=== PATIENT | female | born 1930 | race Caucasian/White ===

== ENCOUNTER 2017-02-09 18:30 | Inpatient (IN) ==
[2017-02-09] MEDS ORDERED: HYDROMORPHONE 2 MG/ML INJECTION IVP ONE (18:52)
--- NOTE | 2017-02-09 18:56 | Emergency Department Report ---
Medical Clearance HPI - General Chief complaint: Medical Clearance Stated complaint: Medical Clearance for [facility] Time Seen by Provider: 02/09/17 18:52 Source: patient, EMS Mode of arrival: EMS Limitations: altered mental status - History of Present Illness HPI Narrative: Vision has been accepted to [facility] for acute psychiatric disorder of the elderly. Poorly the patient had been wandering around in her yard when she fell, and at the time wasn't an acute psychotic break. Patient was asked to be seen through the ER since her blood pressure had been running high in the systolic range, 200/76. On arrival the patient's blood pressure was 200/78, and the patient complained of mild right shoulder pain. In review of the chart it seen that the patient has a minimally displaced humeral head fracture, but has not been given any pain medication. Patient is still accepted to [facility], the rest of the physical exam is essentially normal, and the patient is given half milligram of IV Dilaudid to help treat her pain and will be transported to [facility] currently. Allergies/Adverse reactions: Allergies Allergy/AdvReac Type Severity Reaction Status Date / Time Penicillins Allergy Verified 02/09/17 18:45 Sulfa (Sulfonamide Allergy Verified 02/09/17 18:45 Antibiotics) PFSH Dementia with acute psychosis Right humeral head fracture Physical Exam - Limitations Limitations: no limitations - General General appearance: alert - Normal Exams: Head:: Normocephalic without trauma Eyes:: Pupils are PERRLA w/ EOMI, No scleral icterus, irritation, or foreign bodies noted ENMT:: No facial trauma, nasal exudates, pharyngeal erythema, or exudates are noted Neck:: Full range of motion, without adenopathy, JVD, bruits or thyromegaly Chest/Respirations:: Clear all chow, with good airflow, and symmetry bilaterally Cardiovascular:: Regular rate and rhythm, without murmur or gallop, Pulses 2+ all extremities, capillary refill, <2 seconds all extremities Abdomen:: Bowel sounds positive, soft, non-tender, non-distended, no hepatosplenomegaly, masses or bruits noted Lymphatic:: No lymphadenopathy, or lymphedema noted Integumentary:: No rashes, hives, or bruising noted, hair and nails, without abnormality Neurological:: Patient is alert, and oriented, cranial nerves, motor/sensory/ cerebellar, exams w/o gross deficits, to observation Psychiatric:: Patient exhibits, appropriate attention, emotion and affect - Extremities Exam Extremities exam: Present: other (right upper shoulder pain, lateral. Patient is in a shoulder sling and well immobilized.) Medical Clearance - [facility] Narrative Medical decision making narrative: Patient is cleared medically, given 0.5 mg Dilaudid IV for shoulder pain after fracture, and is transported degenerations as planned. Disposition Clinical Impression: Dementia with psychosis Humeral head fracture Qualifiers: Encounter type: initial encounter Fracture type: closed Laterality: right Qualified Code(s): S42.291A - Other displaced fracture of upper end of right humerus, initial encounter for closed fracture Disposition: 65 To Psych Hosp/Unit Condition: Improved - Seen By: physician
[2017-02-09] MEDS ORDERED: ENALAPRILAT 1.25 MG/ML IVP SCH (20:00)
--- OUTSIDE RECORDS SUMMARY | 2017-02-09 21:16 | External Medical Summary | Continuity of Care Document ---
:1930 Author Organization [facility] Care Team Providers Name Role Phone RAMEZ LOPEZ MD Unavailable Unavailable Insurance Providers Payer Name Policy Number Subscriber Name Relationship Medicare A And B [id number] Isa Lantigua 18 Self / Same As Patient Blue Cross [facility] Supp [id number] Isa Lantigua 18 Self / Same As Patient Advance Directives Directive Response Recorded Date/Time Advanced Directives Yes 08/08/15 2:22pm Type Durable Power of Microfilm Clerk 08/08/15 2:22pm Type Living Will 08/08/15 2:22pm Chief Complaint and Reason for Visit Chief Complaint Cardiac Complaint Reason for Visit [id number] Vertigo Anginal equivalent Problems Active Problems Medical Problem Onset Date Status Abdominal pain 12/28/2011 Resolved Anginal equivalent Unknown Acute Hypertensive emergency 03/31/2014 Acute Otitis media Unknown Acute Urinary frequency ~12/04/2013 Acute Urinary retention ~12/04/2013 Acute Vertigo Unknown Acute Medications Current Home Medications Medication Dose Units Route Directions Days/Qty Instructions Start Date Pantoprazole Sod 40 Mg 40 Mg ORAL Twice A Day 12/28/11 Diltiazem Hcl 240 Mg 240 Mg ORAL Daily 12/04/13 Multivitamin 1 Each 1 Each ORAL Daily 12/04/13 Vitamin C/Vitamin E 1 1 Tab ORAL Daily 12/04/13 Tab Cholecalciferol (Vitamin 1,000 Unit ORAL Daily 12/04/13 D3) 1,000 Unit [place] 3 Polyunsat Fatty 1,000 Mg ORAL Daily 03/31/14 Acids 1,000 Mg Losartan Potassium 100 100 Mg ORAL Daily 30 04/05/14 Mg Metoprolol Succinate 50 50 Mg ORAL Twice A Day 60 04/05/14 Mg Hydrochlorothiazide 25 25 Mg ORAL Daily 30 04/05/14 Mg Meclizine Hcl (Antivert) 12.5 Mg ORAL As Directed 08/08/15 12.5 Mg Past Home Medications Medication Directions Ordered Status Metoprolol Succinate 25 Mg Tab, 12/28/11 Discontinued Dexamethasone 15 Ml Drops.susp, 12/28/11 Discontinued [place]ldon-3 Fatty Acids 300 Mg Capsule, 12/28/11 Discontinued Losartan Potassium (Cozaar) 50 Mg Tablet, 50 Mg Oral Daily 12/04/13 Discontinued Isosorbide Dinitrate 30 Mg Tablet, 30 Mg Oral Daily 12/04/13 Discontinued Nitroglycerin 1 Each Patch.td24, 1 Each Transdermal Daily 12/04/13 Discontinued Social History Social History Problem Response Recorded Date/Time Onset Date Status Exposure to occupational hazards No 03/31/2014 3:03pm Query Response Start Date Stop Date Smoking Status Never smoker Hospital Discharge Instructions No hospital discharge instructions. Plan of Care Discharge Date 08/08/15 4:37pm Disposition 01 HOME OR SELF-CARE Condition at Discharge Stable Instructions/Education Provided Angina (ED) Vertigo (ED) Chronic Hypertension (ED) Prescriptions See Medication Section Referrals RAMEZ LOPEZ MD - Additional Instructions/Education You have had uncontrolled hypertension with high blood pressures likely contributing to your jaw pain and dizziness. You were given a strong blood pressure medication (labetolol) in your IV to bring your blood pressure down for a few hours, so be careful when getting up on your feet to avoid fainting. Per your wishes (and those of your family) you are not being admitted to the hospital. You should call Dr. Lopez's office today to arrange follow up care. Resume all your home medicaitons. Return to the ER if you get worse. Some of your test results may not be complete prior to your leaving the Emergency Department. The Emergency Department is not authorized to give test results over the phone. Please contact the doctor's office listed in this packet of information for your final results. Follow up with your primary care physician or return to the Emergency Department for worsening or worrisome symptoms. * Emergency Department phone number: [phone], x [phone]* MEDICAL RECORD If you need copies of your X-rays, call [phone]. If you need copies of your medical record, including lab results, a signed authorization for release of records will be required. A telephone call for release of Health Information is not allowed. BILLING Billing can sometimes be confusing and frustrating. To help avoid confusion in the future, please take a moment to acquaint yourself with the billing parties for services. SERVICE BILLING [employer] Emergency Room Services [facility] Physician Services [facility] X-[facility] [place] [facility] Patients will receive bills for services from the appropriate provider. If you have any questions about your [facility] bill, our staff will be happy to assist you. Please call [phone], and ask for the billing department. THANK YOU for choosing [facility] as your emergency care provider! Care Plan and Goals ~~Discharge Care Plan~~ Problem: Chest, epigastric or chest wall pain Goal: Decreased pain Instructions: Take medication(s) as directed. Follow home discharge instructions. Follow up with primary care physician or pet supplies salesperson as directed. Functional Status No functional status results. Allergies, Adverse Reactions, Alerts Allergen Type Severity Reaction Status Last Updated Penicillin Allergy Unknown Active 08/08/15 Sulfa (Sulfonamide Antibiotics) Allergy Unknown Active 08/08/15 Immunizations No immunization records. Vital Signs Acute Vital Signs Vital Response Date/Time Pulse 66 bpm 08/08/2015 4:35pm Respirations 18 08/08/2015 4:35pm Height 5 ft 4 in Weight 132 lb Body Mass Index 22.0 kg/m^2 Results Laboratory Results Test Name Result Units Flags Reference Collection Result Comments Date/Time Date/Time White Blood Count 8.79 10^3uL 4.0-11.0 08/08/2015 08/08/2015 2:28pm 2:46pm Red Blood Count 4.45 10^6uL 4.00-5.00 08/08/2015 08/08/2015 2:28pm 2:46pm Hemoglobin 12.9 g/dL 12.0-15.5 08/08/2015 08/08/2015 2:28pm 2:46pm Hematocrit 38.60 % 35.00-45.00 08/08/2015 08/08/2015 2:28pm 2:46pm Mean Corpuscular 87 FL 80-100 08/08/2015 08/08/2015 Volume 2:28pm 2:46pm Mean Corpuscular 29.0 PG 26.0-34.0 08/08/2015 08/08/2015 Hemoglobin 2:28pm 2:46pm Mean Corpuscular 33.4 g/dL 31.0-37.0 08/08/2015 08/08/2015 Hemoglobin Concent 2:28pm 2:46pm Red Cell 13.7 % 11.8-15.6 08/08/2015 08/08/2015 Distribution Width 2:28pm 2:46pm Platelet Count 238 10^3uL 150-450 08/08/2015 08/08/2015 2:28pm 2:46pm Mean Platelet 10.2 FL H 6.0-9.5 08/08/2015 08/08/2015 Volume 2:28pm 2:46pm Neutrophils (%) 64 % 51-67 08/08/2015 08/08/2015 (Auto) 2:28pm 2:46pm Lymphocytes (%) 27 % 20-46 08/08/2015 08/08/2015 (Auto) 2:28pm 2:46pm Monocytes (%) 8 % 3-11 08/08/2015 08/08/2015 (Auto) 2:28pm 2:46pm Eosinophils (%) 1 % 0-4 08/08/2015 08/08/2015 (Auto) 2:28pm 2:46pm Basophils (%) 0 % 0-2 08/08/2015 08/08/2015 (Auto) 2:28pm 2:46pm Neutrophils # 5.6 X10^3 08/08/2015 08/08/2015 (Auto) 2:28pm 2:46pm Lymphocytes # 2.4 X10^3 08/08/2015 08/08/2015 (Auto) 2:28pm 2:46pm Monocytes # (Auto) 0.7 X10^3 08/08/2015 08/08/2015 2:28pm 2:46pm Eosinophils # 0.1 10^3uL 08/08/2015 08/08/2015 (Auto) 2:28pm 2:46pm Basophils # (Auto) 0.0 10^3uL 08/08/2015 08/08/2015 2:28pm 2:46pm Prothrombin Time 13.3 SEC 12.0-14.5 08/08/2015 08/08/2015 2:28pm 2:46pm Prothromb Time 1.0 0.8-1.4 08/08/2015 08/08/2015 International 2:28pm 2:46pm Ratio Volume Urine 12 mL 08/08/2015 08/08/2015 Centrifuged 3:00pm 3:47pm Urine Collection CLEAN 08/08/2015 08/08/2015 Type CATCH 3:00pm 3:47pm Urine Color Yellow 08/08/2015 08/08/2015 3:00pm 3:44pm Urine Clarity Slightly 08/08/2015 08/08/2015 Cloudy 3:00pm 3:44pm Urine pH 7.0 5.0 - 8.0 08/08/2015 08/08/2015 3:00pm 3:44pm Urine Specific 1.025 1.005-1.030 08/08/2015 08/08/2015 [place] 3:00pm 3:44pm Urine Protein Negative Negative 08/08/2015 08/08/2015 3:00pm 3:44pm Urine Glucose (UA) Negative Negative 08/08/2015 08/08/2015 3:00pm 3:44pm Urine RBC (Auto) Trace-inta H Negative 08/08/2015 08/08/2015 ct 3:00pm 3:44pm Urine Ketones Negative Negative 08/08/2015 08/08/2015 3:00pm 3:44pm Urine Nitrite Negative Negative 08/08/2015 08/08/2015 3:00pm 3:44pm Urine Bilirubin Negative Negative 08/08/2015 08/08/2015 3:00pm 3:44pm Urine Urobilinogen 0.2 mg/dL 0.2-1.0 08/08/2015 08/08/2015 3:00pm 3:44pm Urine Leukocyte Negative Negative 08/08/2015 08/08/2015 Esterase 3:00pm 3:44pm Urine RBC 2-5 /HPF 08/08/2015 08/08/2015 3:00pm 3:47pm Urine WBC 2-5 /HPF 08/08/2015 08/08/2015 3:00pm 3:47pm Urine Bacteria None Seen /HPF 08/08/2015 08/08/2015 3:00pm 3:47pm Urine Squamous 50-100 /LPF 08/08/2015 08/08/2015 Epithelial Cells 3:00pm 3:47pm Sodium Level 145 mmol/L 135-150 08/08/2015 08/08/2015 2:28pm 2:47pm Potassium Level 4.0 mmol/L 3.5-5.1 08/08/2015 08/08/2015 2:28pm 2:47pm Chloride Level 102 mmol/L 98-108 08/08/2015 08/08/2015 2:28pm 2:47pm Carbon Dioxide 30 mmol/L H 22-29 08/08/2015 08/08/2015 Level 2:28pm 2:47pm Anion Gap 16.4 MEQ/L H 3-15 08/08/2015 08/08/2015 2:28pm 2:47pm Blood Urea 24 mg/dL H 7-18 08/08/2015 08/08/2015 Nitrogen 2:28pm 2:47pm Creatinine 0.89 mg/dL 0.6-1.2 08/08/2015 08/08/2015 2:28pm 2:47pm BUN/Creatinine 27 H 10-20 08/08/2015 08/08/2015 Ratio 2:28pm 2:47pm Estimat Glomerular 72.6 08/08/2015 08/08/2015 Filtration Rate 2:28pm 2:47pm Estimated GFR 60.0 08/08/2015 08/08/2015 (Non- 2:28pm 2:47pm [place] Glucose Level 107 mg/dL 70-110 08/08/2015 08/08/2015 2:28pm 2:47pm Calculated 283 mosm/L 280-300 08/08/2015 08/08/2015 Osmolality 2:28pm 2:47pm Calcium Level 10.1 mg/dL 8.8-10.8 08/08/2015 08/08/2015 2:28pm 2:47pm Calcium/Ionized 4.4 mg/dL 3.8-4.6 08/08/2015 08/08/2015 Calcium Ratio 2:28pm 2:47pm Total Bilirubin 0.7 mg/dL 0.1-1.0 08/08/2015 08/08/2015 2:28pm 2:47pm Alkaline 98 U/L 38-126 08/08/2015 08/08/2015 Phosphatase 2:28pm 2:47pm Aspartate Amino 22 U/L 15-37 08/08/2015 08/08/2015 Transf (AST/SGOT) 2:28pm 2:47pm Alanine 27 U/L L 30-65 08/08/2015 08/08/2015 Aminotransferase 2:28pm 2:47pm (ALT/SGPT) Total Creatine 26 U/L L 30-135 08/08/2015 08/08/2015 Kinase 2:28pm 2:47pm Creatine Kinase MB 0.4 ng/mL 0.0-6.0 08/08/2015 08/08/2015 2:28pm 2:57pm Troponin I 0.018 ng/mL 0.010-0.080 08/08/2015 08/08/2015 2:28pm 2:57pm TK-Cad-N-Type 992 pg/mL H 0-450 08/08/2015 08/08/2015 Natriuretic 2:28pm 2:57pm <300 ng/mL - HF unlikely Peptide Age <50 years, NT-proBNP >450 pg/mL - HF Likely Age 50-75 yrs, NT-proBNP >900 pg/mL - HF Likely Age >75 yrs, NT-proBNP >1800 - HF likely Total Protein 7.3 g/dL 6.4-8.5 08/08/2015 08/08/2015 2:28pm 2:47pm Albumin 4.4 g/dL 3.4-5.0 08/08/2015 08/08/2015 2:28pm 2:47pm Albumin/Globulin 1.517 1.1-1.8 08/08/2015 08/08/2015 Ratio 2:28pm 2:47pm Thyroid 2.64 uIU/mL 0.46-4.68 08/08/2015 08/08/2015 Stimulating 2:28pm 3:19pm Hormone (TSH) Procedures No known history of procedures. Encounters Encounter Location Arrival/Admit Date Discharge/Depart Date Attending Provider Departed Jael 08/08/15 2:10pm 08/08/15 4:37pm DAVIDE Emergency Room [facility] Recent Diagnosis
--- OUTSIDE RECORDS SUMMARY | 2017-02-09 21:16 | External Medical Summary ---
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
--- OUTSIDE RECORDS SUMMARY | 2017-02-09 21:17 | External Medical Summary | Continuity of Care Document ---
:1930 Author Organization [facility] Care Team Providers Name Role Phone RAMEZ LOPEZ MD Unavailable Unavailable Insurance Providers Payer Name Policy Number Subscriber Name Relationship Medicare A And B [id number] Isa Lantigua 18 Self / Same As Patient Blue Cross [facility] Supp [id number] Isa Lantigua 18 Self / Same As Patient Advance Directives Directive Response Recorded Date/Time Advanced Directives Yes 08/15/15 11:25am Type Durable Power of Diagnostic Sales Specialist 08/15/15 11:25am Type Living Will 08/15/15 11:25am Chief Complaint and Reason for Visit Chief Complaint Cardiac Complaint Reason for Visit Uncontrolled hypertension Problems Active Problems Medical Problem Onset Date Status Abdominal pain 12/28/2011 Resolved Anginal equivalent Unknown Acute Hypertensive emergency 03/31/2014 Acute Otitis media Unknown Acute Uncontrolled hypertension Unknown Acute Urinary frequency ~12/04/2013 Acute Urinary retention ~12/04/2013 Acute Vertigo Unknown Acute Medications Current Home Medications Medication Dose Units Route Directions Days/Qty Instructions Start Date Diltiazem Hcl 240 Mg 240 Mg ORAL Daily 12/04/13 Multivitamin 1 Each 1 Each ORAL Daily 12/04/13 Vitamin C/Vitamin E 1 1 Tab ORAL Daily 12/04/13 Tab Cholecalciferol (Vitamin 1,000 Unit ORAL Daily 12/04/13 D3) 1,000 Unit Lewis 3 Polyunsat Fatty 1,000 Mg ORAL Daily 03/31/14 Acids 1,000 Mg Losartan Potassium 100 100 Mg ORAL Daily 30 04/05/14 Mg Metoprolol Succinate 50 50 Mg ORAL Twice A Day 60 04/05/14 Mg Hydrochlorothiazide 25 25 Mg ORAL Daily 30 12/31/14 Mg Meclizine Hcl (Antivert) 12.5 Mg ORAL As Directed 08/08/15 12.5 Mg Ranitidine Hcl 150 Mg 150 Mg ORAL Twice A Day 08/15/15 Past Home Medications Medication Directions Ordered Status Metoprolol Succinate 25 Mg Tab, 12/28/11 Discontinued Pantoprazole Sod 40 Mg Tab, 40 Mg Oral Twice A Day 12/28/11 Discontinued Dexamethasone 15 Ml Drops.susp, 12/28/11 Discontinued Lewis-3 Fatty Acids 300 Mg Capsule, 12/28/11 Discontinued Losartan Potassium (Cozaar) 50 Mg Tablet, 50 Mg Daily 12/04/13 Discontinued Oral Isosorbide Dinitrate 30 Mg Tablet, 30 Mg Oral Daily 12/04/13 Discontinued Nitroglycerin 1 Each Patch.td24, 1 Each Transdermal Daily 12/04/13 Discontinued Social History Social History Problem Response Recorded Date/Time Onset Date Status Exposure to occupational hazards No 03/31/2014 3:03pm Query Response Start Date Stop Date Smoking Status Never smoker Hospital Discharge Instructions No hospital discharge instructions. Plan of Care Discharge Date 08/15/15 12:44pm Disposition 01 HOME OR SELF-CARE Condition at Discharge Stable Instructions/Education Provided Chronic Hypertension (ED) Prescriptions See Medication Section Referrals RAMEZ LOPEZ MD - Additional Instructions/Education You should continue your medications as before. Dr. Lopez increased your metoprolol to 50 mg twice a day, and it may take several days to have much affect. If you have further concerns about your blood pressure, call Dr. Lopez instead of coming to the ER. Some of your test results may not [...] worrisome symptoms. * Emergency Department phone number: [phone], x [phone]* MEDICAL RECORD If you need copies of your X-rays, call [phone]. If you need copies of [...] the billing parties for services. SERVICE BILLING [place] Emergency Room Services [facility] Physician Services [facility] X-rays [place] [facility] Patients will receive bills for services from the appropriate provider. If you have any questions about your [facility] bill, our staff will be happy to assist you. Please call [phone], and ask for the billing department. THANK YOU for choosing [facility] as your emergency care provider! Care Plan and Goals ~~Discharge Care Plan~~ Problem: Chest, epigastric or chest wall pain Goal: Decreased pain Instructions: Take medication(s) as directed. Follow home discharge instructions. Follow up with primary care physician or tile and mottle supervisor as directed. Functional Status No functional status results. Allergies, Adverse Reactions, Alerts Allergen Type Severity Reaction Status Last Updated Penicillin Allergy Unknown Active 08/08/15 Sulfa (Sulfonamide Antibiotics) Allergy Unknown Active 08/08/15 Immunizations No immunization records. Vital Signs Acute Vital Signs Vital Response Date/Time Temperature (Fahrenheit) 97.9 08/15/2015 12:43pm Pulse 52 bpm 08/15/2015 12:43pm Respirations 18 08/15/2015 12:43pm Height 5 ft 4 in Weight 165 lb Body Mass Index 28.0 kg/m^2 Results Laboratory Results Test Name Result [...] 3:44pm Urine Specific 1.025 1.005-1.030 08/08/2015 08/08/2015 [place] 3:00pm 3:44pm Urine Protein Negative Negative 08/08/2015 [...] GFR 60.0 08/08/2015 08/08/2015 (Non- 2:28pm 2:47pm [place] Glucose Level 107 mg/dL 70-110 08/08/2015 08/08/2015 [...] 0.018 ng/mL 0.010-0.080 08/08/2015 08/08/2015 2:28pm 2:57pm RN-Fxn-M-Type 992 pg/mL H 0-450 08/08/2015 08/08/2015 Natriuretic [...] Arrival/Admit Date Discharge/Depart Date Attending Provider Departed Hina 08/15/15 11:17am 08/15/15 12:44pm [facility] RONAN Ramirez DO Departed Elder 08/08/15 2:10pm 08/08/15 4:37pm DAVIDE, Emergency Room Hospital RONAN Ramirez DO Recent Diagnosis
--- OUTSIDE RECORDS SUMMARY | 2017-02-09 21:17 | External Medical Summary | Continuity of Care Document ---
:1930 Author Organization [facility] Care Team Providers Name Role Phone RAMEZ BOYD MD Unavailable Unavailable Insurance Providers Payer Name Policy Number Subscriber Name Relationship Medicare A And B [id number] Isa Lantigua 18 Self / Same As Patient [employer] [facility] [place] Supp [id number] Isa Lantigua 18 Self / Same As Patient Advance Directives Directive Response Recorded Date/Time Advanced Directives Yes 08/20/15 7:05pm Type Durable Power of Implementation Advisor 08/20/15 7:05pm Type Living Will 08/20/15 7:05pm Problems Active Problems Medical Problem Onset Date Status Abdominal pain 12/28/2011 Resolved Anginal equivalent Unknown Acute Chest pain Unknown Acute Elevated troponin Unknown Acute Hypertensive emergency 03/31/2014 Acute Otitis media Unknown Acute Uncontrolled hypertension Unknown Acute Urinary frequency ~12/04/2013 Acute Urinary retention ~12/04/2013 Acute Vertigo Unknown Acute Medications Current Home Medications Medication Dose Units Route Directions Days/Qty Instructions Start Date Diltiazem Hcl 240 Mg 240 Mg ORAL Daily 12/04/13 Multivitamin 1 Each 1 Each ORAL Daily 12/04/13 Losartan Potassium 100 100 Mg ORAL Daily 30 04/05/14 Mg Metoprolol Succinate 50 50 Mg ORAL Twice A Day 60 04/05/14 Mg Ranitidine Hcl 150 Mg 150 Mg ORAL Twice A Day 08/15/15 Isosorbide Mononitrate 30 Mg ORAL Twice A Day 08/20/15 (Imdur) 30 Mg Pantoprazole Sod 40 Mg 40 Mg ORAL Bedtime 08/20/15 Memantine Hcl 28 Mg 28 Mg ORAL Daily 08/20/15 [Vit C] 500 Mg Twice A Day 08/20/15 Meclizine Hcl 25 Mg 25 Mg ORAL Daily 08/20/15 Past Home Medications Medication Directions Ordered Status Metoprolol Succinate 25 Mg Tab, 12/28/11 Discontinued Pantoprazole Sod 40 Mg Tab, 40 Mg Oral Twice A Day 12/28/11 Discontinued Dexamethasone 15 Ml Drops.susp, 12/28/11 Discontinued [place]-3 Fatty Acids 300 Mg Capsule, 12/28/11 Discontinued Losartan Potassium (Cozaar) 50 Mg Tablet, 50 Mg Daily 12/04/13 Discontinued Oral Isosorbide Dinitrate 30 Mg Tablet, 30 Mg Oral Daily 12/04/13 Discontinued Nitroglycerin 1 Each Patch.td24, 1 Each Transdermal Daily 12/04/13 Discontinued Vitamin C/Vitamin E 1 Tab Tab, 1 Tab Oral Daily 12/04/13 Discontinued Cholecalciferol (Vitamin D3) 1,000 Unit Tablet, Daily 12/04/13 Discontinued 1000 Unit Oral [place] 3 Polyunsat Fatty Acids 1,000 Mg Cap, 1000 Mg Daily 03/31/14 Discontinued Oral Hydrochlorothiazide 25 Mg Tab, 25 Mg Oral Daily 04/05/14 Discontinued Meclizine Hcl (Antivert) 12.5 Mg Tablet, 12.5 Mg As Directed 08/08/15 Discontinued Oral Social History Social History Problem Response Recorded Date/Time Onset Date Status Exposure to occupational hazards No 03/31/2014 3:03pm Query Response Start Date Stop Date Smoking Status Never smoker Hospital Discharge Instructions Current inpatient/outpatient. Discharge instructions are currently unavailable. Plan of Care Prescriptions Functional Status No functional status results. Allergies, Adverse Reactions, Alerts Allergen Type Severity Reaction Status Last Updated Penicillin Allergy Unknown Active 08/20/15 Sulfa (Sulfonamide Antibiotics) Allergy Unknown Active 08/20/15 Immunizations No immunization records. Vital Signs Acute Vital Signs Vital Response Date/Time Temperature (Fahrenheit) 99 08/20/2015 7:05pm Pulse 87 bpm 08/20/2015 9:14pm Respirations 30 08/20/2015 9:14pm Results Laboratory Results Test Name Result Units [...] 3:44pm Urine Specific 1.025 1.005-1.030 08/08/2015 08/08/2015 [place] 3:00pm 3:44pm Urine Protein Negative Negative 08/08/2015 [...] GFR 60.0 08/08/2015 08/08/2015 (Non- 2:28pm 2:47pm [place] Glucose Level 107 mg/dL 70-110 08/08/2015 08/08/2015 [...] 0.018 ng/mL 0.010-0.080 08/08/2015 08/08/2015 2:28pm 2:57pm QN-Lrn-G-Type 992 pg/mL H 0-450 08/08/2015 08/08/2015 Natriuretic [...] 08/08/2015 08/08/2015 Stimulating 2:28pm 3:19pm Hormone (TSH) Pending Laboratory Results Test Name Collection Date/Time Procedures Procedure Status Date Provider(s) CHEST X-RAY 1 VIEW FRONTAL Completed 08/08/15 COMPREHEN METABOLIC PANEL Completed 08/08/15 URINALYSIS AUTO W/O SCOPE Completed 08/08/15 MICROSCOPIC EXAM OF URINE Completed 08/08/15 ASSAY OF CK (CPK) Completed 08/08/15 CREATINE MB FRACTION Completed 08/08/15 ASSAY OF NATRIURETIC PEPTIDE Completed 08/08/15 ASSAY THYROID STIM HORMONE Completed 08/08/15 ASSAY OF TROPONIN QUANT Completed 08/08/15 COMPLETE CBC W/AUTO DIFF WBC Completed 08/08/15 PROTHROMBIN TIME Completed 08/08/15 ELECTROCARDIOGRAM TRACING Completed 08/08/15 THER/PROPH/DIAG INJ IV PUSH Completed 08/08/15 EMERGENCY DEPT VISIT Completed 08/08/15 Completed 08/08/15 Completed 08/08/15 Completed 08/08/15 Encounters Encounter Location Arrival/Admit Date Discharge/Depart Date Attending Provider Registered Hina 08/20/15 9:00pm [facility] JUANITA Urias MD Registered Hina 08/20/15 7:05pm [facility] JUANITA Urias MD Departed Hina 08/15/15 11:17am 08/15/15 12:44pm AUGUSTINE, Emergency Room [facility] RONAN Ramirez DO Departed Elder 08/08/15 2:10pm 08/08/15 4:37pm DAVIDE Emergency Room [facility] RONAN Ramirez DO
--- OUTSIDE RECORDS SUMMARY | 2017-02-09 21:18 | External Medical Summary | Continuity of Care Document ---
:1930 Author Organization [facility] Allergies Active Description Code Type Severity Reaction Onset Reported/ Identified Relationship Clinical to Patient Status Yes No Known No Drug Unknown N/A 07/06/2008 Contrast Known Aller Allergies Contr gy ast Aller gies Yes No Known No Drug Unknown N/A 07/06/2008 Food Known Aller Allergies Food gy Aller gies Yes NO KNOWN NO Drug Unknown N/A 07/06/2008 LATEX KNOWN Aller ALLERGY/SENS LATEX gy ITI ALLER GY/SE NSITI Yes PENICILLIN PENIC Drug Unknown N/A 07/06/2008 ILLIN Aller gy Yes Penicillins Penic Drug Unknown N/A 07/06/2008 illin Aller s gy Yes Sulfa Sulfa Drug Unknown N/A 07/06/2008 (Sulfonamide (Sulf Aller Antibiotics) onami gy de Antib iotic s) Yes SULFA DRUGS SULFA Drug Unknown N/A 07/06/2008 DRUGS Aller gy Yes Penicillins F0010 Drug Unknown N/A 08/20/2015 29374 Aller gy Yes Sulfa F0010 Drug Unknown N/A 08/20/2015 (Sulfonamide 74817 Aller Antibiotics) gy Yes Penicillins Penic Drug Unknown UNKNOWN 08/20/2015 illin Aller s gy Yes Sulfa Sulfa Drug Unknown UNKNOWN 08/20/2015 (Sulfonamide (Sulf Aller Antibiotics) onami gy de Antib iotic s) Medications Problems Date Dx Attending Type Code Diagnosis Diagnosed By Coded 04/03/2014 OLIVER BRANTLEY, Ot 396.3 RAMEZ R 04/03/2014 OLIVER BRANTLEY, Ot 416.8 RAMEZ R 04/03/2014 OLIVER BRANTLEY, Ot 427.31 RAMEZ R 04/05/2014 OLIVER BRANTLEY, Ot 396.3 RAMEZ R 04/05/2014 OLIVER BRANTLEY, Ot 416.8 RAMEZ R 04/05/2014 OLIVER BRANLTEY, Ot 427.31 RAMEZ R 04/05/2014 JOHN BRANTLEY, Ot 268.9 JESUS H 04/05/2014 JOHN BRANTLEY, Ot 294.20 JESUS H 04/05/2014 JOHN BRANTLEY, Ot 401.9 JESUS H 04/05/2014 JOHN BRANTLEY, Ot 427.31 JESUS H 04/05/2014 JOHN BRANTLEY, Ot 428.0 JESUS H 04/05/2014 JOHN BRANTLEY, Ot 530.81 JESUS H 04/05/2014 JOHN BRANTLEY, Ot 715.90 JESUS H 04/05/2014 JOHN BRANTLEY, Ot 780.97 JESUS H 04/05/2014 JOHN BRANTLEY, Ot 784.0 JESUS H 04/05/2014 JOHN BRANTLEY, Ot V14.0 JESUS H 04/05/2014 JOHN BRANTLEY, Ot V14.2 JESUS H 04/05/2014 JOHN BRANTLEY, Ot V15.81 JESUS H 04/05/2014 JOHN BRANTLEY, Ot V49.86 JESUS H 06/28/2014 Ot 348.89 06/28/2014 Ot 780.93 06/30/2014 Ot 244.9 06/30/2014 Ot 250.00 06/30/2014 Ot 275.2 06/30/2014 Ot 285.9 06/30/2014 Ot 427.9 06/30/2014 Ot 599.0 06/30/2014 Ot 786.2 06/30/2014 Ot 790.6 07/06/2014 Ot 348.89 07/06/2014 Ot 780.93 09/12/2014 OLIVER BRANTLEY, Ot 599.0 RAMEZ R 10/13/2014 OLIVER BRANTLEY, Ot 275.2 RAMEZ R 10/13/2014 OLIVER BRANTLEY, Ot 733.00 RAMEZ R 10/13/2014 OLIVER BRANTLEY, Ot 790.6 RAMEZ R 10/16/2014 MARQUES KELLY Ot 392.9 D 12/26/2014 OLIVER BRANTLEY, Ot 250.00 RAMEZ R 01/12/2015 OLIVER BRANTLEY, Ot 250.00 RAMEZ R 01/12/2015 OLIVER BRANTLEY, Ot 790.6 RAMEZ R 08/08/2015 AUGUSTINE DO, Ot I10 ESSENTIAL (PRIMARY) RONAN Ramirez HYPERTENSION 08/08/2015 AUGUSTINE DO, Ot 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 08/08/2015 AUGUSTINE DO, Ot I50.9 HEART FAILURE, RONAN M UNSPECIFIED 08/08/2015 AUGUSTINE DO, Ot R42 DIZZINESS AND RONAN Ramirez GIDDINESS 08/08/2015 AUGUSTINE DO, Ot R68.84 JAW PAIN RONAN M 08/15/2015 AUGUSTINE DO, Ot I10 ESSENTIAL (PRIMARY) RONAN M HYPERTENSION 08/15/2015 AUGUSTINE DO, Ot 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 08/16/2015 AUGUSTINE DO, Ot I10 ESSENTIAL (PRIMARY) RONAN Ramirez HYPERTENSION 08/16/2015 AUGUSTINE DO, Ot 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 08/16/2015 AUGUSTINE DO, Ot I50.9 HEART FAILURE, RONAN M UNSPECIFIED 08/16/2015 AUGUSTINE DO, Ot R42 DIZZINESS AND RONAN Ramirez GIDDINESS 08/16/2015 AUGUSTINE DO, Ot R68.84 JAW PAIN RONAN Ramirez 08/20/2015 HARRISON BRANTLEY, Ot I10 ESSENTIAL (PRIMARY) GRANT R HYPERTENSION 08/20/2015 HARRISON BRANTLEY, Ot I50.9 HEART FAILURE, GRANT R UNSPECIFIED 08/20/2015 HARRISON BRANTLEY, Ot R07.89 OTHER CHEST PAIN GRANT R 08/20/2015 HARRISON BRANTLEY, Ot R79.89 OTHER SPECIFIED GRANT R ABNORMAL FINDINGS OF BLO 08/20/2015 HARRISON BRANTLEY, Ot Z87.891 PERSONAL HISTORY OF GRANT R NICOTINE DEPENDENCE 08/20/2015 Julio Cesar BRANTLEY, Ameya Parish R07.9 CHEST PAIN, W UNSPECIFIED 08/22/2015 AUGUSTINE DO, Ot I10 ESSENTIAL (PRIMARY) RONAN Ramirez HYPERTENSION 08/22/2015 AUGUSTINE DO, Ot 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 08/23/2015 HARRISON BRANTLEY, Ot R07.89 OTHER CHEST PAIN GRANT R 08/23/2015 HARRISON BRANTLEY, Ot R79.89 OTHER SPECIFIED GRANT R ABNORMAL FINDINGS OF BLO 08/23/2015 HARRISON BRANTLEY, Ot I10 ESSENTIAL (PRIMARY) GRANT R HYPERTENSION 08/23/2015 HARRISON BRANTLEY, Ot I50.9 HEART FAILURE, GRANT R UNSPECIFIED 08/23/2015 HARRISON BRANLTEY, Ot R07.89 OTHER CHEST PAIN GRANT R 08/23/2015 HARRISON BRANTLEY, Ot R79.89 OTHER SPECIFIED GRANT R ABNORMAL FINDINGS OF BLO 08/23/2015 HARRISON BRANTLEY, Ot Z87.891 PERSONAL HISTORY OF GRANT R NICOTINE DEPENDENCE 08/26/2015 HARRISON BRANTLEY, Ot R07.89 OTHER CHEST PAIN GRANT R 08/26/2015 HARRISON BRANTLEY, Ot R79.89 OTHER SPECIFIED GRANT R ABNORMAL FINDINGS OF BLO 09/21/2015 HARRISON BRANTLEY, Ot R07.89 OTHER CHEST PAIN GRANT R 09/21/2015 HARRISON BRANTLEY, Ot R79.89 OTHER SPECIFIED GRANT R ABNORMAL FINDINGS OF BLO 09/25/2015 HARRISON BRANTLEY, Ot R07.89 OTHER CHEST PAIN GRANT R 09/25/2015 HARRISON BRANTLEY, Ot R79.89 OTHER SPECIFIED GRANT R ABNORMAL FINDINGS OF BLO 11/08/2015 MARQUES KELLY Ot 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.9 RHEUMATIC CHOREA NOS D 06/04/2016 OLIVER BRANTLEY, Ot E78.2 MIXED HYPERLIPIDEMIA RAMEZ R 06/04/2016 OLIVER BRANTLEY, Ot R79.89 OTHER SPECIFIED RAMEZ R ABNORMAL FINDINGS OF BLO 06/04/2016 OLIVER BRANTLEY, Ot E78.2 MIXED HYPERLIPIDEMIA RAMEZ R 06/04/2016 OLIVER BRANTLEY, Ot R79.89 OTHER SPECIFIED RAMEZ R ABNORMAL FINDINGS OF BLO 06/04/2016 OLIVER BRANTLEY, Ot E78.2 MIXED HYPERLIPIDEMIA RAMEZ R 06/04/2016 OLIVER BRANTLEY, Ot R79.89 OTHER SPECIFIED RAMEZ R ABNORMAL FINDINGS OF BLO 06/04/2016 OLIVER BRANTLEY, Ot E78.2 MIXED HYPERLIPIDEMIA RAMEZ R 06/04/2016 OLIVER BRANTLEY, Ot R79.89 OTHER SPECIFIED RAMEZ R ABNORMAL FINDINGS OF BLO 06/06/2016 OLIVER BRANTLEY, Ot D50.8 OTHER IRON RAMEZ R DEFICIENCY ANEMIAS 06/06/2016 OLIVER BRANTLEY, Ot 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) 06/06/2016 OLIVER BRANTLEY, Ot E13.65 OTHER SPECIFIED RAMEZ R DIABETES MELLITUS WITH H 06/06/2016 OLIVER BRANTLEY, Ot E78.2 MIXED HYPERLIPIDEMIA RAMEZ R 06/06/2016 OLIVER BRANTLEY, Ot E83.42 HYPOMAGNESEMIA RAMEZ R 06/06/2016 OLIVER BRANTLEY, Ot 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 06/06/2016 OLIVER BRANTLEY, Ot 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 06/06/2016 OLIVER BRANTLEY, Ot K71.2 TOXIC LIVER DISEASE RAMEZ R WITH ACUTE HEPATITIS 06/06/2016 OLIVER BRANTLEY, Ot M81.0 AGE-RELATED RAMEZ R OSTEOPOROSIS W/O CURRENT PAT 06/06/2016 OLIVER BRANTLEY, Ot N39.0 URINARY TRACT RAMEZ R INFECTION, SITE NOT SPECIF 06/06/2016 OLIVER BRANTLEY, Ot R79.89 OTHER SPECIFIED RAMEZ R ABNORMAL FINDINGS OF BLO 06/10/2016 OLIVER BRANTLEY, Ot D50.8 OTHER IRON RAMEZ R DEFICIENCY ANEMIAS 06/10/2016 OLIVER BRANTLEY, Ot 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) 06/10/2016 OLIVER BRANTLEY, Ot E13.65 OTHER SPECIFIED RAMEZ R DIABETES MELLITUS WITH H 06/10/2016 OLIVER BRANTLEY, Ot E78.2 MIXED HYPERLIPIDEMIA RAMEZ R 06/10/2016 OLIVER BRANTLEY, Ot E83.42 HYPOMAGNESEMIA RAMEZ R 06/10/2016 OLIVER BRANTLEY, Ot 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 06/10/2016 OLIVER BRANTLEY, Ot 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 06/10/2016 OLIVER BRANTLEY, Ot K71.2 TOXIC LIVER DISEASE RAMEZ R WITH ACUTE HEPATITIS 06/10/2016 OLIVER BRANTLEY, Ot M81.0 AGE-RELATED RAMEZ R OSTEOPOROSIS W/O CURRENT PAT 06/10/2016 OLIVER BRANTLEY, Ot N39.0 URINARY TRACT RAMEZ R INFECTION, SITE NOT SPECIF 06/10/2016 OLIVER BRANTLEY, Ot R79.89 OTHER SPECIFIED RAMEZ R ABNORMAL FINDINGS OF BLO 06/25/2016 OLIVER BRANTLEY, Ot D50.8 OTHER IRON RAMEZ R DEFICIENCY ANEMIAS 06/25/2016 OLIVER BRANTLEY, Ot 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) 06/25/2016 OLIVER BRANTLEY, Ot E13.65 OTHER SPECIFIED RAMEZ R DIABETES MELLITUS WITH H 06/25/2016 OLIVER BRANTLEY, Ot E78.2 MIXED HYPERLIPIDEMIA RAMEZ R 06/25/2016 OLIVER BRANTLEY, Ot E83.42 HYPOMAGNESEMIA RAMEZ R 06/25/2016 OLIVER BRANTLEY, Ot 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 06/25/2016 OLIVER BRANTLEY, Ot 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 06/25/2016 OLIVER BRANTLEY, Ot K71.2 TOXIC LIVER DISEASE RAMEZ R WITH ACUTE HEPATITIS 06/25/2016 OLIVER BRANTLEY, Ot M81.0 AGE-RELATED RAMEZ R OSTEOPOROSIS W/O CURRENT PAT 06/25/2016 OLIVER BRANTLEY, Ot N39.0 URINARY TRACT RAMEZ R INFECTION, SITE NOT SPECIF 06/25/2016 OLIVER BRANTLEY, Ot R79.89 OTHER SPECIFIED RAMEZ R ABNORMAL FINDINGS OF BLO 07/02/2016 OLIVER BRANTLEY, Ot D50.8 OTHER IRON RAMEZ R DEFICIENCY ANEMIAS 07/02/2016 OLIVER BRANTLEY, Ot 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) 07/02/2016 OLIVER BRANTLEY, Ot E13.65 OTHER SPECIFIED RAMEZ R DIABETES MELLITUS WITH H 07/02/2016 OLIVER BRANTLEY, Ot E78.2 MIXED HYPERLIPIDEMIA RAMEZ R 07/02/2016 OLIVER BRANTLEY, Ot E83.42 HYPOMAGNESEMIA RAMEZ R 07/02/2016 OLIVER BRANTLEY, Ot 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 07/02/2016 OLIVER BRANTLEY, Ot 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 07/02/2016 OLIVER BRANTLEY, Ot K71.2 TOXIC LIVER DISEASE RAMEZ R WITH ACUTE HEPATITIS 07/02/2016 OLIVER BRANTLEY, Ot M81.0 AGE-RELATED RAMEZ R OSTEOPOROSIS W/O CURRENT PAT 07/02/2016 OLIVER BRANTLEY, Ot N39.0 URINARY TRACT RAMEZ R INFECTION, SITE NOT SPECIF 07/02/2016 OLIVER BRANTLEY, Ot R79.89 OTHER SPECIFIED RAMEZ R ABNORMAL FINDINGS OF BLO 07/04/2016 Ameya Harrell Ot Z51.81 ENCOUNTER FOR THERAPEUTIC DRUG LEVEL MON 07/04/2016 Ameya Harrell Ot Z79.899 OTHER [employer] EDUCATION [employer] (CURRENT) DRUG THERAPY 07/22/2016 Ameya Harrell Ot Z51.81 ENCOUNTER FOR THERAPEUTIC DRUG LEVEL MON 07/22/2016 Ameya Harrell Ot Z79.899 OTHER SPECIAL EDUCATION [employer] TE[employer]ER (CURRENT) DRUG THERAPY 10/25/2016 Ameya Harrell MD E78.5 HYPERLIPIDEMIA, W UNSPECIFIED 10/25/2016 Ameya Harrell MD F03.90 UNSPECIFIED DEMENTIA W WITHOUT BEHAVIORAL DISTURBANC 10/25/2016 Ameya Harrell MD I11.0 HYPERTENSIVE HEART W DISEASE WITH HEART FAILURE 10/25/2016 Ameya Harrell MD 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 ARTERY W/O 10/25/2016 Ameya Harrell MD I48.91 UNSPECIFIED ATRIAL W FIBRILLATION 10/25/2016 Ameya Harrell MD I50.9 HEART FAILURE, W UNSPECIFIED 10/25/2016 Ameya Harrell MD I73.9 PERIPHERAL VASCULAR W DISEASE, UNSPECIFIED 10/25/2016 Ameya Harrell MD K21.9 GASTRO-ESOPHAGEAL W REFLUX DISEASE WITHOUT ESOPHAGIT 10/25/2016 Ameya Harrell MD M19.90 UNSPECIFIED W OSTEOARTHRITIS, UNSPECIFIED SITE 10/25/2016 Ameya Harrell MD R07.9 CHEST PAIN, W UNSPECIFIED 10/25/2016 Ameya Harrell MD Z79.82 [employer]UC[employer] (CURRENT) W USE OF ASPIRIN 10/25/2016 Ameya Harrell MD Z85.828 PERSONAL HISTORY OF W OTHER MALIGNANT NEOPLASM OF [place] 10/25/2016 Ameya Harrell MD Z88.0 ALLERGY STATUS TO W PENICILLIN 10/25/2016 Ameya Harrell MD Z88.2 ALLERGY STATUS TO W SULFONAMIDES STATUS 10/25/2016 Ameya Harrell MD Z90.49 ACQUIRED ABSENCE OF W OTHER SPECIFIED PARTS OF DIGES 10/25/2016 Ameya Harrell MD Z90.710 ACQUIRED ABSENCE OF W BOTH CERVIX AND UTERUS Procedures Encounters ACCT Visit Discharge Status Pt. Type Provider Facility Loc./Unit Complaint No. Date/Time M0000 07/01/2016 07/01/2016 CLS Outpatient Hina Harrell LAB [id number] 12:42:00 23:59:59 [facility] 86 M0000 06/04/2016 06/04/2016 CLS Outpatient OLIVER Elder RAD RAD LAB [id number] 10:17:00 23:59:59 , [facility] EKG 67 R M0000 08/20/2015 08/20/2015 CLS Outpatient HARRISON [facility] [id number] 21:00:00 23:59:59 , [facility] 24 [facility] M0000 08/20/2015 08/20/2015 DIS Emergency [place] [id number] 19:05:00 21:15:00 , [address] R M0000 08/15/2015 08/15/2015 [place] [id number] 11:17:00 12:44:00 DO, [facility] 93 M M0000 08/08/2015 08/08/2015 [place] [id number] 14:10:00 [facility]37[facility] M[facility] 12/21/2014 12/21/2014 CLS Outpatient OLIVER Elder LAB [id number] 13:47:00 23:59:59 , [facility] 27 R M0000 09/21/2014 09/21/2014 CLS Outpatient PATRICKBULLCammy Hina LAB [id number] 15:03:00 23:59:59 , [facility] 79 R M0000 08/18/2014 08/18/2014 CLS Outpatient OLIVER Hina LAB [id number] 17:02:00 23:59:59 , [facility] 40 R M0000 05/20/2014 05/20/2014 CLS Outpatient Hina KELLY [facility] [id number] 10:49:00 23:59:59 [facility] 15 M0000 03/31/2014 04/05/2014 DIS Inpatient JOHN BRANTLEY, Hina ICU [id number] 14:15:00 14:13:00 [facility] 43 M0000 03/08/2014 03/08/2014 CLS Outpatient OLIVER Elder RAD [id number] 12:08:00 23:59:59 , [facility] 48 R M0000 12/06/2013 12/06/2013 CLS Outpatient [id number] 10:07:00 23:59:59 69 M0000 12/04/2013 12/04/2013 DIS Emergency [id number] 09:55:00 13:07:00 60 M0000 09/13/2013 10/12/2013 DIS Outpatient [id number] 14:45:00 21:00:00 57 M0000 10/04/2013 10/04/2013 CLS Outpatient [id number] 16:27:00 23:59:59 62 M0000 07/27/2013 07/27/2013 CLS Outpatient [id number] 09:25:00 23:59:59 70 M0000 03/17/2013 03/17/2013 CLS Outpatient [id number] 16:03:00 23:59:59 56 M0000 12/17/2012 02/07/2013 DIS Outpatient [id number] 12:45:00 14:38:00 26 M0000 01/20/2013 01/20/2013 CLS Outpatient [id number] 11:57:00 23:59:59 74 M0000 12/08/2012 12/08/2012 CLS Outpatient [id number] 08:37:00 23:59:59 75 M0000 06/05/2014 Document [id number] 11:48:00 Registration 83 M0000 05/30/2014 Document [id number] 09:28:00 Registration 05 W0004 10/25/2016 10/27/2016 DIS Inpatient Herrera Harrell MD3CE [id number] 09:21:00 13:39:[address] W0004 08/20/2015 08/23/2015 DIS Inpatient Herrera Harrell MD3[place] [id number] 22:15:00 15:01:[address]
[2017-02-09] MEDS: RANITIDINE 150 MG TABLET PO SCH ×2 (21:20→23:24)
[2017-02-09] MEDS: ACETAMINOPHEN 325 MG TABLET PO PRN (21:25)
[2017-02-10 01:32] VITALS: BMI 27.5
--- NOTE | 2017-02-10 09:45 | History & Physical Report ---
<Omaira Burns - Last Filed: 02/10/17 09:49> History of Present Illness Date: 02/10/17 Chief complaint: major neurocognitive disorder, hypokalemia HPI: Isa Mckay is an 86-year-old female who presented to [facility] emergency department on 02/09/17 via EMS after being found lying on her neighbors lawn. As the patient has severe dementia and confusion, the majority of the history is obtained from prior medical records and nursing. Records indicate that during the filter press tender hours on 02/09/17 her had called PD to their home due to safety concerns as Isa was reportedly seeing people and had a broomstick. It was reported that EMS did not assess Isa at that time. Isa later left her house with her dog because she "had to get out of there" referring to her house. She was found by her neighbor laying on the grass and reported that she had fallen. She had a blanket and her dog with her. She was transported to [facility] emergency room for further evaluation. While in the ED, she complained of right shoulder pain. X-ray was obtained and revealed slightly displaced fracture of the greater tuberosity of the humeral head and she was placed in a sling. She denied any other injury, no head injury or loss of consciousness. Labs were obtained and were relatively unremarkable. Records indicate that she had significant flight of ideas when talking with nursing and initially reported that she had been kidnapped. It was noted that she had been seen in the [facility] emergency room 3 times since 02/02/17 due to concerns of acute psychosis and inability to recognize her , often believing there was a stranger in her home. Due to lack of DPOA and inability to sign herself in, she was denied admission to generations unit. Notes indicate that she lives at home with her and son and has been having increased problems with psychosis over the past few weeks. Due to her acute psychosis, she was transported to [facility] for evaluation to be admitted to generations. She was directed through the ED at [facility] due to hypertensive urgency and was noted to have a blood pressure with systolic pressure >200 upon arrival to [facility] ED. She was given Dilaudid for pain control as she had not received any pain control prior to arrival for her acute humeral fracture. She was then accepted for admission to generations unit for further psychiatric evaluation and treatment. The hospitalist service was consulted for medical management. She has a history of hypertension with recent hypertensive urgency, hypokalemia which was present on admission, acute humeral head fracture and GERD. Her PCP is Dr. Adamson. Review of Systems ROS unobtainable: due to mental status (dementia) All systems PM: 10-point ROS was reviewed, no additional remarkable complaints except - Constitutional Constitutional: Absent: fever(s), headache(s), weakness - EENMT Eyes: Absent: change in vision, photophobia Ears: Absent: ear pain Balance: Absent: falling to one side Nose: Absent: nosebleeds Mouth/Throat: Absent: sore throat, drooling, dry mouth - Cardiovascular Cardiovascular: Absent: chest pain, palpitations, syncope, dyspnea on exertion, orthopnea Vascular: Absent: pedal edema, phlebitis - Respiratory Respiratory: Absent: cough, dyspnea, dyspnea on exertion - Gastrointestinal Gastrointestinal: Absent: abdominal pain, diarrhea, nausea, vomiting - Genitourinary Genitourinary: Absent: dysuria, flank pain, hematuria - Musculoskeletal Musculoskeletal: Present: limited range of motion (right arm/shoulder). Absent : back pain, deformity, neck pain - Integumentary/Breasts Integumentary: Absent: rash, jaundice - Neurological Neurological: Present: confusion. Absent: convulsions, dizziness - Psychiatric Psychiatric: Present: anxiety, behavioral changes, difficulty concentrating, hallucinations, paranoia - Endocrine Endocrine: Absent: flushing, palpitations - Hematologic/Lymphatic Hematologic/Lymphatic: Absent: lymphadenopathy - Allergic/Immunologic Allergic/Immunologic: Absent: itchy eyes PFSH Patient Stated Medical History Hypertension. GERD. Macular degeneration. History of cataracts with removal. Right humeral head fracture - acute (02/09/17). 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 Hypercholesterolemia. Surgical History: Hysterectomy. Cholecystomy. Appendectomy. Cataract removal. Family History Updates: Unable to obtain due to patient's dementia. - Social History Smoking status: Former smoker Substance use type: does not use Alcohol intake frequency: does not drink Housing: house Household members: spouse, children (son) Current occupational status: retired Does patient use chewing tobacco?: No Current residence: Apartment/Private Home Social history: Past medical history limited due to patient's dementia and confusion. PCP - Dr. Adamson. Medications Home Medications Medication Instructions Recorded Confirmed Type Ascorbic Acid/Ascorbate Sodium 500 mg PO DAILY 02/09/17 02/09/17 History [Vitamin C 500 mg Wafer] Aspirin Chewable [ASA] 81 mg PO DAILY 02/09/17 02/09/17 History Atorvastatin [Lipitor] 10 mg PO HS 02/09/17 02/09/17 History Calcium 600 + D [Caltrate + D] 1 tab PO DAILY 02/09/17 02/09/17 History Enalapril [Vasotec] 2.5 mg PO DAILY 02/09/17 02/09/17 History Enalaprilat [Vasotec] 1.25 mg IVP O 02/09/17 02/09/17 History Furosemide [Lasix] 20 mg PO DAILY 02/09/17 02/09/17 History Haloperidol Inj [Haldol] 1.25 mg IVP O 02/09/17 02/09/17 History LORazepam [Ativan] 0.5 mg PO Q6H PRN 02/09/17 02/09/17 History Labetalol [Trandate] 20 mg IV O 02/09/17 02/09/17 History Memantine HCl [Namenda Xr] 28 mg PO DAILY 02/09/17 02/09/17 History Metoprolol Tartrate [Lopressor] 12.5 mg PO BIDWM 02/09/17 02/09/17 History Multivitamin [Multivitamins] 1 cap PO DAILY 02/09/17 02/09/17 History Nitroglycerin Patch [Nitro-Dur 0.6 1 patch TD DAILY 02/09/17 02/09/17 History mg/Hr] OLANZapine [Zyprexa] 2.5 mg PO DAILY 02/09/17 02/09/17 History Ranitidine [Zantac] 150 mg PO BID 02/09/17 02/09/17 History Thiamine [Vitamin B-1] 100 mg PO DAILY 02/09/17 02/09/17 History dilTIAZem HCl [Cartia Xt] 180 mg PO DAILY 02/09/17 02/09/17 History Allergies Allergy/AdvReac Type Severity Reaction Status Date / Time Penicillins Allergy Verified 02/09/17 18:45 Sulfa (Sulfonamide Allergy Verified 02/09/17 18:45 Antibiotics) Exam Vital Signs: Temperature 98.8 F 02/09/17 19:55 Pulse Rate 66 02/09/17 19:55 Respiratory Rate 16 02/09/17 19:55 Blood Pressure 158/86 H 02/09/17 19:55 Pulse Oximetry 96 02/09/17 19:55 Height/Weight/BMI: Height 5 ft 5 in Weight 165 lb 5.547 oz Body Mass Index 27.5 - Constitutional Present: no acute distress, well nourished, well developed, cooperative Comments: initially sleeping on exam, and arouses easily with soft touch and voice stimuli. - Routine HEENT Exam Head: Present: normocephalic, atraumatic. Absent: abrasion, laceration, hematoma Eye: Present: PERRL. Absent: conjunctival icterus ENT: Present: mucous membranes dry - Routine Neck Exam Present: supple, full ROM, trachea midline. Absent: tenderness - Routine Chest/Breast/Axilla Exam Chest wall: Absent: tenderness - Routine Respiratory Exam Present: CTA bilaterally. Absent: rhonchi, stridor, wheezes, crackles - Routine Cardiovascular Exam Present: RRR, S1, S2 - Routine Abdominal Exam Present: soft, normoactive bowel sounds, non tender - Routine Extremities Exam Present: pulses intact Comments: right arm in sling; N/V intact. - Routine Back/Spine/Pelvis Exam Back/Spine: Absent: vertebral tenderness - Routine Skin Exam Present: dry, warm. Absent: jaundice Comments: afebrile. - Routine Neurological Exam Present: alert, normal speech. Absent: facial asymmetry - Routine Psychiatric Exam Present: cooperative Results - Labs CBC & Chem 7: 02/10/17 06:57 02/10/17 06:57 Assessment and Plan (1) Humeral head fracture Current visit: Yes Status: Acute (2) Dementia with psychosis Current visit: Yes Status: Acute Assessment and Plan: Assessment Major neurocognitive disorder with acute psychosis. Hypokalemia, acute, present on admission. Anemia, normocytic, normochromic, unspecified, present on admission. 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 Hypertension, uncontrolled, chronic. GERD, chronic. Hypercholesterolemia, chronic. Plan - 02/10/07: [place]. Agree with admission to generations unit for further psychiatric evaluation and treatment. Provide safe and supportive environment. Fall prior to admission resulting in right slightly displaced fracture of greater tuberosity of humeral head. Sling placed prior to admission. Will consult Dr. Marcus for orthopedic evaluation and treatment recommendations. Ice to area as needed. [place] 5mg Q6 hours as needed for pain control. Maintain sling. History of hypertension with urgency noted prior to admission. It is unclear if patient has been taking her home medications regularly. Will continue home medications (cardizem, enalapril, lasix and metoprolol) and monitor blood pressure closely. Will adjust medications as needed as trends are revealed. Hypokalemia noted on admission at 3.2. Will give 40 mEq KCl po now and recheck BMP in AM. Given history of uncontrolled hypertension, will change diet to reduced fat, low sodium. Recommend obtaining CXR and CT head as part of admission evaluation especially given recent fall. Medical records indicate atorvastatin as home medication. LFT within normal range. Will restart at home dose of 10mg daily. Upon discharge, patient's care will be returned to her PCP, Dr. Adamson. GI Prophylaxis: Rantidine Resuscitation Status: Full Code - Time spent with patient Time with patient PN: 50 minutes Hospital Course Summary Disclaimer: The visit summary below is not to be considered part of the above Progress Note. Hospital Course: Assessment Major neurocognitive disorder with acute psychosis. Hypokalemia, acute, present on admission. Anemia, normocytic, normochromic, unspecified, present on admission. 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 Hypertension, uncontrolled, chronic. GERD, chronic. Hypercholesterolemia, chronic. Plan - 02/10/07: [place]. Agree with admission to generations unit for further psychiatric evaluation and treatment. Provide safe and supportive environment. Fall prior to admission resulting in right slightly displaced fracture of greater tuberosity of humeral head. Sling placed prior to admission. Will consult Dr. Marcus for orthopedic evaluation and treatment recommendations. Ice to area as needed. [place] 5mg Q6 hours as needed for pain control. Maintain sling. History of hypertension with urgency noted prior to admission. It is unclear if patient has been taking her home medications regularly. Will continue home medications (cardizem, enalapril, lasix and metoprolol) and monitor blood pressure closely. Will adjust medications as needed as trends are revealed. Hypokalemia noted on admission at 3.2. Will give 40 mEq KCl po now and recheck BMP in AM. Given history of uncontrolled hypertension, will change diet to reduced fat, low sodium. Recommend obtaining CXR and CT head as part of admission evaluation especially given recent fall. Medical records indicate atorvastatin as home medication. LFT within normal range. Will restart at home dose of 10mg daily. Upon discharge, patient's care will be returned to her PCP, Dr. Adamson. <Floresita Baker - Last Filed: 02/10/17 21:10> History of Present Illness Date: 02/10/17 Exam Vital Signs: Temperature 96.5 F L 02/10/17 16:00 Pulse Rate 54 L 02/10/17 16:00 Respiratory Rate 16 02/10/17 20:38 Blood Pressure 171/68 H 02/10/17 16:00 Pulse Oximetry 97 02/10/17 20:38 Height/Weight/BMI: Height 1.65 m Weight 75 kg Body Mass Index 27.5 Results - Labs CBC & Chem 7: 02/10/17 06:57 02/10/17 06:57 Assessment and Plan (1) Humeral head fracture Current visit: Yes Status: Acute (2) Dementia with psychosis Current visit: Yes Status: Acute Assessment and Plan: I have independently evaluated and examined this patient. I reviewed the chart, the patient's history, and the MUFFLE OPERATOR/PA's documented findings as above. We discussed and formulated the assessment and plan as above with additions as below: Mrs. Mckay describe some discomfort in her right shoulder and was surprised to learn that it was broken. She is maintaining her right arm in a sling to avoid movement. She also describes some discomfort in her ankles attributing it to a fall in the past. She cannot describe the events leading up to the fall but was happy to discuss her dog. She denied dyspnea or chest pain and reports that she was able to get some rest earlier today. Her provided supplemental history prior to leaving as I arrived on the unit earlier today. NAD, cooperative Conjunctiva clear, conjugate gaze, EOMI, facial structure symmetric; superficial abrasion on the bridge of the nose (patient reports that it intermittently present following skin cancer removal in the past), 6-8 mm area of hyperpigmentation right upper lip. Respirations nonlabored, good airflow, breath sounds clear regular rhythm, S1-S2 Without edema bilaterally lower extremities MAEW (RUE limited to assessment of finger movement), sensation intact 4 extremities X-rays right upper extremity reviewed demonstrating impacted humeral fracture. Potassium 3.2, lipids unremarkable, TSH 1.0, B-12 pending. Orthopedic recommendations noted-continue sling/immobilization RUE. Discussed with patient. Tylenol or [place] available for pain. Blood pressure remains moderately elevated-continue to monitor. Hospital Course Summary Disclaimer: The visit summary below is not to be considered part of the above Progress Note.
--- NOTE | 2017-02-10 12:26 | XRay Report ---
Indication: shoulder pain PROCEDURE: XR shoulder RT 2-3 views: Encounter: Initial Comparison: None Findings: There is no acute fracture, dislocation or malalignment identified. Acute appearing fracture of the right humeral head and neck with impaction and posterior rotation. Fracture line extends through the surgical neck but is largely obscured due to the degree of impaction. Impression: Closed posttraumatic impacted fracture of the right humeral head and neck. .
--- NOTE | 2017-02-10 13:00 | Orthopedic Consult Note ---
Orthopedic Consultation HPI - Consultation Info Consult Date: 02/10/17 Attending Physician: Matilde Marcus MD Consult Reason: fracture - History of Present Illness Mrs. Mckay is an 86 year old female who is admitted under the care of the hospital service for dementia with acute psychosis and a right humeral head fracture. The history is taken via review of hospital notes given the patient is unable to provide any. On 02/10/17 she left her house after seeing people and objects. She was found by her neighbor laying in the yard from a presumed fall. She was taken to [facility], diagnosed with a humeral head fracture and arrangements for further psychiatric evaluation and treatment were made with [facility]. The hospital service now has consulted orthopaedics for further evaluation of her shoulder. She is presently immobilized in a sling. Review of Systems ROS unobtainable: due to mental status, due to dementia [facility] Patient Stated Medical History Dementia Yes Macular Degeneration Yes Hypertension Yes Other Reproductive Yes: miscarriage Clinic Medical History Humeral head fracture (Acute Medical) Dementia with psychosis (Acute Medical) Surgical History: Hysterectomy. Cholecystomy. Appendectomy. Cataract removal. - Social History Smoking status: Former smoker Does patient use chewing tobacco?: No Current residence: Apartment/Private Home Medications Home Medications Medication Instructions Recorded Confirmed Type Ascorbic Acid/Ascorbate Sodium 500 mg PO DAILY 02/09/17 02/09/17 History [Vitamin C 500 mg Wafer] Aspirin Chewable [ASA] 81 mg PO DAILY 02/09/17 02/09/17 History Atorvastatin [Lipitor] 10 mg PO HS 02/09/17 02/09/17 History Calcium 600 + D [Caltrate + D] 1 tab PO DAILY 02/09/17 02/09/17 History Enalapril [Vasotec] 2.5 mg PO DAILY 02/09/17 02/09/17 History Enalaprilat [Vasotec] 1.25 mg IVP O 02/09/17 02/09/17 History Furosemide [Lasix] 20 mg PO DAILY 02/09/17 02/09/17 History Haloperidol Inj [Haldol] 1.25 mg IVP O 02/09/17 02/09/17 History LORazepam [Ativan] 0.5 mg PO Q6H PRN 02/09/17 02/09/17 History Labetalol [Trandate] 20 mg IV O 02/09/17 02/09/17 History Memantine HCl [Namenda Xr] 28 mg PO DAILY 02/09/17 02/09/17 History Metoprolol Tartrate [Lopressor] 12.5 mg PO BIDWM 02/09/17 02/09/17 History Multivitamin [Multivitamins] 1 cap PO DAILY 02/09/17 02/09/17 History Nitroglycerin Patch [Nitro-Dur 0.6 1 patch TD DAILY 02/09/17 02/09/17 History mg/Hr] OLANZapine [Zyprexa] 2.5 mg PO DAILY 02/09/17 02/09/17 History Ranitidine [Zantac] 150 mg PO BID 02/09/17 02/09/17 History Thiamine [Vitamin B-1] 100 mg PO DAILY 02/09/17 02/09/17 History dilTIAZem HCl [Cartia Xt] 180 mg PO DAILY 02/09/17 02/09/17 History Allergies Allergy/AdvReac Type Severity Reaction Status Date / Time Penicillins Allergy Verified 02/09/17 18:45 Sulfa (Sulfonamide Allergy Verified 02/09/17 18:45 Antibiotics) Orthopedic Exam Vital signs: Temperature 98.2 F 02/10/17 08:00 Pulse Rate 63 02/10/17 08:00 Respiratory Rate 16 02/10/17 08:00 Blood Pressure 158/68 H 02/10/17 08:00 Pulse Oximetry 94 02/10/17 08:00 - Constitutional General Appearance: Present: alert, disoriented - Respiratory Exam Present: non-labored - Cardiovascular Exam Capillary Refill: < 2-3 Seconds - Extremities Exam Present: pulses intact, normal capillary refill Comments: Right proximal humerus tender to palpation, no open wound, typical swelling present. - Integumentary Exam Present: pink, warm, dry, intact - Lymphatic Lymphatic: Absent: lymphedema - Neurological Exam Present: intact to light touch - Psychiatric Exam Present: other (severe dementia and psychosis) - Labs Result Diagrams: 02/10/17 06:57 02/10/17 06:57 Abnormal lab results 02/10/17 02/10/17 02/10/17 Range/Units 05:41 06:57 06:57 RBC 3.96 L (4.00-5.20) M/MM3 Hgb 11.5 L (12-16) GM/DL Neut % (Auto) 67.0 H (33-66) % Potassium 3.2 L (3.6-5) MEQ/L Carbon Dioxide 32 H (22-30) MEQ/L Glucose 111 H (65-110) MG/DL Albumin 3.4 L (3.5-5.0) G/DL Cholesterol 122 L (132-199) MG/DL LDL Cholesterol, Calc 56.8 L (66-159) Ur Specific [place] 1.010 L (1.015-1.025) Urine Ketones Trace A (NEGATIVE) H & H 02/10/17 Range/Units 06:57 Hgb 11.5 L (12-16) GM/DL Hct 36.1 (36-46) % Impression and Recommendation (1) Humeral head fracture Current visit: Yes Qualifiers: Encounter type: initial encounter Fracture type: closed Laterality: right Qualified Code(s): S42.291A - Other displaced fracture of upper end of right humerus, initial encounter for closed fracture Status: Acute Her fracture is comminuted, impacted, angulated with at least one large portion involving the greater tuberosity. She is a poor surgical candidate. Sling for immobilization. Pain control as per hospital service. Hospital Course Summary Disclaimer: The visit summary below is not to be considered part of the above Progress Note. Hospital Course: Assessment Major neurocognitive disorder with acute psychosis. Hypokalemia, acute, present on admission. Anemia, normocytic, normochromic, unspecified, present on admission. 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 Hypertension, uncontrolled, chronic. GERD, chronic. Hypercholesterolemia, chronic. Plan - 02/10/07: [place]. Agree with admission to [facility] unit for further psychiatric evaluation and treatment. Provide safe and supportive environment. Fall prior to admission resulting in right slightly displaced fracture of greater tuberosity of humeral head. Sling placed prior to admission. Will consult Dr. Marcus for orthopedic evaluation and treatment recommendations. Ice to area as needed. [place] 5mg Q6 hours as needed for pain control. Maintain sling. History of hypertension with urgency noted prior to admission. It is unclear if patient has been taking her home medications regularly. Will continue home medications (cardizem, enalapril, lasix and metoprolol) and monitor blood pressure closely. Will adjust medications as needed as trends are revealed. Hypokalemia noted on admission at 3.2. Will give 40 mEq KCl po now and recheck BMP in AM. Given history of uncontrolled hypertension, will change diet to reduced fat, low sodium. Recommend obtaining CXR and CT head as part of admission evaluation especially given recent fall. Medical records indicate atorvastatin as home medication. LFT within normal range. Will restart at home dose of 10mg daily. Upon discharge, patient's care will be returned to her PCP, Dr. Adamson.
[2017-02-10] MEDS: ASPIRIN 81 MG CHEWABLE TABLET PO SCH (13:06)
[2017-02-10] MEDS: RANITIDINE 150 MG TABLET PO SCH ×2 (13:07→19:55)
[2017-02-10] MEDS: FUROSEMIDE 20 MG TABLET PO SCH (13:07)
[2017-02-10] MEDS: NITROGLYCERIN 0.6 MG/HR PATCH TD SCH (13:19)
[2017-02-10] MEDS: HYDROCODONE/APAP 5mg/325mg TABLET PO PRN ×2 (13:50→20:00)
--- NOTE | 2017-02-10 16:16 | 24 Hour Neuropsychiatic Eval ---
Date of Admission: 02/09/17 19:40 Chief complaint: "I want to cry all the time" History of Present Illness: Patient is an 86-year-old female who was admitted to [facility] on 02/09/17 after being found outside her house overnight with a blanket and her dog. Patient was found to have a humeral fracture for which an orthopedist has been consulted. Family reports increased confusion over the last couple of weeks, agitation, not being able to recognize her , and refusing her meds when he tried to give them to her. She has since been taking pills on her own from a pill service planner set up by . They state patient has also been having VH of birds and people in her home. Patient was given Toradol shortly after admission and through much of today has been sedated. She is confused upon interview and cries very easily, with most questions I ask her. She is oriented to self only. She tells me that she does not feel she is typically depressed but cries throughout interview - not clear whether this is due to pain or some other reason. She denies SI, HI, paranoia and says she has "probably" had AVH but can't give me more detail and begins crying more. Depression: Crying Spells Psychosis: Hallucinations/Illusions Dementia: Memory Impairment [facility] Patient Stated Medical History Dementia Yes Macular Degeneration Yes Hypertension Yes Other Reproductive Yes: miscarriage Clinic Medical History Humeral head fracture (Acute Medical) Dementia with psychosis (Acute Medical) Surgical History: Hysterectomy. Cholecystomy. Appendectomy. Cataract removal. Family History: Unobtainable from patient - Social History Smoking status: Former smoker Substance use type: does not use Housing: house Household members: spouse Does patient use chewing tobacco?: No Current residence: Apartment/Private Home Social history: Strengths: family support, services, good verbal communication Review of Systems All systems: reviewed and no additional remarkable complaints except as stated - Constitutional Constitutional: Present: daytime sleepiness, fatigue - EENMT Ears: Absent: ear pain Balance: Absent: falling to one side Nose: Absent: nosebleeds Mouth/Throat: Absent: sore throat, drooling, dry mouth - Cardiovascular Vascular: Absent: pedal edema, phlebitis - Musculoskeletal Musculoskeletal: Present: other (humeral fracture) - Psychiatric Psychiatric: Present: as per HPI, auditory hallucinations (possible), behavioral changes, hallucinations, paranoia, visual hallucinations Mental Status Exam Vitals: Last Vital Signs Temp 98.2 F 02/10/17 08:00 Pulse 66 02/10/17 14:02 Resp 16 02/10/17 14:02 BP 158/68 H 02/10/17 08:00 Pulse Ox 96 02/10/17 14:02 Height: 1.65 m Weight: 75 kg - Mental Status Exam Muscle Strength/Tone: Weak (Difficult to assess due to injury) Dressing: Casual Grooming: Disheveled Attitude: Cooperative (difficult because she is so tearful through interview) Motor Activity: Retardation Eye Contact: Fair Speech: Slowed Volume: Soft Rhythm: Mumbled Orientation: Disoriented to time, Disoriented to place, Disoriented to situation , Oriented to person Mood: Tearful ("not very bad") Affect: Tearful Rate of Thoughts: Delayed Thought Organization: Confused Associations: Illogical Abstract Reasoning: Impaired, concrete Thought Content: Ruminations, Helplessness, Somatic Concerns (appropriate with injury) Perception/Psychotic: Psychotic Current Hallucinations: Visual, Auditory (suspected as reported by family) Language: Naming Impaired Fund of Knowledge: Other (decreased) Memory: Poor-immediate, Poor-recent Suicidal Ideation: Denies Homicidal Ideation: Denies Insight: Impaired Judgement: Impaired Impulse Control: Poor - Laboratory Result Diagrams: 02/10/17 06:57 02/10/17 06:57 Laboratory Results - last 24 hr 02/10/17 02/10/17 02/10/17 05:41 06:57 06:57 WBC 8.1 RBC 3.96 L Hgb 11.5 L Hct 36.1 MCV 91.2 MCH 29.0 MCHC 31.9 RDW Std Deviation 43.9 Plt Count 215 MPV 10.5 Immature Gran % (Auto) 0.2 Neut % (Auto) 67.0 H Lymph % (Auto) 23.5 [place] % (Auto) 8.4 Eos % (Auto) 0.7 Baso % (Auto) 0.2 Neut # (Auto) 5.5 Lymph # (Auto) 1.9 [place] # (Auto) 0.7 Eos # (Auto) 0.1 Baso # (Auto) 0.0 Abs Immat Gran (auto) 0.02 Turbidity < 20 Sodium 141 Potassium 3.2 L Chloride 101 Carbon Dioxide 32 H Anion Gap 8 BUN 15.0 Creatinine 0.8 GFR Calculation 68 BUN/Creatinine Ratio 19 Glucose 111 H Calculated Osmolality 273 Calcium 8.9 Total Bilirubin 1.20 Icterus Index < 2 AST 23 ALT 33 Alkaline Phosphatase 77 Total Protein 6.5 Albumin 3.4 L Globulin 3.1 Albumin/Globulin Ratio 1.1 Triglycerides 71 Cholesterol 122 L LDL Cholesterol, Calc 56.8 L VLDL Cholesterol 14.2 HDL Cholesterol 51 Cholesterol/HDL Ratio 2.4 TSH 1.00 Specimen Hemolysis 17 Ur Collection Type Urine, clean catch Urine Color Yellow Urine Clarity Clear Urine pH 6.5 Ur Specific [place] 1.010 L Urine Protein Negative Urine Glucose (UA) Negative Urine Ketones Trace A Urine Occult Blood Negative Urine Nitrate Negative Urine Bilirubin Negative Urine Urobilinogen 1.0 Ur Leukocyte Esterase Negative Urinalysis Comment Microscopic not ind. Assessment and Plan (1) Psychosis Qualifiers: Psychosis type: unspecified psychosis type Qualified Code(s): F29 - Unspecified psychosis not due to a substance or known physiological condition Current visit: Yes Status: Acute Major neurocognitive disorder, unspecified - suspected Rule out Lewy Body Dementia (2) Humeral head fracture Qualifiers: Encounter type: initial encounter Fracture type: closed Laterality: right Qualified Code(s): S42.291A - Other displaced fracture of upper end of right humerus, initial encounter for closed fracture Current visit: Yes Status: Acute Evaluate and stabilize. Safety and elopement precautions. Monitor mood and behavior. Obtain further collateral history from family. Review/order following labs: CBC, CMP, TSH, Vitamin B12, folate, UA. Hospitalist consulted as well as orthopedist - hospitalist managing pain associated with injury. Patient is still sedated from pain meds last night - would like to use caution after this clears though pain needs to be treated as well. Patient obviously a danger to herself in current setting at home - will discuss options with DPOA.
[2017-02-10] MEDS: ATORVASTATIN 10 MG TABLET PO SCH (19:55)
[2017-02-10] MEDS: NITROGLYCERIN PATCH REMOVAL TD SCH (22:15)
[2017-02-11] MEDS: ATORVASTATIN 10 MG TABLET PO SCH (00:28)
[2017-02-11] MEDS: RANITIDINE 150 MG TABLET PO SCH ×3 (00:31→20:26)
[2017-02-11] MEDS: HALOPERIDOL 5 MG/ML INJECTION IM PRN (07:44)
--- NOTE | 2017-02-11 09:07 | XRay Report ---
INDICATION: mental status change PROCEDURE: CHEST 2-VIEWS UPRIGHT (PA & LAT) Encounter: Initial COMPARISON: None FINDINGS: The lungs are clear without evidence of focal abnormal airspace opacity. There is no pleural effusion or pneumothorax. The heart size, mediastinal contours and pulmonary vascularity are within normal limits. Degenerative change throughout the spine with anterior bridging osteophytes. Impacted right humeral head fracture. IMPRESSION: No acute cardiopulmonary disease. .
[2017-02-11] MEDS: FUROSEMIDE 20 MG TABLET PO SCH (09:12)
[2017-02-11] MEDS: ASPIRIN 81 MG CHEWABLE TABLET PO SCH (09:12)
[2017-02-11] MEDS: HYDROCODONE/APAP 5mg/325mg TABLET PO PRN ×2 (09:12→20:35)
[2017-02-11] MEDS: NITROGLYCERIN 0.6 MG/HR PATCH TD SCH (09:13)
--- NOTE | 2017-02-11 19:21 | Neuropsych Progress Note ---
[facility] Subjective Date: 02/11/17 - Sujective/Severity of Illness Medications: Acetaminophen (Tylenol) 325 - 650 mg PO Q5H PRN PRN Reason: Discomfort Hydrocodone Bitart/Acetaminophen (Forbes 5/325) 1 tab PO Q4H PRN PRN Reason: Pain Last Admin: 02/11/17 09:12 Dose: 1 tab Aspirin (Asa) 81 mg PO DAILY [facility] Last Admin: 02/11/17 09:12 Dose: 81 mg Atorvastatin Calcium (Lipitor) 10 mg PO HS [facility] Last Admin: 02/11/17 00:28 Dose: Not Given Diltiazem HCl (Cardizem Cd) 180 mg PO DAILY [facility] Last Admin: 02/11/17 09:12 Dose: 180 mg Enalapril Maleate (Vasotec) 2.5 mg PO DAILY [facility] Last Admin: 02/11/17 09:12 Dose: 2.5 mg Furosemide (Lasix) 20 mg PO DAILY [facility] Last Admin: 02/11/17 09:12 Dose: 20 mg Haloperidol (Haldol) 0.5 mg PO Q6H PRN PRN Reason: Extreme agitation Haloperidol Lactate (Haldol) 0.5 mg IM Q6H PRN PRN Reason: Extreme agitation Last Admin: 02/11/17 07:44 Dose: 0.5 mg Lorazepam (Ativan) 0.5 mg PO Q6H PRN PRN Reason: Extreme agitation Lorazepam (Ativan Inj) 0.5 mg IM Q6H PRN PRN Reason: Extreme agitation Last Admin: 02/11/17 07:43 Dose: 0.5 mg Metoprolol Tartrate (Lopressor) 12.5 mg PO BIDWM [facility] Last Admin: 02/11/17 17:16 Dose: Not Given Nitroglycerin (Nitro-Dur 0.6 Mg/Hr) 1 patch TD DAILY [facility] Last Admin: 02/11/17 09:13 Dose: 1 patch Nitroglycerin (Nitro-Dur Patch Removal) 1 removal TD 2100 [facility] Last Admin: 02/10/17 22:15 Dose: 1 removal Ranitidine HCl (Zantac) 150 mg PO BID [facility] Last Admin: 02/11/17 09:12 Dose: 150 mg Subjective: Patient seen and chart reviewed. Case discussed with treatment team. On interview, patient is sleeping in dayroom though has been less sedated today than yesterday per nursing staff. She wakens to speak to me but mumbles so much that I have difficulty understanding much of what she is saying other than that she would like her dentures. She denies any complaints and reports her mood is okay. Nursing staff report patient has refused to eat through today and likely dehydrated as she has not voided. Total sleep last night was not documented but patient was reportedly anxious, paranoid, distressed and VH last night. Attempted to give PO Haldol but refused. VSS. Start Time: 14:00 Stop Time: 14:20 Mental Status Exam Vitals: Last Vital Signs Temp 98.0 F 02/11/17 15:34 Pulse 65 02/11/17 15:34 Resp 20 02/11/17 15:34 BP 164/68 H 02/11/17 15:34 Pulse Ox 94 02/11/17 15:34 Height: 1.65 m Weight: 75 kg - Mental Status Exam Muscle Strength/Tone: Weak (Difficult to assess due to injury) Dressing: Casual Grooming: Disheveled Attitude: Cooperative (intermittent) Motor Activity: Retardation Eye Contact: Fair Speech: Slowed Volume: Soft Rhythm: Mumbled Sensory: Drowsy, Stupor Orientation: Disoriented to time, Disoriented to place, Disoriented to situation , Oriented to person Mood: Neutral Rate of Thoughts: Delayed Thought Organization: Confused Associations: Illogical Abstract Reasoning: Impaired, concrete Thought Content: Helplessness, Somatic Concerns (appropriate with injury) Perception/Psychotic: Psychotic Current Hallucinations: Visual, Auditory (suspected as reported by family) Language: Naming Impaired Fund of Knowledge: Other (decreased) Memory: Poor-immediate, Poor-recent Suicidal Ideation: Denies Homicidal Ideation: Denies Insight: Impaired Judgement: Impaired Impulse Control: Poor - Laboratory Result Diagrams: 02/10/17 06:57 02/11/17 09:02 Laboratory Results - last 24 hr 02/10/17 02/11/17 06:57 09:02 Turbidity < 20 Sodium 143 Potassium 3.5 L Chloride 101 Carbon Dioxide 34 H Anion Gap 8 BUN 13.0 Creatinine 0.9 GFR Calculation 59 BUN/Creatinine Ratio 14 Glucose 110 Calculated Osmolality 276 Calcium 9.2 Icterus Index < 2 Vitamin B12 712 Folate > 20.0 H Specimen Hemolysis < 15 Assessment and Plan (1) Psychosis Qualifiers: Psychosis type: unspecified psychosis type Qualified Code(s): F29 - Unspecified psychosis not due to a substance or known physiological condition Current visit: Yes Status: Acute (2) Humeral head fracture Qualifiers: Encounter type: initial encounter Fracture type: closed Laterality: right Qualified Code(s): S42.291A - Other displaced fracture of upper end of right humerus, initial encounter for closed fracture Current visit: Yes Status: Acute Hospital Course Summary Disclaimer: The visit summary below is not to be considered part of the above Progress Note. Hospital Course: Assessment Major neurocognitive disorder with acute psychosis. Hypokalemia, acute, present on admission. Anemia, normocytic, normochromic, unspecified, present on admission. 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 Hypertension, uncontrolled, chronic. GERD, chronic. Hypercholesterolemia, chronic. Plan - 02/10/07: [place]. Agree with admission to [facility] unit for further psychiatric evaluation and treatment. Provide safe and supportive environment. Fall prior to admission resulting in right slightly displaced fracture of greater tuberosity of humeral head. Sling placed prior to admission. Will consult Dr. Marcus for orthopedic evaluation and treatment recommendations. Ice to area as needed. Forbes 5mg Q6 hours as needed for pain control. Maintain sling. History of hypertension with urgency noted prior to admission. It is unclear if patient has been taking her home medications regularly. Will continue home medications (cardizem, enalapril, lasix and metoprolol) and monitor blood pressure closely. Will adjust medications as needed as trends are revealed. Hypokalemia noted on admission at 3.2. Will give 40 mEq KCl po now and recheck BMP in AM. Given history of uncontrolled hypertension, will change diet to reduced fat, low sodium. Recommend obtaining CXR and CT head as part of admission evaluation especially given recent fall. Medical records indicate atorvastatin as home medication. LFT within normal range. Will restart at home dose of 10mg daily. Upon discharge, patient's care will be returned to her PCP, Dr. Adamson. 02/11/17 Psych: Suspect delirium though cause is not clear. Will order CT of head for the time being. Would of course like to minimize narcotic use but this will be difficult given patient's injury. Will plan to restart Namenda 10mg BID once more stable and holding statin as it can lead to increased agitation.
[2017-02-11] MEDS: NITROGLYCERIN PATCH REMOVAL TD SCH (20:36)
[2017-02-12] MEDS: RANITIDINE 150 MG TABLET PO SCH ×2 (09:25→20:32)
[2017-02-12] MEDS: HYDROCODONE/APAP 5mg/325mg TABLET PO PRN ×2 (09:25→20:33)
[2017-02-12] MEDS: FUROSEMIDE 20 MG TABLET PO SCH (09:31)
[2017-02-12] MEDS: NITROGLYCERIN 0.6 MG/HR PATCH TD SCH (09:33)
--- NOTE | 2017-02-12 17:00 | Neuropsych Progress Note ---
[facility] Subjective Date: 02/12/17 - Sujective/Severity of Illness Medications: Acetaminophen (Tylenol) 325 - 650 mg PO Q5H PRN PRN Reason: Discomfort Hydrocodone Bitart/Acetaminophen ([place] 5/325) 1 tab PO Q4H PRN PRN Reason: Pain Last Admin: 02/12/17 09:25 Dose: 1 tab Diltiazem HCl (Cardizem Cd) 180 mg PO DAILY [facility] Last Admin: 02/12/17 09:31 Dose: 180 mg Enalapril Maleate (Vasotec) 2.5 mg PO DAILY [facility] Last Admin: 02/12/17 09:31 Dose: 2.5 mg Furosemide (Lasix) 20 mg PO DAILY [facility] Last Admin: 02/12/17 09:31 Dose: 20 mg Haloperidol (Haldol) 0.5 mg PO Q6H PRN PRN Reason: Extreme agitation Haloperidol Lactate (Haldol) 0.5 mg IM Q6H PRN PRN Reason: Extreme agitation Last Admin: 02/11/17 07:44 Dose: 0.5 mg Lorazepam (Ativan) 0.5 mg PO Q6H PRN PRN Reason: Extreme agitation Lorazepam (Ativan Inj) 0.5 mg IM Q6H PRN PRN Reason: Extreme agitation Last Admin: 02/11/17 07:43 Dose: 0.5 mg Magnesium Hydroxide (Mom) 30 ml PO DAILY PRN PRN Reason: Constipation Metoprolol Tartrate (Lopressor) 12.5 mg PO BIDWM [facility] Last Admin: 02/12/17 09:31 Dose: 12.5 mg Nitroglycerin (Nitro-Dur 0.6 Mg/Hr) 1 patch TD DAILY [facility] Last Admin: 02/12/17 09:33 Dose: 1 patch Nitroglycerin (Nitro-Dur Patch Removal) 1 removal TD 2100 [facility] Last Admin: 02/11/17 20:36 Dose: 1 removal Polyethylene Glycol (Miralax) 17 gm PO DAILY [facility] Ranitidine HCl (Zantac) 150 mg PO BID [facility] Last Admin: 02/12/17 09:25 Dose: 150 mg Senna/Docusate Sodium (Senna Plus Tablet) 2 tab PO BID [facility] Subjective: Patient seen and chart reviewed. Case discussed with treatment team. Patient is sleeping soundly during rounds but has been less sedated today overall. Nursing staff report patient has been in a good mood and oriented to self and date today. No paranoia, AVH reported. SLUMS was 12/03 last night. She has been adherent with medications. Patient slept 8+ hours overnight. BP elevation likely pain response but has not used pain meds excessively. Patient is eating well. Psychotropic PRNs required in the past 24 hours: none. Start Time: 14:00 Stop Time: 14:20 Mental Status Exam Vitals: Last Vital Signs Temp 98.6 F 02/12/17 08:00 Pulse 90 02/12/17 08:00 Resp 18 02/12/17 08:00 BP 196/94 H 02/12/17 08:00 Pulse Ox 92 02/12/17 08:00 Height: 1.65 m Weight: 75 kg - Mental Status Exam Muscle Strength/Tone: Weak (Difficult to assess due to injury) Dressing: Casual Grooming: Other (Limited) Attitude: Cooperative (intermittent) Motor Activity: Retardation Eye Contact: Fair Speech: Slowed Volume: Soft Rhythm: Mumbled Orientation: Disoriented to place, Disoriented to situation, Oriented to person , Oriented to time Mood: Neutral Rate of Thoughts: Delayed Thought Organization: Other (Reportedly less confused) Associations: Other (Unable to assess today ) Abstract Reasoning: Impaired, concrete Thought Content: Somatic Concerns (appropriate with injury) Perception/Psychotic: Hx psychosis, not current Language: Naming Impaired Fund of Knowledge: Other (decreased) Memory: Poor-immediate, Poor-recent Suicidal Ideation: Denies Homicidal Ideation: Denies Insight: Impaired Judgement: Impaired Impulse Control: Fair - Laboratory Result Diagrams: 02/10/17 06:57 02/11/17 09:02 Assessment and Plan (1) Psychosis Qualifiers: Psychosis type: unspecified psychosis type Qualified Code(s): F29 - Unspecified psychosis not due to a substance or known physiological condition Current visit: Yes Status: Acute (2) Humeral head fracture Qualifiers: Encounter type: initial encounter Fracture type: closed Laterality: right Qualified Code(s): S42.291A - Other displaced fracture of upper end of right humerus, initial encounter for closed fracture Current visit: Yes Status: Acute Hospital Course Summary Disclaimer: The visit summary below is not to be considered part of the above Progress Note. Hospital Course: Assessment Major neurocognitive disorder with acute psychosis. Hypokalemia, acute, present on admission. Anemia, normocytic, normochromic, unspecified, present on admission. 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 Hypertension, uncontrolled, chronic. GERD, chronic. Hypercholesterolemia, chronic. Plan - 02/10/07: [place]. Agree with admission to [facility] unit for further psychiatric evaluation and treatment. Provide safe and supportive environment. Fall prior to admission resulting in right slightly displaced fracture of greater tuberosity of humeral head. Sling placed prior to admission. Will consult Dr. Marcus for orthopedic evaluation and treatment recommendations. Ice to area as needed. [place] 5mg Q6 hours as needed for pain control. Maintain sling. History of hypertension with urgency noted prior to admission. It is unclear if patient has been taking her home medications regularly. Will continue home medications (cardizem, enalapril, lasix and metoprolol) and monitor blood pressure closely. Will adjust medications as needed as trends are revealed. Hypokalemia noted on admission at 3.2. Will give 40 mEq KCl po now and recheck BMP in AM. Given history of uncontrolled hypertension, will change diet to reduced fat, low sodium. Recommend obtaining CXR and CT head as part of admission evaluation especially given recent fall. Medical records indicate atorvastatin as home medication. LFT within normal range. Will restart at home dose of 10mg daily. Upon discharge, patient's care will be returned to her PCP, Dr. Adamson. 02/11/17 Psych: Suspect delirium though cause is not clear. Will order CT of head for the time being. Would of course like to minimize narcotic use but this will be difficult given patient's injury. Will plan to restart Namenda 10mg BID once more stable and holding statin as it can lead to increased agitation. 02/12/17 Psych: CT of head has not yet been completed - will review as soon as complete. Agitation, confusion decreasing - likely because delirium improving. Will continue to monitor and assess whether patient needs meds for agitation ( she has not today). Repeat SLUMS on Thursday.
[2017-02-12] MEDS: SENNA + DOCUSATE TABLET PO SCH (20:32)
[2017-02-12] MEDS: NITROGLYCERIN PATCH REMOVAL TD SCH (20:33)
[2017-02-13] MEDS: POLYETHYL GLYCOL 3350 17gm PACKET PO SCH (09:04)
[2017-02-13] MEDS: NITROGLYCERIN 0.6 MG/HR PATCH TD SCH (09:04)
[2017-02-13] MEDS: RANITIDINE 150 MG TABLET PO SCH ×2 (09:04→20:02)
[2017-02-13] MEDS: FUROSEMIDE 20 MG TABLET PO SCH (09:04)
[2017-02-13] MEDS: SENNA + DOCUSATE TABLET PO SCH ×2 (09:05→20:02)
--- NOTE | 2017-02-13 11:05 | CT Scan Report ---
Indication: mental status changes PROCEDURE: CT head/brain wo con: Encounter: Initial Comparison: None Technique: Axial CT images through the head were performed without contrast. Iterative Reconstruction dose reducing technique was utilized. FINDINGS: Severe metallic artifact from a plate device in the frontal bone severely limits evaluation of the anterior cranial fossa with metallic streak artifact. There is postoperative change in left frontal lobe with encephalomalacia in the superior left frontal lobe and cystic change. Expansion of the anterior horn left lateral ventricle. Bilateral basal ganglia lacunar infarcts. No acute intracranial hemorrhage. No mass effect or midline shift. Scattered low-attenuation periventricular white matter disease consistent with chronic microvascular ischemia in concordance with the patient's age. No acute calvarial fracture. The paranasal sinuses are clear. Trace mastoid effusions. Impression: Limited exam due to significant artifact. No obvious acute intracranial hemorrhage or territorial stroke. .
[2017-02-13] MEDS: LORazepam 0.5 MG TABLET PO PRN (15:29)
--- NOTE | 2017-02-13 16:05 | Progress Note ---
- Date 02/13/17 Subjective: Isa is seen today in follow up for her neurocognitive changes and elevated blood pressure. She is seen while sitting in the dining area, at a table. She denies any complaints including no chest pain, shortness of breath, abdominal pain, nausea, vomiting or dysuria. She is noted to have her sling on her right arm in good position. She denies any auditory or visual hallucination but nursing states that she has been having increased visual hallucination including buffalo and other visions. Her appetite is fair and her bowels are moving. Review of vital signs reveals persistent hypertension despite multiple medications. Current blood pressure is 151/84. She denies pain to her arm. Objective Vital signs: Temperature 97.2 F 02/13/17 08:00 Pulse Rate 89 02/13/17 08:00 Respiratory Rate 16 02/13/17 08:00 Blood Pressure 151/84 H 02/13/17 08:00 Pulse Oximetry 93 02/13/17 08:00 Height/Weight/BMI: Height 5 ft 5 in Weight 165 lb 5.547 oz Body Mass Index 27.5 Comments: Sitting in dining area in no apparent distress. - Constitutional Present: no acute distress, well nourished, well developed, cooperative - Routine HEENT Exam Head: Present: normocephalic, atraumatic Eye: Present: PERRL ENT: Present: mucous membranes moist - Routine Respiratory Exam Present: CTA bilaterally. Absent: stridor, wheezes, crackles - Routine Cardiovascular Exam Present: RRR, S1, S2 - Routine Abdominal Exam Present: soft, normoactive bowel sounds, non distended, non tender - Routine Extremities Exam Present: no edema, pulses intact Comments: right arm in sling in good position; N/V intact bilaterally with 2+ radial pulses bilaterally and brisk cap refill. - Routine Back/Spine/Pelvis Exam Back/Spine: Present: full ROM. Absent: vertebral tenderness - Routine Musculoskeletal Exam Musculoskeletal: Present: no clubbing or cyanosis, moving extremities well - Routine Skin Exam Present: intact, dry, warm. Absent: jaundice - Routine Neurological Exam Present: alert, hearing grossly intact, normal speech - Routine Lymphatic Exam Lymphatic: Absent: lymphedema - Routine Psychiatric Exam Present: visual hallucinations, cooperative Results - Labs CBC & Chem 7: 02/10/17 06:57 02/13/17 06:50 Assessment and Plan (1) Dementia with psychosis Current visit: Yes Status: Acute (2) Humeral head fracture Current visit: Yes Status: Acute Assessment and Plan: Plan - 02/13/17: Overall, Isa appears to be doing well medically. Continue psychiatric care per Dr. Pena and team. She continues to have visual hallucinations. Continue to provide safe and supportive environment. Blood pressure noted to be consistently elevated. Review of medications reveals enalapril at lowest dose of 2.5. Will increase to 5mg daily and continue to monitor blood pressure closely. BMP today was unremarkable with SCr at 0.7. Monitor renal function periodically throughout admission. Continue to encourage oral intake. Patient was seen and evaluated by Dr. Marcus who did not feel the patient was a good candidate for surgical correction of her right humerus fracture and recommended conservative care with sling. Appreciate his time and expertise. Will recheck BMP and CBC on 02/16 to monitor blood counts, electrolytes and renal function. Hospital Course Summary Disclaimer: The visit summary below is not to be considered part of the above Progress Note. Hospital Course: Assessment Major neurocognitive disorder with acute psychosis. Hypokalemia, acute, present on admission. Anemia, normocytic, normochromic, unspecified, present on admission. 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 Hypertension, uncontrolled, chronic. GERD, chronic. Hypercholesterolemia, chronic. Plan - 02/10/07: [place]. Agree with admission to [facility] unit for further psychiatric evaluation and treatment. Provide safe and supportive environment. Fall prior to admission resulting in right slightly displaced fracture of greater tuberosity of humeral head. Sling placed prior to admission. Will consult Dr. Marcus for orthopedic evaluation and treatment recommendations. Ice to area as needed. [place] 5mg Q6 hours as needed for pain control. Maintain sling. History of hypertension with urgency noted prior to admission. It is unclear if patient has been taking her home medications regularly. Will continue home medications (cardizem, enalapril, lasix and metoprolol) and monitor blood pressure closely. Will adjust medications as needed as trends are revealed. Hypokalemia noted on admission at 3.2. Will give 40 mEq KCl po now and recheck BMP in AM. Given history of uncontrolled hypertension, will change diet to reduced fat, low sodium. Recommend obtaining CXR and CT head as part of admission evaluation especially given recent fall. Medical records indicate atorvastatin as home medication. LFT within normal range. Will restart at home dose of 10mg daily. Upon discharge, patient's care will be returned to her PCP, Dr. Adamson. 02/11/17 Psych: Suspect delirium though cause is not clear. Will order CT of head for the time being. Would of course like to minimize narcotic use but this will be difficult given patient's injury. Will plan to restart Namenda 10mg BID once more stable and holding statin as it can lead to increased agitation. 02/12/17 Psych: CT of head has not yet been completed - will review as soon as complete. Agitation, confusion decreasing - likely because delirium improving. Will continue to monitor and assess whether patient needs meds for agitation ( she has not today). Repeat [facility]UMS on Thursday. Plan - 02/13/17: Overall, Isa appears to be doing well medically. Continue psychiatric care per Dr. Pena and team. She continues to have visual hallucinations. Continue to provide safe and supportive environment. Blood pressure noted to be consistently elevated. Review of medications reveals enalapril at lowest dose of 2.5. Will increase to 5mg daily and continue to monitor blood pressure closely. BMP today was unremarkable with SCr at 0.7. Monitor renal function periodically throughout admission. Continue to encourage oral intake. Patient was seen and evaluated by Dr. Marcus who did not feel the patient was a good candidate for surgical correction of her right humerus fracture and recommended conservative care with sling. Appreciate his time and expertise. Will recheck BMP and CBC on 02/16 to monitor blood counts, electrolytes and renal function.
--- NOTE | 2017-02-13 17:52 | Neuropsych Progress Note ---
[facility] Subjective Date: 02/13/17 - Sujective/Severity of Illness Medications: Acetaminophen (Tylenol) 325 - 650 mg PO Q5H PRN PRN Reason: Discomfort Hydrocodone Bitart/Acetaminophen ([place] 5/325) 1 tab PO Q4H PRN PRN Reason: Pain Last Admin: 02/12/17 20:33 Dose: 1 tab Diltiazem HCl (Cardizem Cd) 180 mg PO DAILY [facility] Last Admin: 02/13/17 09:04 Dose: 180 mg Enalapril Maleate (Vasotec) 5 mg PO DAILY [facility] Furosemide (Lasix) 20 mg PO DAILY [facility] Last Admin: 02/13/17 09:04 Dose: 20 mg Haloperidol (Haldol) 0.5 mg PO Q6H PRN PRN Reason: Extreme agitation Haloperidol Lactate (Haldol) 0.5 mg IM Q6H PRN PRN Reason: Extreme agitation Last Admin: 02/11/17 07:44 Dose: 0.5 mg Lorazepam (Ativan) 0.5 mg PO Q6H PRN PRN Reason: Extreme agitation Last Admin: 02/13/17 15:29 Dose: 0.5 mg Lorazepam (Ativan Inj) 0.5 mg IM Q6H PRN PRN Reason: Extreme agitation Last Admin: 02/11/17 07:43 Dose: 0.5 mg Magnesium Hydroxide (Mom) 30 ml PO DAILY PRN PRN Reason: Constipation Metoprolol Tartrate (Lopressor) 12.5 mg PO BIDWM [facility] Last Admin: 02/13/17 17:18 Dose: 12.5 mg Nitroglycerin (Nitro-Dur 0.6 Mg/Hr) 1 patch TD DAILY [facility] Last Admin: 02/13/17 09:04 Dose: 1 patch Nitroglycerin (Nitro-Dur Patch Removal) 1 removal TD 2100 [facility] Last Admin: 02/12/17 20:33 Dose: 1 removal Polyethylene Glycol (Miralax) 17 gm PO DAILY [facility] Last Admin: 02/13/17 09:04 Dose: 17 gm Ranitidine HCl (Zantac) 150 mg PO BID [facility] Last Admin: 02/13/17 09:04 Dose: 150 mg Senna/Docusate Sodium (Senna Plus Tablet) 2 tab PO BID [facility] Last Admin: 02/13/17 09:05 Dose: 2 tab Subjective: Patient seen and chart reviewed. Case discussed with treatment team. On interview, patient is pleasant and cooperative. She states she would like to get out of bed and denies pain but feels the pain is uncomfortable. Patient denies any SI, HI or AVH. Patient denies any adverse side effects related to psychotropic medications. Nursing staff report patient's cognition seems to fluctuate. Asked to ensure completion of CT of head today. Patient slept 4.5 hours overnight. BP elevated - likely partially due to pain. Appetite limited. Psychotropic PRNs required in the past 24 hours: none. Start Time: 08:00 Stop Time: 08:20 Mental Status Exam Vitals: Last Vital Signs Temp 98.3 F 02/13/17 16:00 Pulse 73 02/13/17 16:00 Resp 16 02/13/17 16:00 BP 165/71 H 02/13/17 16:00 Pulse Ox 96 02/13/17 16:00 Height: 1.65 m Weight: 75 kg - Mental Status Exam Muscle Strength/Tone: Weak (Difficult to assess due to injury) Dressing: Casual Grooming: Other (Limited) Attitude: Cooperative (intermittent) Motor Activity: Retardation Eye Contact: Fair Speech: Slowed Volume: Soft Rhythm: Mumbled Orientation: Disoriented to place, Disoriented to situation, Oriented to person , Oriented to time Mood: Neutral (restricted affect but just woke up) Rate of Thoughts: Delayed Thought Organization: Other (varying confusion) Associations: Other (Unable to assess today ) Abstract Reasoning: Impaired, concrete Thought Content: Somatic Concerns (appropriate with injury) Perception/Psychotic: Hx psychosis, not current Current Hallucinations: Visual, Auditory (suspected as reported by family) Language: Naming Impaired Fund of Knowledge: Other (decreased) Memory: Poor-immediate, Poor-recent Suicidal Ideation: Denies Homicidal Ideation: Denies Insight: Impaired Judgement: Impaired Impulse Control: Fair - Laboratory Result Diagrams: 02/10/17 06:57 02/13/17 06:50 Laboratory Results - last 24 hr 02/10/17 02/13/17 06:57 06:50 Turbidity < 20 Sodium 142 Potassium 4.0 Chloride 101 Carbon Dioxide 33 H Anion Gap 8 BUN 14.0 Creatinine 0.7 D GFR Calculation 79 BUN/Creatinine Ratio 20 Glucose 126 H Calculated Osmolality 276 Calcium 8.9 Icterus Index < 2 Specimen Hemolysis < 15 RPR Non-reactive Assessment and Plan (1) Psychosis Qualifiers: Psychosis type: unspecified psychosis type Qualified Code(s): F29 - Unspecified psychosis not due to a substance or known physiological condition Current visit: Yes Status: Acute (2) Humeral head fracture Qualifiers: Encounter type: initial encounter Fracture type: closed Laterality: right Qualified Code(s): S42.291A - Other displaced fracture of upper end of right humerus, initial encounter for closed fracture Current visit: Yes Status: Acute Hospital Course Summary Disclaimer: The visit summary below is not to be considered part of the above Progress Note. Hospital Course: Assessment Major neurocognitive disorder with acute psychosis. Hypokalemia, acute, present on admission. Anemia, normocytic, normochromic, unspecified, present on admission. 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 Hypertension, uncontrolled, chronic. GERD, chronic. Hypercholesterolemia, chronic. Plan - 02/10/07: [place]. Agree with admission to [facility] for further psychiatric evaluation and treatment. Provide safe and supportive environment. Fall prior to admission resulting in right slightly displaced fracture of greater tuberosity of humeral head. Sling placed prior to admission. Will consult Dr. Marcus for orthopedic evaluation and treatment recommendations. Ice to area as needed. [place] 5mg Q6 hours as needed for pain control. Maintain sling. History of hypertension with urgency noted prior to admission. It is unclear if patient has been taking her home medications regularly. Will continue home medications (cardizem, enalapril, lasix and metoprolol) and monitor blood pressure closely. Will adjust medications as needed as trends are revealed. Hypokalemia noted on admission at 3.2. Will give 40 mEq KCl po now and recheck BMP in AM. Given history of uncontrolled hypertension, will change diet to reduced fat, low sodium. Recommend obtaining CXR and CT head as part of admission evaluation especially given recent fall. Medical records indicate atorvastatin as home medication. LFT within normal range. Will restart at home dose of 10mg daily. Upon discharge, patient's care will be returned to her PCP, Dr. Adamson. 02/11/17 Psych: Suspect delirium though cause is not clear. Will order CT of head for the time being. Would of course like to minimize narcotic use but this will be difficult given patient's injury. Will plan to restart Namenda 10mg BID once more stable and holding statin as it can lead to increased agitation. 11/09/17 Psych: CT of head has not yet been completed - will review as soon as complete. Agitation, confusion decreasing - likely because delirium improving. Will continue to monitor and assess whether patient needs meds for agitation ( she has not today). Repeat [facility] on Thursday. Plan - 02/13/17: Overall, Isa appears to be doing well medically. Continue psychiatric care per Dr. Pena and team. She continues to have visual hallucinations. Continue to provide safe and supportive environment. Blood pressure noted to be consistently elevated. Review of medications reveals enalapril at lowest dose of 2.5. Will increase to 5mg daily and continue to monitor blood pressure closely. BMP today was unremarkable with SCr at 0.7. Monitor renal function periodically throughout admission. Continue to encourage oral intake. Patient was seen and evaluated by Dr. Marcus who did not feel the patient was a good candidate for surgical correction of her right humerus fracture and recommended conservative care with sling. Appreciate his time and expertise. Will recheck BMP and CBC on 02/16 to monitor blood counts, electrolytes and renal function. 02/13/17 Psych: Sensorium, cognition varies - likely due to delirium. Requested that CT be completed today and once complete can make further treatment decisions. If continues to have agitation or hallucinations as reported at home , plan to start antipsychotic.
[2017-02-13] MEDS: NITROGLYCERIN PATCH REMOVAL TD SCH (20:02)
[2017-02-14] MEDS: HALOPERIDOL 0.5 MG TABLET PO PRN (01:01)
[2017-02-14] MEDS: NITROGLYCERIN 0.6 MG/HR PATCH TD SCH (10:40)
[2017-02-14] MEDS: FUROSEMIDE 20 MG TABLET PO SCH (10:42)
[2017-02-14] MEDS: SENNA + DOCUSATE TABLET PO SCH ×2 (10:42→20:01)
[2017-02-14] MEDS: RANITIDINE 150 MG TABLET PO SCH ×2 (10:44→20:01)
[2017-02-14] MEDS: POLYETHYL GLYCOL 3350 17gm PACKET PO SCH (10:44)
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
[2017-02-14] MEDS: ACETAMINOPHEN 325 MG TABLET PO PRN (16:53)
[2017-02-14] MEDS: NITROGLYCERIN PATCH REMOVAL TD SCH (20:06)
[2017-02-15] MEDS: ACETAMINOPHEN 325 MG TABLET PO PRN ×3 (05:47→19:56)
--- NOTE | 2017-02-15 11:11 | Neuropsych Progress Note ---
[facility] Subjective Date: 02/15/17 - Sujective/Severity of Illness Medications: Acetaminophen (Tylenol) 325 - 650 mg PO Q5H PRN PRN Reason: Discomfort Last Admin: 02/15/17 05:47 Dose: 650 mg Hydrocodone Bitart/Acetaminophen (Sharon 5/325) 1 tab PO Q4H PRN PRN Reason: Pain Last Admin: 02/12/17 20:33 Dose: 1 tab Diltiazem HCl (Cardizem Cd) 180 mg PO DAILY [facility] Last Admin: 02/14/17 10:40 Dose: 180 mg Enalapril Maleate (Vasotec) 5 mg PO DAILY [facility] Last Admin: 02/14/17 10:41 Dose: 5 mg Furosemide (Lasix) 20 mg PO DAILY [facility] Last Admin: 02/14/17 10:42 Dose: 20 mg Haloperidol (Haldol) 0.5 mg PO Q6H PRN PRN Reason: Extreme agitation Last Admin: 02/14/17 01:01 Dose: 0.5 mg Haloperidol Lactate (Haldol) 0.5 mg IM Q6H PRN PRN Reason: Extreme agitation Last Admin: 02/11/17 07:44 Dose: 0.5 mg Lorazepam (Ativan) 0.5 mg PO Q6H PRN PRN Reason: Extreme agitation Last Admin: 02/13/17 15:29 Dose: 0.5 mg Lorazepam (Ativan Inj) 0.5 mg IM Q6H PRN PRN Reason: Extreme agitation Last Admin: 02/11/17 07:43 Dose: 0.5 mg Magnesium Hydroxide (Mom) 30 ml PO DAILY PRN PRN Reason: Constipation Metoprolol Tartrate (Lopressor) 12.5 mg PO BIDWM [facility] Last Admin: 02/14/17 16:54 Dose: 12.5 mg Nitroglycerin (Nitro-Dur 0.6 Mg/Hr) 1 patch TD DAILY [facility] Last Admin: 02/14/17 10:40 Dose: 1 patch Nitroglycerin (Nitro-Dur Patch Removal) 1 removal TD 2100 [facility] Last Admin: 02/14/17 20:06 Dose: 1 removal Polyethylene Glycol (Miralax) 17 gm PO DAILY [facility] Last Admin: 02/14/17 10:44 Dose: Not Given Ranitidine HCl (Zantac) 150 mg PO BID [facility] Last Admin: 02/14/17 20:01 Dose: 150 mg Senna/Docusate Sodium (Senna Plus Tablet) 2 tab PO BID [facility] Last Admin: 02/14/17 20:01 Dose: 2 tab Subjective: Pt seen and chart examined. Nursing reports pt is a little better today. She had visual hallucinations last night of birds and butterflies but they were pleasant to her and did not cause distress. No behaviors noted. On face to face the pt is resting quitely in bed. She reports she is doing well and voices no concerns. Tolerating meds Start Time: 11:00 Stop Time: 11:15 Mental Status Exam Vitals: Last Vital Signs Temp 97.6 F 02/14/17 21:24 Pulse 70 02/14/17 21:24 Resp 18 02/14/17 21:24 BP 142/72 H 02/14/17 21:24 Pulse Ox 95 02/14/17 21:24 Height: 1.65 m Weight: 75 kg - Mental Status Exam Muscle Strength/Tone: Weak (Difficult to assess due to injury) Dressing: Casual Grooming: Other (Limited) Attitude: Cooperative (intermittent) Motor Activity: Retardation Eye Contact: Fair Speech: Slowed Volume: Soft Rhythm: Mumbled Orientation: Disoriented to place, Disoriented to situation, Oriented to person , Oriented to time Mood: Neutral (restricted affect but just woke up) Rate of Thoughts: Delayed Thought Organization: Other (varying confusion) Associations: Other (Unable to assess today ) Abstract Reasoning: Impaired, concrete Thought Content: Somatic Concerns (appropriate with injury) Perception/Psychotic: Hx psychosis, not current Current Hallucinations: Visual, Auditory (suspected as reported by family) Language: Naming Impaired Fund of Knowledge: Other (decreased) Memory: Poor-immediate, Poor-recent Suicidal Ideation: Denies Homicidal Ideation: Denies Insight: Impaired Judgement: Impaired Impulse Control: Fair - Laboratory Result Diagrams: 02/10/17 06:57 02/13/17 06:50 Assessment and Plan (1) Humeral head fracture Qualifiers: Encounter type: initial encounter Fracture type: closed Laterality: right Qualified Code(s): S42.291A - Other displaced fracture of upper end of right humerus, initial encounter for closed fracture Current visit: Yes Status: Acute (2) Major neurocognitive disorder Current visit: Yes Status: Acute (3) Delirium due to another medical condition Current visit: Yes Status: Acute Hospital Course Summary Disclaimer: The visit summary below is not to be considered part of the above Progress Note. Hospital Course: Assessment Major neurocognitive disorder with acute psychosis. Hypokalemia, acute, present on admission. Anemia, normocytic, normochromic, unspecified, present on admission. 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 Hypertension, uncontrolled, chronic. GERD, chronic. Hypercholesterolemia, chronic. Plan - 02/10/07: [place]. Agree with admission to [facility] unit for further psychiatric evaluation and treatment. Provide safe and supportive environment. Fall prior to admission resulting in right slightly displaced fracture of greater tuberosity of humeral head. Sling placed prior to admission. Will consult Dr. Marcus for orthopedic evaluation and treatment recommendations. Ice to area as needed. Sharon 5mg Q6 hours as needed for pain control. Maintain sling. History of hypertension with urgency noted prior to admission. It is unclear if patient has been taking her home medications regularly. Will continue home medications (cardizem, enalapril, lasix and metoprolol) and monitor blood pressure closely. Will adjust medications as needed as trends are revealed. Hypokalemia noted on admission at 3.2. Will give 40 mEq KCl po now and recheck BMP in AM. Given history of uncontrolled hypertension, will change diet to reduced fat, low sodium. Recommend obtaining CXR and CT head as part of admission evaluation especially given recent fall. Medical records indicate atorvastatin as home medication. LFT within normal range. Will restart at home dose of 10mg daily. Upon discharge, patient's care will be returned to her PCP, Dr. Adamson. 02/11/17 Psych: Suspect delirium though cause is not clear. Will order CT of head for the time being. Would of course like to minimize narcotic use but this will be difficult given patient's injury. Will plan to restart Namenda 10mg BID once more stable and holding statin as it can lead to increased agitation. 02/12/17 Psych: CT of head has not yet been completed - will review as soon as complete. Agitation, confusion decreasing - likely because delirium improving. Will continue to monitor and assess whether patient needs meds for agitation ( she has not today). Repeat SLUMS on Thursday. Plan - 02/13/17: Overall, Isa appears to be doing well medically. Continue psychiatric care per Dr. Pena and team. She continues to have visual hallucinations. Continue to provide safe and supportive environment. Blood pressure noted to be consistently elevated. Review of medications reveals enalapril at lowest dose of 2.5. Will increase to 5mg daily and continue to monitor blood pressure closely. BMP today was unremarkable with SCr at 0.7. Monitor renal function periodically throughout admission. Continue to encourage oral intake. Patient was seen and evaluated by Dr. Marcus who did not feel the patient was a good candidate for surgical correction of her right humerus fracture and recommended conservative care with sling. Appreciate his time and expertise. Will recheck BMP and CBC on 02/16 to monitor blood counts, electrolytes and renal function. 02/13/17 Psych: Sensorium, cognition varies - likely due to delirium. Requested that CT be completed today and once complete can make further treatment decisions. If continues to have agitation or hallucinations as reported at home , plan to start antipsychotic. 02/14/17 14:24 Continues to be confused with visual hallucinations. Willcontact family about starting antipsychotic 02/15/17 11:10 VH improved and no behaviors noted. Continue current care
[2017-02-15] MEDS: FUROSEMIDE 20 MG TABLET PO SCH (11:56)
[2017-02-15] MEDS: NITROGLYCERIN 0.6 MG/HR PATCH TD SCH (11:57)
[2017-02-15] MEDS: RANITIDINE 150 MG TABLET PO SCH ×3 (11:57→22:12)
[2017-02-15] MEDS: SENNA + DOCUSATE TABLET PO SCH ×2 (11:57→22:13)
[2017-02-15] MEDS: POLYETHYL GLYCOL 3350 17gm PACKET PO SCH (11:57)
[2017-02-15] MEDS: NITROGLYCERIN PATCH REMOVAL TD SCH ×2 (19:57→22:12)
[2017-02-15] MEDS: HYDROCODONE/APAP 5mg/325mg TABLET PO PRN (21:31)
[2017-02-15] MEDS: HALOPERIDOL 0.5 MG TABLET PO PRN (21:32)
[2017-02-15] MEDS: HALOPERIDOL 5 MG/ML INJECTION IM PRN (21:43)
[2017-02-16] MEDS: FUROSEMIDE 20 MG TABLET PO SCH (09:49)
[2017-02-16] MEDS: NITROGLYCERIN 0.6 MG/HR PATCH TD SCH (09:50)
[2017-02-16] MEDS: SENNA + DOCUSATE TABLET PO SCH ×2 (09:50→19:40)
[2017-02-16] MEDS: RANITIDINE 150 MG TABLET PO SCH ×2 (09:50→19:40)
[2017-02-16] MEDS: POLYETHYL GLYCOL 3350 17gm PACKET PO SCH (09:50)
[2017-02-16] MEDS: LIDOCAINE 5% PATCH TOP SCH (15:33)
[2017-02-16] MEDS: ACETAMINOPHEN 325 MG TABLET PO PRN (16:55)
--- NOTE | 2017-02-16 19:14 | Neuropsych Progress Note ---
[facility] Subjective Date: 02/16/17 - Sujective/Severity of Illness Medications: Acetaminophen (Tylenol) 325 - 650 mg PO Q5H PRN PRN Reason: Discomfort Last Admin: 02/16/17 16:55 Dose: 650 mg Hydrocodone Bitart/Acetaminophen ([place] 5/325) 1 tab PO Q4H PRN PRN Reason: Pain Last Admin: 02/12/17 20:33 Dose: 1 tab Diltiazem HCl (Cardizem Cd) 180 mg PO DAILY [facility] Last Admin: 02/16/17 09:49 Dose: 180 mg Enalapril Maleate (Vasotec) 5 mg PO DAILY [facility] Last Admin: 02/16/17 09:49 Dose: 5 mg Furosemide (Lasix) 20 mg PO DAILY [facility] Last Admin: 02/16/17 09:49 Dose: 20 mg Haloperidol (Haldol) 0.5 mg PO Q6H PRN PRN Reason: Extreme agitation Last Admin: 02/14/17 01:01 Dose: 0.5 mg Haloperidol Lactate (Haldol) 0.5 mg IM Q6H PRN PRN Reason: Extreme agitation Last Admin: 02/15/17 21:43 Dose: 0.5 mg Lidocaine (Lidoderm) 1 patch TOP DAILY [facility] Last Admin: 02/16/17 15:33 Dose: 1 patch Lidocaine HCl/Dextrose (Lidoderm Patch Removal) 1 removal TOP 2100 [facility] Lorazepam (Ativan) 0.5 mg PO Q6H PRN PRN Reason: Extreme agitation Last Admin: 02/13/17 15:29 Dose: 0.5 mg Lorazepam (Ativan Inj) 0.5 mg IM Q6H PRN PRN Reason: Extreme agitation Last Admin: 02/15/17 21:44 Dose: 0.5 mg Magnesium Hydroxide (Mom) 30 ml PO DAILY PRN PRN Reason: Constipation Metoprolol Tartrate (Lopressor) 12.5 mg PO BIDWM [facility] Last Admin: 02/16/17 17:05 Dose: 12.5 mg Nitroglycerin (Nitro-Dur 0.6 Mg/Hr) 1 patch TD DAILY [facility] Last Admin: 02/16/17 09:50 Dose: 1 patch Nitroglycerin (Nitro-Dur Patch Removal) 1 removal TD 2100 [facility] Last Admin: 02/15/17 22:12 Dose: Not Given Polyethylene Glycol (Miralax) 17 gm PO DAILY [facility] Last Admin: 02/16/17 09:50 Dose: 17 gm Ranitidine HCl (Zantac) 150 mg PO BID [facility] Last Admin: 02/16/17 09:50 Dose: 150 mg Senna/Docusate Sodium (Senna Plus Tablet) 2 tab PO BID [facility] Last Admin: 02/16/17 09:50 Dose: Not Given Subjective: Pt seen and chart examined. Nursing reports pt had a rough night and was paranoid and combative at times. She does well during the day. On face to face the pt is pleasant but confused. She has not had any behaviors today. She reports tolerating her medication well. Denies pain. Spoke with about scheduled Haldol and is agreeable. Start Time: 18:00 Stop Time: 18:15 Mental Status Exam Vitals: Last Vital Signs Temp 98.6 F 02/16/17 16:00 Pulse 72 02/16/17 16:00 Resp 18 02/16/17 16:00 BP 134/67 02/16/17 16:00 Pulse Ox 92 02/16/17 16:00 Height: 1.65 m Weight: 75 kg - Mental Status Exam Muscle Strength/Tone: Weak (Difficult to assess due to injury) Dressing: Casual Grooming: Other (Limited) Attitude: Cooperative (intermittent) Motor Activity: Retardation Eye Contact: Fair Speech: Slowed Volume: Soft Rhythm: Mumbled Orientation: Disoriented to place, Disoriented to situation, Oriented to person , Oriented to time Mood: Neutral (restricted affect but just woke up) Rate of Thoughts: Delayed Thought Organization: Other (varying confusion) Associations: Other (Unable to assess today ) Abstract Reasoning: Impaired, concrete Thought Content: Somatic Concerns (appropriate with injury) Perception/Psychotic: Hx psychosis, not current Current Hallucinations: Visual, Auditory (suspected as reported by family) Language: Naming Impaired Fund of Knowledge: Other (decreased) Memory: Poor-immediate, Poor-recent Suicidal Ideation: Denies Homicidal Ideation: Denies Insight: Impaired Judgement: Impaired Impulse Control: Fair - Laboratory Result Diagrams: 02/16/17 06:51 02/16/17 06:51 Laboratory Results - last 24 hr 02/16/17 02/16/17 06:51 06:51 WBC 7.5 RBC 4.29 Hgb 12.4 Hct 39.3 MCV 91.6 MCH 28.9 MCHC 31.6 RDW Std Deviation 45.2 Plt Count 245 MPV 10.3 Immature Gran % (Auto) 0.1 Neut % (Auto) 55.3 Lymph % (Auto) 34.7 [place] % (Auto) 6.7 Eos % (Auto) 2.8 Baso % (Auto) 0.4 Neut # (Auto) 4.1 Lymph # (Auto) 2.6 [place] # (Auto) 0.5 Eos # (Auto) 0.2 Baso # (Auto) 0.0 Abs Immat Gran (auto) 0.01 Turbidity < 20 Sodium 139 Potassium 3.8 Chloride 99 Carbon Dioxide 32 H Anion Gap 8 BUN 21.0 H Creatinine 0.9 GFR Calculation 59 BUN/Creatinine Ratio 23 Glucose 111 H Calculated Osmolality 272 Calcium 9.1 Icterus Index < 2 Specimen Hemolysis < 15 Assessment and Plan (1) Humeral head fracture Qualifiers: Encounter type: initial encounter Fracture type: closed Laterality: right Qualified Code(s): S42.291A - Other displaced fracture of upper end of right humerus, initial encounter for closed fracture Current visit: Yes Status: Acute (2) Major neurocognitive disorder Current visit: Yes Status: Acute (3) Delirium due to another medical condition Current visit: Yes Status: Acute Hospital Course Summary Disclaimer: The visit summary below is not to be considered part of the above Progress Note. Hospital Course: Assessment Major neurocognitive disorder with acute psychosis. Hypokalemia, acute, present on admission. Anemia, normocytic, normochromic, unspecified, present on admission. 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 Hypertension, uncontrolled, chronic. GERD, chronic. Hypercholesterolemia, chronic. Plan - 02/10/07: [place]. Agree with admission to [facility] unit for further psychiatric evaluation and treatment. Provide safe and supportive environment. Fall prior to admission resulting in right slightly displaced fracture of greater tuberosity of humeral head. Sling placed prior to admission. Will consult Dr. Marcus for orthopedic evaluation and treatment recommendations. Ice to area as needed. Reading 5mg Q6 hours as needed for pain control. Maintain sling. History of hypertension with urgency noted prior to admission. It is unclear if patient has been taking her home medications regularly. Will continue home medications (cardizem, enalapril, lasix and metoprolol) and monitor blood pressure closely. Will adjust medications as needed as trends are revealed. Hypokalemia noted on admission at 3.2. Will give 40 mEq KCl po now and recheck BMP in AM. Given history of uncontrolled hypertension, will change diet to reduced fat, low sodium. Recommend obtaining CXR and CT head as part of admission evaluation especially given recent fall. Medical records indicate atorvastatin as home medication. LFT within normal range. Will restart at home dose of 10mg daily. Upon discharge, patient's care will be returned to her PCP, Dr. Adamson. 02/11/17 Psych: Suspect delirium though cause is not clear. Will order CT of head for the time being. Would of course like to minimize narcotic use but this will be difficult given patient's injury. Will plan to restart Namenda 10mg BID once more stable and holding statin as it can lead to increased agitation. 02/12/17 Psych: CT of head has not yet been completed - will review as soon as complete. Agitation, confusion decreasing - likely because delirium improving. Will continue to monitor and assess whether patient needs meds for agitation ( she has not today). Repeat SLUMS on Thursday. Plan - 02/13/17: Overall, Isa appears to be doing well medically. Continue psychiatric care per Dr. Pena and team. She continues to have visual hallucinations. Continue to provide safe and supportive environment. Blood pressure noted to be consistently elevated. Review of medications reveals enalapril at lowest dose of 2.5. Will increase to 5mg daily and continue to monitor blood pressure closely. BMP today was unremarkable with SCr at 0.7. Monitor renal function periodically throughout admission. Continue to encourage oral intake. Patient was seen and evaluated by Dr. Marcus who did not feel the patient was a good candidate for surgical correction of her right humerus fracture and recommended conservative care with sling. Appreciate his time and expertise. Will recheck BMP and CBC on 02/16 to monitor blood counts, electrolytes and renal function. 02/13/17 Psych: Sensorium, cognition varies - likely due to delirium. Requested that CT be completed today and once complete can make further treatment decisions. If continues to have agitation or hallucinations as reported at home , plan to start antipsychotic. 02/14/17 14:24 Continues to be confused with visual hallucinations. Willcontact family about starting antipsychotic 02/15/17 11:10 VH improved and no behaviors noted. Continue current care 11/13/17 19:14 Remains agitated at night. Haldol 1mg PO 1900. gave consent
[2017-02-16] MEDS: LIDOCAINE PATCH REMOVAL TOP SCH (21:03)
[2017-02-17] MEDS: LIDOCAINE 5% PATCH TOP SCH (09:23)
[2017-02-17] MEDS: FUROSEMIDE 20 MG TABLET PO SCH (09:24)
[2017-02-17] MEDS: RANITIDINE 150 MG TABLET PO SCH ×2 (09:24→20:13)
[2017-02-17] MEDS: NITROGLYCERIN 0.6 MG/HR PATCH TD SCH (09:32)
[2017-02-17] MEDS: SENNA + DOCUSATE TABLET PO SCH ×2 (09:35→20:13)
[2017-02-17] MEDS: POLYETHYL GLYCOL 3350 17gm PACKET PO SCH (09:35)
[2017-02-17] MEDS ORDERED: HALOPERIDOL 1 MG TABLET PO SCH (19:00)
[2017-02-17] MEDS: QUETIAPINE 25 MG TABLET PO SCH (20:21)
[2017-02-17] MEDS: NITROGLYCERIN PATCH REMOVAL TD SCH (21:01)
[2017-02-17] MEDS: LIDOCAINE PATCH REMOVAL TOP SCH (21:01)
--- NOTE | 2017-02-17 21:24 | Neuropsych Progress Note ---
[facility] Subjective Date: 02/17/17 - Sujective/Severity of Illness Medications: Acetaminophen (Tylenol) 325 - 650 mg PO Q5H PRN PRN Reason: Discomfort Last Admin: 02/16/17 16:55 Dose: 650 mg Hydrocodone Bitart/Acetaminophen (Mcdavid 5/325) 1 tab PO Q4H PRN PRN Reason: Pain Last Admin: 02/12/17 20:33 Dose: 1 tab Diltiazem HCl (Cardizem Cd) 180 mg PO DAILY [facility] [place] Last Admin: 02/17/17 09:32 Dose: 180 mg Enalapril Maleate (Vasotec) 5 mg PO DAILY [facility] [place] Last Admin: 02/17/17 09:32 Dose: 5 mg Furosemide (Lasix) 20 mg PO DAILY [facility] [place] Last Admin: 02/17/17 09:24 Dose: 20 mg Haloperidol (Haldol) 0.5 mg PO Q6H PRN PRN Reason: Extreme agitation Last Admin: 02/14/17 01:01 Dose: 0.5 mg Haloperidol Lactate (Haldol) 0.5 mg IM Q6H PRN PRN Reason: Extreme agitation Last Admin: 02/15/17 21:43 Dose: 0.5 mg Lidocaine (Lidoderm) 1 patch TOP DAILY [facility] [place] Last Admin: 02/17/17 09:23 Dose: 1 patch Lidocaine HCl/Dextrose (Lidoderm Patch Removal) 1 removal TOP 2100 [facility] [place] Last Admin: 02/17/17 21:01 Dose: 1 removal Lorazepam (Ativan) 0.5 mg PO Q6H PRN PRN Reason: Extreme agitation Last Admin: 02/13/17 15:29 Dose: 0.5 mg Lorazepam (Ativan Inj) 0.5 mg IM Q6H PRN PRN Reason: Extreme agitation Last Admin: 02/15/17 21:44 Dose: 0.5 mg Magnesium Hydroxide (Mom) 30 ml PO DAILY PRN PRN Reason: Constipation Metoprolol Tartrate (Lopressor) 12.5 mg PO BIDWM [facility] [place] Last Admin: 02/17/17 20:10 Dose: 12.5 mg Nitroglycerin (Nitro-Dur 0.6 Mg/Hr) 1 patch TD DAILY [facility] [place] Last Admin: 02/17/17 09:32 Dose: 1 patch Nitroglycerin (Nitro-Dur Patch Removal) 1 removal TD 2100 [facility] [place] Last Admin: 02/17/17 21:01 Dose: 1 removal Polyethylene Glycol (Miralax) 17 gm PO DAILY [facility] [place] Last Admin: 02/17/17 09:35 Dose: 17 gm Quetiapine Fumarate (Seroquel) 25 mg PO HS [facility] [place] Last Admin: 02/17/17 20:21 Dose: 25 mg Ranitidine HCl (Zantac) 150 mg PO BID [facility] [place] Last Admin: 02/17/17 20:13 Dose: 150 mg Senna/Docusate Sodium (Senna Plus Tablet) 2 tab PO BID [facility] [place] Last Admin: 02/17/17 20:13 Dose: Not Given Subjective: Patient seen and chart reviewed. Case discussed with treatment team. On interview, patient is pleasant though confused, and actively hallucinating throughout interview (thought she saw a knife on the floor, puppy in her lap) She is not distressed by these but has no insight into that they are hallucinations. She has her arm in a sling and reports it only hurts when "the kids pull on it," which they do sometimes just to be mean. She says she is upset because she thought her father would be visiting today but never showed up. Patient denies any SI or HI. Patient denies any adverse side effects related to psychotropic medications. Nursing staff report patient became significantly more agitated last evening - unclear whether Haldol may have exacerbated this but switch to Seroquel instead and consider whether patient can even tolerate antipsychotic. VSS. Start Time: 15:00 Stop Time: 15:20 Mental Status Exam Vitals: Last Vital Signs Temp 98.4 F 02/17/17 16:00 Pulse 88 02/17/17 16:00 Resp 16 02/17/17 16:00 BP 133/67 02/17/17 16:00 Pulse Ox 96 02/17/17 16:00 Height: 1.65 m Weight: 74.6 kg - Mental Status Exam Muscle Strength/Tone: Weak (Difficult to assess due to injury) Dressing: Casual Grooming: Other (Limited) Attitude: Cooperative (intermittent) Motor Activity: Retardation Eye Contact: Fair Speech: Slowed Volume: Soft Rhythm: Mumbled Orientation: Disoriented to place, Disoriented to situation, Oriented to person , Oriented to time Mood: Neutral (mildly irritable when talking about others, pleasant with me) Rate of Thoughts: Delayed Thought Organization: Other (varying confusion) Associations: Other (Unable to assess today ) Abstract Reasoning: Impaired, concrete Thought Content: Somatic Concerns (appropriate with injury) Perception/Psychotic: Psychotic Current Hallucinations: Visual, Auditory (suspected as reported by family) Language: Naming Impaired Fund of Knowledge: Other (decreased) Memory: Poor-immediate, Poor-recent Suicidal Ideation: Denies Homicidal Ideation: Denies Insight: Impaired Judgement: Impaired Impulse Control: Fair - Laboratory Result Diagrams: 02/16/17 06:51 02/16/17 06:51 Assessment and Plan (1) Humeral head fracture Qualifiers: Encounter type: initial encounter Fracture type: closed Laterality: right Qualified Code(s): S42.291A - Other displaced fracture of upper end of right humerus, initial encounter for closed fracture Current visit: Yes Status: Acute (2) Major neurocognitive disorder Problem details: Lewy Body Dementia suspected Current visit: Yes Status: Acute (3) Delirium due to another medical condition Current visit: Yes Status: Acute Hospital Course Summary Disclaimer: The visit summary below is not to be considered part of the above Progress Note. Hospital Course: Assessment Major neurocognitive disorder with acute psychosis. Hypokalemia, acute, present on admission. Anemia, normocytic, normochromic, unspecified, present on admission. 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 Hypertension, uncontrolled, chronic. GERD, chronic. Hypercholesterolemia, chronic. Plan - 02/10/07: [place]. Agree with admission to [facility] unit for further psychiatric evaluation and treatment. Provide safe and supportive environment. Fall prior to admission resulting in right slightly displaced fracture of greater tuberosity of humeral head. Sling placed prior to admission. Will consult Dr. Marcus for orthopedic evaluation and treatment recommendations. Ice to area as needed. Mcdavid 5mg Q6 hours as needed for pain control. Maintain sling. History of hypertension with urgency noted prior to admission. It is unclear if patient has been taking her home medications regularly. Will continue home medications (cardizem, enalapril, lasix and metoprolol) and monitor blood pressure closely. Will adjust medications as needed as trends are revealed. Hypokalemia noted on admission at 3.2. Will give 40 mEq KCl po now and recheck BMP in AM. Given history of uncontrolled hypertension, will change diet to reduced fat, low sodium. Recommend obtaining CXR and CT head as part of admission evaluation especially given recent fall. Medical records indicate atorvastatin as home medication. LFT within normal range. Will restart at home dose of 10mg daily. Upon discharge, patient's care will be returned to her PCP, Dr. Adamson. 02/11/17 Psych: Suspect delirium though cause is not clear. Will order CT of head for the time being. Would of course like to minimize narcotic use but this will be difficult given patient's injury. Will plan to restart Namenda 10mg BID once more stable and holding statin as it can lead to increased agitation. 02/12/17 Psych: CT of head has not yet been completed - will review as soon as complete. Agitation, confusion decreasing - likely because delirium improving. Will continue to monitor and assess whether patient needs meds for agitation ( she has not today). Repeat SLUMS on Thursday. Plan - 02/13/17: Overall, Isa appears to be doing well medically. Continue psychiatric care per Dr. Pena and team. She continues to have visual hallucinations. Continue to provide safe and supportive environment. Blood pressure noted to be consistently elevated. Review of medications reveals enalapril at lowest dose of 2.5. Will increase to 5mg daily and continue to monitor blood pressure closely. BMP today was unremarkable with SCr at 0.7. Monitor renal function periodically throughout admission. Continue to encourage oral intake. Patient was seen and evaluated by Dr. Marcus who did not feel the patient was a good candidate for surgical correction of her right humerus fracture and recommended conservative care with sling. Appreciate his time and expertise. Will recheck BMP and CBC on 02/16 to monitor blood counts, electrolytes and renal function. 02/13/17 Psych: Sensorium, cognition varies - likely due to delirium. Requested that CT be completed today and once complete can make further treatment decisions. If continues to have agitation or hallucinations as reported at home , plan to start antipsychotic. 02/14/17 14:24 Continues to be confused with visual hallucinations. Willcontact family about starting antipsychotic 02/15/17 11:10 VH improved and no behaviors noted. Continue current care 02/16/17 19:14 Remains agitated at night. Haldol 1mg PO 1900. gave consent 02/17/17 Psych: Patient became more psychotic after dose of Haldol last night - will switch to low-dose atypical (Seroquel 25mg PO q HS) tonight and monitor response.
[2017-02-18] MEDS: LIDOCAINE 5% PATCH TOP SCH (12:11)
[2017-02-18] MEDS: NITROGLYCERIN 0.6 MG/HR PATCH TD SCH (12:11)
[2017-02-18] MEDS: FUROSEMIDE 20 MG TABLET PO SCH (12:12)
[2017-02-18] MEDS: RANITIDINE 150 MG TABLET PO SCH ×2 (12:12→20:03)
[2017-02-18] MEDS: POLYETHYL GLYCOL 3350 17gm PACKET PO SCH (12:13)
[2017-02-18] MEDS: SENNA + DOCUSATE TABLET PO SCH ×2 (12:14→20:03)
[2017-02-18] MEDS: HALOPERIDOL 5 MG/ML INJECTION IM PRN (19:55)
[2017-02-18] MEDS: NITROGLYCERIN PATCH REMOVAL TD SCH (20:01)
[2017-02-18] MEDS: LIDOCAINE PATCH REMOVAL TOP SCH (20:02)
[2017-02-18] MEDS: QUETIAPINE 25 MG TABLET PO SCH (20:03)
--- NOTE | 2017-02-18 20:37 | Neuropsych Progress Note ---
[facility] Subjective Date: 02/19/17 - Sujective/Severity of Illness Medications: Acetaminophen (Tylenol) 325 - 650 mg PO Q5H PRN PRN Reason: Discomfort Last Admin: 02/16/17 16:55 Dose: 650 mg Hydrocodone Bitart/Acetaminophen ([place] 5/325) 1 tab PO Q4H PRN PRN Reason: Pain Last Admin: 02/12/17 20:33 Dose: 1 tab Diltiazem HCl (Cardizem Cd) 180 mg PO DAILY [facility] Last Admin: 02/18/17 12:12 Dose: 180 mg Enalapril Maleate (Vasotec) 5 mg PO DAILY [facility] Last Admin: 02/18/17 12:12 Dose: 5 mg Furosemide (Lasix) 20 mg PO DAILY [facility] Last Admin: 02/18/17 12:12 Dose: 20 mg Haloperidol (Haldol) 0.5 mg PO Q6H PRN PRN Reason: Extreme agitation Last Admin: 02/14/17 01:01 Dose: 0.5 mg Haloperidol Lactate (Haldol) 0.5 mg IM Q6H PRN PRN Reason: Extreme agitation Last Admin: 02/18/17 19:55 Dose: 0.5 mg Lidocaine (Lidoderm) 1 patch TOP DAILY [facility] Last Admin: 02/18/17 12:11 Dose: 1 patch Lidocaine HCl/Dextrose (Lidoderm Patch Removal) 1 removal TOP 2100 [facility] Last Admin: 02/18/17 20:02 Dose: 1 removal Lorazepam (Ativan) 0.5 mg PO Q6H PRN PRN Reason: Extreme agitation Last Admin: 02/13/17 15:29 Dose: 0.5 mg Lorazepam (Ativan Inj) 0.5 mg IM Q6H PRN PRN Reason: Extreme agitation Last Admin: 02/18/17 19:55 Dose: 0.5 mg Magnesium Hydroxide (Mom) 30 ml PO DAILY PRN PRN Reason: Constipation Metoprolol Tartrate (Lopressor) 12.5 mg PO BIDWM [facility] Last Admin: 02/18/17 17:09 Dose: 12.5 mg Nitroglycerin (Nitro-Dur 0.6 Mg/Hr) 1 patch TD DAILY [facility] Last Admin: 02/18/17 12:11 Dose: 1 patch Nitroglycerin (Nitro-Dur Patch Removal) 1 removal TD 2100 [facility] Last Admin: 02/18/17 20:01 Dose: 1 removal Polyethylene Glycol (Miralax) 17 gm PO DAILY [facility] Last Admin: 02/18/17 12:13 Dose: Not Given Quetiapine Fumarate (Seroquel) 25 mg PO HS [facility] Last Admin: 02/18/17 20:03 Dose: Not Given Ranitidine HCl (Zantac) 150 mg PO BID [facility] Last Admin: 02/18/17 20:03 Dose: Not Given Senna/Docusate Sodium (Senna Plus Tablet) 2 tab PO BID [facility] Last Admin: 02/18/17 20:03 Dose: Not Given Subjective: Patient seen and chart reviewed. Case discussed with treatment team. On interview, patient is pleasant though confused. Continues to have frequent VH. She states her "brother" yelled at her for having hallucinations and told her they would think she is crazy, which is upsetting to her. Patient denies any SI or HI. Patient denies any adverse side effects related to psychotropic medications. Nursing staff report patient did quite well with HS Seroquel. VSS. Start Time: 14:00 Stop Time: 14:20 Mental Status Exam Vitals: Last Vital Signs Temp 98.6 F 02/18/17 19:43 Pulse 65 02/18/17 19:43 Resp 18 02/18/17 19:43 BP 118/60 02/18/17 19:43 Pulse Ox 94 02/18/17 19:43 Height: 1.65 m Weight: 74.6 kg - Mental Status Exam Muscle Strength/Tone: Weak (Difficult to assess due to injury) Dressing: Casual Grooming: Other (Limited) Attitude: Cooperative (intermittent) Motor Activity: Retardation Eye Contact: Fair Speech: Slowed Volume: Soft Rhythm: Mumbled Orientation: Disoriented to place, Disoriented to situation, Oriented to person , Oriented to time Mood: Neutral (mildly irritable when talking about others, pleasant with me) Affect: Tearful (when talking about "brother") Rate of Thoughts: Delayed Thought Organization: Other (varies, relatively organized today) Associations: Illogical Abstract Reasoning: Impaired, concrete Thought Content: Ruminations Perception/Psychotic: Psychotic Current Hallucinations: Visual Language: Naming Impaired Fund of Knowledge: Other (decreased) Memory: Poor-immediate, Poor-recent Suicidal Ideation: Denies Homicidal Ideation: Denies Insight: Impaired Judgement: Impaired Impulse Control: Fair - Laboratory Result Diagrams: 02/16/17 06:51 02/16/17 06:51 Assessment and Plan (1) Humeral head fracture Qualifiers: Encounter type: initial encounter Fracture type: closed Laterality: right Qualified Code(s): S42.291A - Other displaced fracture of upper end of right humerus, initial encounter for closed fracture Current visit: Yes Status: Acute (2) Major neurocognitive disorder Problem details: Lewy Body Dementia suspected Current visit: Yes Status: Acute (3) Delirium due to another medical condition Current visit: Yes Status: Acute Hospital Course Summary Disclaimer: The visit summary below is not to be considered part of the above Progress Note. Hospital Course: Assessment Major neurocognitive disorder with acute psychosis. Hypokalemia, acute, present on admission. Anemia, normocytic, normochromic, unspecified, present on admission. 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 Hypertension, uncontrolled, chronic. GERD, chronic. Hypercholesterolemia, chronic. Plan - 02/10/07: [place]. Agree with admission to [facility] unit for further psychiatric evaluation and treatment. Provide safe and supportive environment. Fall prior to admission resulting in right slightly displaced fracture of greater tuberosity of humeral head. Sling placed prior to admission. Will consult Dr. Marcus for orthopedic evaluation and treatment recommendations. Ice to area as needed. [place] 5mg Q6 hours as needed for pain control. Maintain sling. History of hypertension with urgency noted prior to admission. It is unclear if patient has been taking her home medications regularly. Will continue home medications (cardizem, enalapril, lasix and metoprolol) and monitor blood pressure closely. Will adjust medications as needed as trends are revealed. Hypokalemia noted on admission at 3.2. Will give 40 mEq KCl po now and recheck BMP in AM. Given history of uncontrolled hypertension, will change diet to reduced fat, low sodium. Recommend obtaining CXR and CT head as part of admission evaluation especially given recent fall. Medical records indicate atorvastatin as home medication. LFT within normal range. Will restart at home dose of 10mg daily. Upon discharge, patient's care will be returned to her PCP, Dr. Adamson. 02/11/17 Psych: Suspect delirium though cause is not clear. Will order CT of head for the time being. Would of course like to minimize narcotic use but this will be difficult given patient's injury. Will plan to restart Namenda 10mg BID once more stable and holding statin as it can lead to increased agitation. 02/12/17 Psych: CT of head has not yet been completed - will review as soon as complete. Agitation, confusion decreasing - likely because delirium improving. Will continue to monitor and assess whether patient needs meds for agitation ( she has not today). Repeat SLUMS on Thursday. Plan - 02/13/17: Overall, Isa appears to be doing well medically. Continue psychiatric care per Dr. Pena and team. She continues to have visual hallucinations. Continue to provide safe and supportive environment. Blood pressure noted to be consistently elevated. Review of medications reveals enalapril at lowest dose of 2.5. Will increase to 5mg daily and continue to monitor blood pressure closely. BMP today was unremarkable with SCr at 0.7. Monitor renal function periodically throughout admission. Continue to encourage oral intake. Patient was seen and evaluated by Dr. Marcus who did not feel the patient was a good candidate for surgical correction of her right humerus fracture and recommended conservative care with sling. Appreciate his time and expertise. Will recheck BMP and CBC on 02/16 to monitor blood counts, electrolytes and renal function. 02/13/17 Psych: Sensorium, cognition varies - likely due to delirium. Requested that CT be completed today and once complete can make further treatment decisions. If continues to have agitation or hallucinations as reported at home , plan to start antipsychotic. 02/14/17 14:24 Continues to be confused with visual hallucinations. Willcontact family about starting antipsychotic 02/15/17 11:10 VH improved and no behaviors noted. Continue current care 02/16/17 19:14 Remains agitated at night. Haldol 1mg PO 1900. gave consent 02/17/17 Psych: Patient became more psychotic after dose of Haldol last night - will switch to low-dose atypical (Seroquel 25mg PO q HS) tonight and monitor response. 02/17/17 Psych: Continue current care - did well with Seroquel last night, monitor response tonight.
[2017-02-19] MEDS: NITROGLYCERIN PATCH REMOVAL TD SCH ×2 (00:08→21:11)
[2017-02-19] MEDS: HYDROCODONE/APAP 5mg/325mg TABLET PO PRN ×2 (03:10→22:25)
[2017-02-19] MEDS: SENNA + DOCUSATE TABLET PO SCH ×3 (09:36→20:07)
[2017-02-19] MEDS: RANITIDINE 150 MG TABLET PO SCH ×2 (09:36→09:39)
[2017-02-19] MEDS: FUROSEMIDE 20 MG TABLET PO SCH (09:38)
[2017-02-19] MEDS: NITROGLYCERIN 0.6 MG/HR PATCH TD SCH (09:39)
[2017-02-19] MEDS: LIDOCAINE 5% PATCH TOP SCH (09:39)
[2017-02-19] MEDS: POLYETHYL GLYCOL 3350 17gm PACKET PO SCH (12:16)
--- NOTE | 2017-02-19 12:47 | Progress Note ---
<Linda Valenzuela D - Last Filed: 02/19/17 12:43> - Date 02/19/17 Subjective: Isa was in the dayroom. She was alert and pleasant, though yesterday needed PRNs for aggressive and combative behavior. She states that her shoulder hurts. She denies chest pain, SOA, abdominal pain or GI complaints. Oral intake is variable; last BM was 02/17. Objective Vital signs: Temperature 96.8 F 02/19/17 08:00 Pulse Rate 78 02/19/17 08:00 Respiratory Rate 16 02/19/17 08:00 Blood Pressure 135/77 02/19/17 08:00 Pulse Oximetry 99 02/19/17 08:00 Height/Weight/BMI: Height 1.65 m Weight 74.6 kg Body Mass Index 27.5 - Constitutional Present: no acute distress, well nourished, well developed - Routine HEENT Exam Eye: Present: PERRL. Absent: conjunctival icterus, scleral injection ENT: Present: oropharynx clear - Routine Respiratory Exam Present: CTA bilaterally - Routine Cardiovascular Exam Present: RRR, S1, S2 - Routine Abdominal Exam Present: soft, normoactive bowel sounds, non distended, non tender - Routine Extremities Exam Present: no edema - Routine Musculoskeletal Exam Musculoskeletal: Present: limited range of motion (right arm in sling) - Routine Skin Exam Present: intact, dry, warm - Routine Neurological Exam Present: alert, normal speech - Routine Psychiatric Exam Present: normal affect, cooperative Results - Labs CBC & Chem 7: 02/16/17 06:51 02/16/17 06:51 Assessment and Plan (1) Humeral head fracture Current visit: Yes Status: Acute (2) Dementia with psychosis Current visit: Yes Status: Acute Assessment and Plan: IMPRESSION Major neurocognitive disorder with acute psychosis. Hypokalemia, acute, POA - resolved Anemia, normocytic, normochromic, POA - improved Right humeral head fx, POA Dementia with probable Lewy body. Cerebrovascular disease with findings of previous strokes on head CT 02/13/17 Hypertension. GERD. Hypercholesterolemia. PLAN - 02/13/17: Vit B12, folate, and TSH WNL; hgb improved on repeat labs. VSS. BP under good control since enalapril was increased to 5 mg; she is also on metoprolol. Continue sling/pain meds/conservative treatment for humeral head fx. Overall, medically stable. Dr. Pena's last note reviewed - Seroquel started HS (instead of Haldol, which seemed to cause more agitation). Head CT report reviewed: limited by metallic and motion artifact; postop change in left frontal lobe with encephalomalacia; expansion of left lat ventricle; b/ l basal ganglia lacunar infarcts. No hemorrhage/shift. Chronic microvascular ischemia. Trace mastoid effusions. She is allergic to ASA; could consider statin and Plavix though uncertain how much these would improve QOL given advanced dementia. Lipid panel was good. Will discuss secondary prevention w/ attending. May ultimately require additional conversation with DPOA/PCP. Resuscitation Status: Do Not Resuscitate Hospital Course Summary Disclaimer: The visit summary below is not to be considered part of the above Progress Note. Hospital Course: Assessment Major neurocognitive disorder with acute psychosis. Hypokalemia, acute, present on admission. Anemia, normocytic, normochromic, unspecified, present on admission. 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 Hypertension, uncontrolled, chronic. GERD, chronic. Hypercholesterolemia, chronic. Plan - 02/10/07: [place]. Agree with admission to [facility] for further psychiatric evaluation and treatment. Provide safe and supportive environment. Fall prior to admission resulting in right slightly displaced fracture of greater tuberosity of humeral head. Sling placed prior to admission. Will consult Dr. Marcus for orthopedic evaluation and treatment recommendations. Ice to area as needed. [place] 5mg Q6 hours as needed for pain control. Maintain sling. History of hypertension with urgency noted prior to admission. It is unclear if patient has been taking her home medications regularly. Will continue home medications (cardizem, enalapril, lasix and metoprolol) and monitor blood pressure closely. Will adjust medications as needed as trends are revealed. Hypokalemia noted on admission at 3.2. Will give 40 mEq KCl po now and recheck BMP in AM. Given history of uncontrolled hypertension, will change diet to reduced fat, low sodium. Recommend obtaining CXR and CT head as part of admission evaluation especially given recent fall. Medical records indicate atorvastatin as home medication. LFT within normal range. Will restart at home dose of 10mg daily. Upon discharge, patient's care will be returned to her PCP, Dr. Adamson. 02/11/17 Psych: Suspect delirium though cause is not clear. Will order CT of head for the time being. Would of course like to minimize narcotic use but this will be difficult given patient's injury. Will plan to restart Namenda 10mg BID once more stable and holding statin as it can lead to increased agitation. 02/12/17 Psych: CT of head has not yet been completed - will review as soon as complete. Agitation, confusion decreasing - likely because delirium improving. Will continue to monitor and assess whether patient needs meds for agitation ( she has not today). Repeat SLUMS on Thursday. Plan - 02/13/17: Overall, Isa appears to be doing well medically. Continue psychiatric care per Dr. Pena and team. She continues to have visual hallucinations. Continue to provide safe and supportive environment. Blood pressure noted to be consistently elevated. Review of medications reveals enalapril at lowest dose of 2.5. Will increase to 5mg daily and continue to monitor blood pressure closely. BMP today was unremarkable with SCr at 0.7. Monitor renal function periodically throughout admission. Continue to encourage oral intake. Patient was seen and evaluated by Dr. Marcus who did not feel the patient was a good candidate for surgical correction of her right humerus fracture and recommended conservative care with sling. Appreciate his time and expertise. Will recheck BMP and CBC on 02/16 to monitor blood counts, electrolytes and renal function. 02/13/17 Psych: Sensorium, cognition varies - likely due to delirium. Requested that CT be completed today and once complete can make further treatment decisions. If continues to have agitation or hallucinations as reported at home , plan to start antipsychotic. 02/14/17 14:24 Continues to be confused with visual hallucinations. Willcontact family about starting antipsychotic 02/15/17 11:10 VH improved and no behaviors noted. Continue current care 02/16/17 19:14 Remains agitated at night. Haldol 1mg PO 1900. gave consent 02/17/17 Psych: Patient became more psychotic after dose of Haldol last night - will switch to low-dose atypical (Seroquel 25mg PO q HS) tonight and monitor response. 02/19/17 Vit B12, folate, and TSH WNL; hgb improved on repeat labs. VSS. BP under good control since enalapril was increased to 5 mg; she is also on metoprolol. Continue sling/pain meds/conservative treatment for humeral head fx. Overall, medically stable. Dr. Pena's last note reviewed - Seroquel started HS (instead of Haldol, which seemed to cause more agitation). 02/19/17 IMPRESSION Major neurocognitive disorder with acute psychosis. Hypokalemia, acute, POA - resolved Anemia, normocytic, normochromic, POA - improved Right humeral head fx, POA Dementia with probable Lewy body. Cerebrovascular disease with findings of previous strokes on head CT 02/13/17 Hypertension. GERD. Hypercholesterolemia. PLAN - 02/13/17: Vit B12, folate, and TSH WNL; hgb improved on repeat labs. VSS. BP under good control since enalapril was increased to 5 mg; she is also on metoprolol. Continue sling/pain meds/conservative treatment for humeral head fx. Overall, medically stable. Dr. Pena's last note reviewed - Seroquel started HS (instead of Haldol, which seemed to cause more agitation). Head CT report reviewed: limited by metallic and motion artifact; postop change in left frontal lobe with encephalomalacia; expansion of left lat ventricle; b/ l basal ganglia lacunar infarcts. No hemorrhage/shift. Chronic microvascular ischemia. Trace mastoid effusions. She is allergic to ASA; could consider statin and Plavix though uncertain how much these would improve QOL given advanced dementia. Lipid panel was good. Will discuss secondary prevention w/ attending. May ultimately require additional conversation with DPOA/PCP. <Torres Lang IV - Last Filed: 02/19/17 15:01> - Date 02/19/17 Objective Vital signs: Temperature 96.8 F 02/19/17 08:00 Pulse Rate 78 02/19/17 08:00 Respiratory Rate 16 02/19/17 08:00 Blood Pressure 135/77 02/19/17 08:00 Pulse Oximetry 99 02/19/17 08:00 Height/Weight/BMI: Height 5 ft 5 in Weight 74.6 kg Body Mass Index 27.5 Results - Labs CBC & Chem 7: 02/16/17 06:51 02/16/17 06:51 Assessment and Plan (1) Humeral head fracture Current visit: Yes Status: Acute (2) Dementia with psychosis Current visit: Yes Status: Acute Assessment and Plan: I have independently evaluated and examined this patient. I reviewed the chart, the patient's history, and the GANG INVESTIGATOR/PA's documented findings as above. We discussed and formulated the assessment and plan as above with additions as below: Isa was seen in the dayroom. She c/o right arm pain. She denied soa, cp, nausea. nad, ctab, rrr no murmur, abdomen benign, no edema, cn [id number] intact lab from 02/16 reviewed. BP doing well with enalapril, metoprolol, cardizem. Will stop ranitidine and start prilosec for GERD Hospital Course Summary Disclaimer: The visit summary below is not to be considered part of the above Progress Note.
[2017-02-19] MEDS ORDERED: QUETIAPINE 25 MG TABLET PO PRN (14:48)
--- NOTE | 2017-02-19 16:01 | Neuropsych Progress Note ---
[facility] Subjective Date: 02/19/17 - Sujective/Severity of Illness Medications: Acetaminophen (Tylenol) 325 - 650 mg PO Q5H PRN PRN Reason: Discomfort Last Admin: 02/16/17 16:55 Dose: 650 mg Hydrocodone Bitart/Acetaminophen ([place] 5/325) 1 tab PO Q4H PRN PRN Reason: Pain Last Admin: 02/19/17 03:10 Dose: 1 tab Diltiazem HCl (Cardizem Cd) 180 mg PO DAILY [facility] Last Admin: 02/19/17 09:38 Dose: 180 mg Enalapril Maleate (Vasotec) 5 mg PO DAILY [facility] Last Admin: 02/19/17 09:38 Dose: 5 mg Furosemide (Lasix) 20 mg PO DAILY [facility] Last Admin: 02/19/17 09:38 Dose: 20 mg Haloperidol (Haldol) 0.5 mg PO Q6H PRN PRN Reason: Extreme agitation Last Admin: 02/14/17 01:01 Dose: 0.5 mg Haloperidol Lactate (Haldol) 0.5 mg IM Q6H PRN PRN Reason: Extreme agitation Last Admin: 02/18/17 19:55 Dose: 0.5 mg Lidocaine (Lidoderm) 1 patch TOP DAILY [facility] Last Admin: 02/19/17 09:39 Dose: 1 patch Lidocaine HCl/Dextrose (Lidoderm Patch Removal) 1 removal TOP 2100 [facility] Last Admin: 02/18/17 20:02 Dose: 1 removal Lorazepam (Ativan) 0.5 mg PO Q6H PRN PRN Reason: Extreme agitation Last Admin: 02/13/17 15:29 Dose: 0.5 mg Lorazepam (Ativan Inj) 0.5 mg IM Q6H PRN PRN Reason: Extreme agitation Last Admin: 02/18/17 19:55 Dose: 0.5 mg Magnesium Hydroxide (Mom) 30 ml PO DAILY PRN PRN Reason: Constipation Metoprolol Tartrate (Lopressor) 12.5 mg PO BIDWM [facility] Last Admin: 02/19/17 09:38 Dose: 12.5 mg Nitroglycerin (Nitro-Dur 0.6 Mg/Hr) 1 patch TD DAILY [facility] Last Admin: 02/19/17 09:39 Dose: 1 patch Nitroglycerin (Nitro-Dur Patch Removal) 1 removal TD 2100 [facility] Last Admin: 02/19/17 00:08 Dose: 1 removal Omeprazole (Prilosec) 20 mg PO ACB JORGE Polyethylene Glycol (Miralax) 17 gm PO DAILY [facility] Last Admin: 02/19/17 12:16 Dose: Not Given Quetiapine Fumarate (Seroquel) 25 mg PO HS [facility] Last Admin: 02/18/17 20:03 Dose: Not Given Quetiapine Fumarate (Seroquel) 12.5 mg PO Q6H PRN PRN Reason: Agitation Senna/Docusate Sodium (Senna Plus Tablet) 2 tab PO BID [facility] Last Admin: 02/19/17 12:16 Dose: Not Given Subjective: Patient seen and chart reviewed. Case discussed with treatment team. On interview, patient is pleasant though confused. Continues to have frequent VH. Patient denies any SI or HI. Patient denies any adverse side effects related to psychotropic medications. Nursing staff report patient became more agitated overnight and was given IM Ativan/Haldol, which I suspect exacerbated agitation. VSS. Start Time: 13:20 Stop Time: 13:40 Mental Status Exam Vitals: Last Vital Signs Temp 96.8 F 02/19/17 08:00 Pulse 78 02/19/17 08:00 Resp 16 02/19/17 08:00 BP 135/77 02/19/17 08:00 Pulse Ox 99 02/19/17 08:00 Height: 1.65 m Weight: 74.6 kg - Mental Status Exam Muscle Strength/Tone: Weak (Difficult to assess due to injury) Dressing: Casual Grooming: Other (Limited) Attitude: Cooperative (intermittent) Motor Activity: Retardation Eye Contact: Fair Speech: Slowed Volume: Soft Rhythm: Mumbled Orientation: Disoriented to place, Disoriented to situation, Oriented to person , Oriented to time Mood: Neutral (appropriate affect) Rate of Thoughts: Delayed Thought Organization: Other (varies, relatively organized today) Associations: Illogical Abstract Reasoning: Impaired, concrete Thought Content: Normal Perception/Psychotic: Psychotic Current Hallucinations: Visual Language: Naming Impaired Fund of Knowledge: Other (decreased) Memory: Poor-immediate, Poor-recent Suicidal Ideation: Denies Homicidal Ideation: Denies Insight: Impaired Judgement: Impaired Impulse Control: Fair - Laboratory Result Diagrams: 02/16/17 06:51 02/16/17 06:51 Assessment and Plan (1) Humeral head fracture Qualifiers: Encounter type: initial encounter Fracture type: closed Laterality: right Qualified Code(s): S42.291A - Other displaced fracture of upper end of right humerus, initial encounter for closed fracture Current visit: Yes Status: Acute (2) Major neurocognitive disorder Problem details: Lewy Body Dementia suspected Current visit: Yes Status: Acute (3) Delirium due to another medical condition Current visit: Yes Status: Acute Hospital Course Summary Disclaimer: The visit summary below is not to be considered part of the above Progress Note. Hospital Course: Assessment Major neurocognitive disorder with acute psychosis. Hypokalemia, acute, present on admission. Anemia, normocytic, normochromic, unspecified, present on admission. 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 Hypertension, uncontrolled, chronic. GERD, chronic. Hypercholesterolemia, chronic. Plan - 02/10/07: [place]. Agree with admission to [facility] for further psychiatric evaluation and treatment. Provide safe and supportive environment. Fall prior to admission resulting in right slightly displaced fracture of greater tuberosity of humeral head. Sling placed prior to admission. Will consult Dr. Marcus for orthopedic evaluation and treatment recommendations. Ice to area as needed. [place] 5mg Q6 hours as needed for pain control. Maintain sling. History of hypertension with urgency noted prior to admission. It is unclear if patient has been taking her home medications regularly. Will continue home medications (cardizem, enalapril, lasix and metoprolol) and monitor blood pressure closely. Will adjust medications as needed as trends are revealed. Hypokalemia noted on admission at 3.2. Will give 40 mEq KCl po now and recheck BMP in AM. Given history of uncontrolled hypertension, will change diet to reduced fat, low sodium. Recommend obtaining CXR and CT head as part of admission evaluation especially given recent fall. Medical records indicate atorvastatin as home medication. LFT within normal range. Will restart at home dose of 10mg daily. Upon discharge, patient's care will be returned to her PCP, Dr. Adamson. 02/11/17 Psych: Suspect delirium though cause is not clear. Will order CT of head for the time being. Would of course like to minimize narcotic use but this will be difficult given patient's injury. Will plan to restart Namenda 10mg BID once more stable and holding statin as it can lead to increased agitation. 02/12/17 Psych: CT of head has not yet been completed - will review as soon as complete. Agitation, confusion decreasing - likely because delirium improving. Will continue to monitor and assess whether patient needs meds for agitation ( she has not today). Repeat SLUMS on Thursday. Plan - 02/13/17: Overall, Isa appears to be doing well medically. Continue psychiatric care per Dr. Pena and team. She continues to have visual hallucinations. Continue to provide safe and supportive environment. Blood pressure noted to be consistently elevated. Review of medications reveals enalapril at lowest dose of 2.5. Will increase to 5mg daily and continue to monitor blood pressure closely. BMP today was unremarkable with SCr at 0.7. Monitor renal function periodically throughout admission. Continue to encourage oral intake. Patient was seen and evaluated by Dr. Marcus who did not feel the patient was a good candidate for surgical correction of her right humerus fracture and recommended conservative care with sling. Appreciate his time and expertise. Will recheck BMP and CBC on 02/16 to monitor blood counts, electrolytes and renal function. 02/13/17 Psych: Sensorium, cognition varies - likely due to delirium. Requested that CT be completed today and once complete can make further treatment decisions. If continues to have agitation or hallucinations as reported at home , plan to start antipsychotic. 02/14/17 14:24 Continues to be confused with visual hallucinations. Willcontact family about starting antipsychotic 02/15/17 11:10 VH improved and no behaviors noted. Continue current care 02/16/17 19:14 Remains agitated at night. Haldol 1mg PO 1900. gave consent 02/17/17 Psych: Patient became more psychotic after dose of Haldol last night - will switch to low-dose atypical (Seroquel 25mg PO q HS) tonight and monitor response. 02/17/17 Psych: Continue current care - did well with Seroquel last night, monitor response tonight. 02/19/17 Psych: Discontinued PRN Haldol, ordered Seroquel 12.5mg PO q 6hrs PRN agitation instead. Hopefully patient does well again tonight - will monitor, can likely return home with HH, PT/OT soon.
[2017-02-19] MEDS: ACETAMINOPHEN 325 MG TABLET PO PRN (20:03)
[2017-02-19] MEDS: QUETIAPINE 25 MG TABLET PO SCH (20:06)
[2017-02-19] MEDS: LIDOCAINE PATCH REMOVAL TOP SCH (21:11)
[2017-02-20] MEDS: HYDROCODONE/APAP 5mg/325mg TABLET PO PRN ×2 (01:35→20:45)
[2017-02-20] MEDS: NITROGLYCERIN 0.6 MG/HR PATCH TD SCH (08:02)
[2017-02-20] MEDS: LIDOCAINE 5% PATCH TOP SCH (08:03)
[2017-02-20] MEDS: FUROSEMIDE 20 MG TABLET PO SCH (08:03)
[2017-02-20] MEDS: ACETAMINOPHEN 325 MG TABLET PO PRN ×2 (08:03→16:58)
[2017-02-20] MEDS: OMEPRAZOLE 20 MG CAPSULE PO SCH (08:04)
[2017-02-20] MEDS: POLYETHYL GLYCOL 3350 17gm PACKET PO SCH (08:05)
[2017-02-20] MEDS: SENNA + DOCUSATE TABLET PO SCH ×2 (08:05→20:03)
--- NOTE | 2017-02-20 14:47 | Neuropsych Progress Note ---
[facility] Subjective Date: 02/20/17 - Sujective/Severity of Illness Medications: Acetaminophen (Tylenol) 325 - 650 mg PO Q5H PRN PRN Reason: Discomfort Last Admin: 02/20/17 08:03 Dose: 325 mg Hydrocodone Bitart/Acetaminophen ([place] 5/325) 1 tab PO Q4H PRN PRN Reason: Pain Last Admin: 02/20/17 01:35 Dose: 1 tab Diltiazem HCl (Cardizem Cd) 180 mg PO DAILY [facility] Last Admin: 02/20/17 08:02 Dose: 180 mg Enalapril Maleate (Vasotec) 5 mg PO DAILY [facility] Last Admin: 02/20/17 08:03 Dose: 5 mg Furosemide (Lasix) 20 mg PO DAILY [facility] Last Admin: 02/20/17 08:03 Dose: 20 mg Haloperidol (Haldol) 0.5 mg PO Q6H PRN PRN Reason: Extreme agitation Last Admin: 02/14/17 01:01 Dose: 0.5 mg Haloperidol Lactate (Haldol) 0.5 mg IM Q6H PRN PRN Reason: Extreme agitation Last Admin: 02/18/17 19:55 Dose: 0.5 mg Lidocaine (Lidoderm) 1 patch TOP DAILY [facility] Last Admin: 02/20/17 08:03 Dose: 1 patch Lidocaine HCl/Dextrose (Lidoderm Patch Removal) 1 removal TOP 2100 [facility] Last Admin: 02/19/17 21:11 Dose: 1 removal Lorazepam (Ativan) 0.5 mg PO Q6H PRN PRN Reason: Extreme agitation Last Admin: 02/13/17 15:29 Dose: 0.5 mg Lorazepam (Ativan Inj) 0.5 mg IM Q6H PRN PRN Reason: Extreme agitation Last Admin: 02/18/17 19:55 Dose: 0.5 mg Magnesium Hydroxide (Mom) 30 ml PO DAILY PRN PRN Reason: Constipation Metoprolol Tartrate (Lopressor) 12.5 mg PO BIDWM [facility] Last Admin: 02/20/17 08:03 Dose: 12.5 mg Nitroglycerin (Nitro-Dur 0.6 Mg/Hr) 1 patch TD DAILY [facility] Last Admin: 02/20/17 08:02 Dose: 1 patch Nitroglycerin (Nitro-Dur Patch Removal) 1 removal TD 2100 [facility] Last Admin: 02/19/17 21:11 Dose: 1 removal Omeprazole (Prilosec) 20 mg PO ACB [facility] Last Admin: 02/20/17 08:04 Dose: 20 mg Polyethylene Glycol (Miralax) 17 gm PO DAILY [facility] Last Admin: 02/20/17 08:05 Dose: Not Given Quetiapine Fumarate (Seroquel) 25 mg PO HS [facility] Last Admin: 02/19/17 20:06 Dose: 25 mg Quetiapine Fumarate (Seroquel) 12.5 mg PO Q6H PRN PRN Reason: Agitation Senna/Docusate Sodium (Senna Plus Tablet) 2 tab PO BID [facility] Last Admin: 02/20/17 08:05 Dose: Not Given Subjective: Pt seen and chart examined. Nursing reports pt did better last night. Continues to have confusion in the evening but no PRN psychotropics were needed. On face to face the pt is pleasant but confused. She is only oriented to self. She reports doing well and voices no concerns at this time. Tolerating meds Start Time: 11:30 Stop Time: 11:45 Mental Status Exam Vitals: Last Vital Signs Temp 97.6 F 02/20/17 08:00 Pulse 80 02/20/17 08:00 Resp 18 02/20/17 08:00 BP 141/73 H 02/20/17 08:00 Pulse Ox 95 02/20/17 08:00 Height: 1.65 m Weight: 74.6 kg - Mental Status Exam Muscle Strength/Tone: Weak (Difficult to assess due to injury) Dressing: Casual Grooming: Other (Limited) Attitude: Cooperative (intermittent) Motor Activity: Retardation Eye Contact: Fair Speech: Slowed Volume: Soft Rhythm: Mumbled Orientation: Disoriented to place, Disoriented to situation, Oriented to person , Oriented to time Mood: Neutral (appropriate affect) Rate of Thoughts: Delayed Thought Organization: Other (varies, relatively organized today) Associations: Illogical Abstract Reasoning: Impaired, concrete Thought Content: Normal Perception/Psychotic: Psychotic Current Hallucinations: Visual Language: Naming Impaired Fund of Knowledge: Other (decreased) Memory: Poor-immediate, Poor-recent Suicidal Ideation: Denies Homicidal Ideation: Denies Insight: Impaired Judgement: Impaired Impulse Control: Fair - Laboratory Result Diagrams: 02/16/17 06:51 02/16/17 06:51 Laboratory Results - last 24 hr 02/19/17 17:26 Ur Collection Type Urine, clean catch Urine Color Yellow Urine Clarity Clear Urine pH 6.0 Ur Specific [place] <=1.005 L Urine Protein Negative Urine Glucose (UA) Negative Urine Ketones Negative Urine Occult Blood Negative Urine Nitrate Negative Urine Bilirubin Negative Urine Urobilinogen 0.2 Ur Leukocyte Esterase Negative Urinalysis Comment Microscopic not ind. Assessment and Plan (1) Humeral head fracture Qualifiers: Encounter type: initial encounter Fracture type: closed Laterality: right Qualified Code(s): S42.291A - Other displaced fracture of upper end of right humerus, initial encounter for closed fracture Current visit: Yes Status: Acute (2) Major neurocognitive disorder Problem details: Lewy Body Dementia suspected Current visit: Yes Status: Acute (3) Delirium due to another medical condition Current visit: Yes Status: Acute Hospital Course Summary Disclaimer: The visit summary below is not to be considered part of the above Progress Note. Hospital Course: Assessment Major neurocognitive disorder with acute psychosis. Hypokalemia, acute, present on admission. Anemia, normocytic, normochromic, unspecified, present on admission. 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 Hypertension, uncontrolled, chronic. GERD, chronic. Hypercholesterolemia, chronic. Plan - 02/10/07: [place]. Agree with admission to [facility] for further psychiatric evaluation and treatment. Provide safe and supportive environment. Fall prior to admission resulting in right slightly displaced fracture of greater tuberosity of humeral head. Sling placed prior to admission. Will consult Dr. Marcus for orthopedic evaluation and treatment recommendations. Ice to area as needed. [place] 5mg Q6 hours as needed for pain control. Maintain sling. History of hypertension with urgency noted prior to admission. It is unclear if patient has been taking her home medications regularly. Will continue home medications (cardizem, enalapril, lasix and metoprolol) and monitor blood pressure closely. Will adjust medications as needed as trends are revealed. Hypokalemia noted on admission at 3.2. Will give 40 mEq KCl po now and recheck BMP in AM. Given history of uncontrolled hypertension, will change diet to reduced fat, low sodium. Recommend obtaining CXR and CT head as part of admission evaluation especially given recent fall. Medical records indicate atorvastatin as home medication. LFT within normal range. Will restart at home dose of 10mg daily. Upon discharge, patient's care will be returned to her PCP, Dr. Adamson. 02/11/17 Psych: Suspect delirium though cause is not clear. Will order CT of head for the time being. Would of course like to minimize narcotic use but this will be difficult given patient's injury. Will plan to restart Namenda 10mg BID once more stable and holding statin as it can lead to increased agitation. 02/12/17 Psych: CT of head has not yet been completed - will review as soon as complete. Agitation, confusion decreasing - likely because delirium improving. Will continue to monitor and assess whether patient needs meds for agitation ( she has not today). Repeat SLUMS on Thursday. Plan - 02/13/17: Overall, Isa appears to be doing well medically. Continue psychiatric care per Dr. Pena and team. She continues to have visual hallucinations. Continue to provide safe and supportive environment. Blood pressure noted to be consistently elevated. Review of medications reveals enalapril at lowest dose of 2.5. Will increase to 5mg daily and continue to monitor blood pressure closely. BMP today was unremarkable with SCr at 0.7. Monitor renal function periodically throughout admission. Continue to encourage oral intake. Patient was seen and evaluated by Dr. Marcus who did not feel the patient was a good candidate for surgical correction of her right humerus fracture and recommended conservative care with sling. Appreciate his time and expertise. Will recheck BMP and CBC on 02/16 to monitor blood counts, electrolytes and renal function. 02/13/17 Psych: Sensorium, cognition varies - likely due to delirium. Requested that CT be completed today and once complete can make further treatment decisions. If continues to have agitation or hallucinations as reported at home , plan to start antipsychotic. 02/14/17 14:24 Continues to be confused with visual hallucinations. Willcontact family about starting antipsychotic 02/15/17 11:10 VH improved and no behaviors noted. Continue current care 02/16/17 19:14 Remains agitated at night. Haldol 1mg PO 1900. gave consent 02/17/17 Psych: Patient became more psychotic after dose of Haldol last night - will switch to low-dose atypical (Seroquel 25mg PO q HS) tonight and monitor response. 02/17/17 Psych: Continue current care - did well with Seroquel last night, monitor response tonight. 02/19/17 Psych: Discontinued PRN Haldol, ordered Seroquel 12.5mg PO q 6hrs PRN agitation instead. Hopefully patient does well again tonight - will monitor, can likely return home with HH, PT/OT soon. 02/20/17 14:47 PT is doing better. Some agitation at night but improved. Continue current care
[2017-02-20] MEDS: QUETIAPINE 25 MG TABLET PO SCH (20:03)
[2017-02-20] MEDS: NITROGLYCERIN PATCH REMOVAL TD SCH (21:00)
[2017-02-20] MEDS: LIDOCAINE PATCH REMOVAL TOP SCH (21:00)
[2017-02-21] MEDS: OMEPRAZOLE 20 MG CAPSULE PO SCH (06:24)
[2017-02-21] MEDS: POLYETHYL GLYCOL 3350 17gm PACKET PO SCH (08:34)
[2017-02-21] MEDS: FUROSEMIDE 20 MG TABLET PO SCH (08:34)
[2017-02-21] MEDS: NITROGLYCERIN 0.6 MG/HR PATCH TD SCH (08:34)
[2017-02-21] MEDS: LIDOCAINE 5% PATCH TOP SCH (08:34)
[2017-02-21] MEDS: SENNA + DOCUSATE TABLET PO SCH ×2 (08:35→20:39)
--- NOTE | 2017-02-21 10:43 | Neuropsych Progress Note ---
[facility] Subjective Date: 02/21/17 - Sujective/Severity of Illness Medications: Acetaminophen (Tylenol) 325 - 650 mg PO Q5H PRN PRN Reason: Discomfort Last Admin: 02/20/17 16:58 Dose: 325 mg Hydrocodone Bitart/Acetaminophen ([place] 5/325) 1 tab PO Q4H PRN PRN Reason: Pain Last Admin: 02/20/17 20:45 Dose: 1 tab Diltiazem HCl (Cardizem Cd) 180 mg PO DAILY [facility] Last Admin: 02/21/17 08:33 Dose: 180 mg Enalapril Maleate (Vasotec) 5 mg PO DAILY [facility] Last Admin: 02/21/17 08:34 Dose: 5 mg Furosemide (Lasix) 20 mg PO DAILY [facility] Last Admin: 02/21/17 08:34 Dose: 20 mg Haloperidol (Haldol) 0.5 mg PO Q6H PRN PRN Reason: Extreme agitation Last Admin: 02/14/17 01:01 Dose: 0.5 mg Haloperidol Lactate (Haldol) 0.5 mg IM Q6H PRN PRN Reason: Extreme agitation Last Admin: 02/18/17 19:55 Dose: 0.5 mg Lidocaine (Lidoderm) 1 patch TOP DAILY [facility] Last Admin: 02/21/17 08:34 Dose: 1 patch Lidocaine HCl/Dextrose (Lidoderm Patch Removal) 1 removal TOP 2100 [facility] Last Admin: 02/20/17 21:00 Dose: 1 removal Lorazepam (Ativan) 0.5 mg PO Q6H PRN PRN Reason: Extreme agitation Last Admin: 02/13/17 15:29 Dose: 0.5 mg Lorazepam (Ativan Inj) 0.5 mg IM Q6H PRN PRN Reason: Extreme agitation Last Admin: 02/18/17 19:55 Dose: 0.5 mg Magnesium Hydroxide (Mom) 30 ml PO DAILY PRN PRN Reason: Constipation Metoprolol Tartrate (Lopressor) 12.5 mg PO BIDWM [facility] Last Admin: 02/21/17 08:33 Dose: 12.5 mg Nitroglycerin (Nitro-Dur 0.6 Mg/Hr) 1 patch TD DAILY [facility] Last Admin: 02/21/17 08:34 Dose: 1 patch Nitroglycerin (Nitro-Dur Patch Removal) 1 removal TD 2100 [facility] Last Admin: 02/20/17 21:00 Dose: 1 removal Omeprazole (Prilosec) 20 mg PO ACB [facility] Last Admin: 02/21/17 06:24 Dose: 20 mg Polyethylene Glycol (Miralax) 17 gm PO DAILY [facility] Last Admin: 02/21/17 08:34 Dose: 17 gm Quetiapine Fumarate (Seroquel) 25 mg PO HS [facility] Last Admin: 02/20/17 20:03 Dose: 25 mg Quetiapine Fumarate (Seroquel) 12.5 mg PO Q6H PRN PRN Reason: Agitation Senna/Docusate Sodium (Senna Plus Tablet) 2 tab PO BID [facility] Last Admin: 02/21/17 08:35 Dose: 2 tab Subjective: Pt seen and chart examined. Nursing reports pt was having some hallucinations and was paranoid last night. On face to face the pt is pleasant but confused. She is only oriented to self. Denies any pain and voices no concerns at this time Start Time: 10:15 Stop Time: 10:30 Mental Status Exam Vitals: Last Vital Signs Temp 96.9 F 02/21/17 08:00 Pulse 76 02/21/17 08:00 Resp 16 02/21/17 08:00 BP 130/84 02/21/17 08:00 Pulse Ox 96 02/21/17 08:00 Height: 1.65 m Weight: 74.6 kg - Mental Status Exam Muscle Strength/Tone: Weak (Difficult to assess due to injury) Dressing: Casual Grooming: Other (Limited) Attitude: Cooperative (intermittent) Motor Activity: Retardation Eye Contact: Fair Speech: Slowed Volume: Soft Rhythm: Mumbled Orientation: Disoriented to place, Disoriented to situation, Oriented to person , Oriented to time Mood: Neutral (appropriate affect) Rate of Thoughts: Delayed Thought Organization: Other (varies, relatively organized today) Associations: Illogical Abstract Reasoning: Impaired, concrete Thought Content: Normal Perception/Psychotic: Psychotic Current Hallucinations: Visual Language: Naming Impaired Fund of Knowledge: Other (decreased) Memory: Poor-immediate, Poor-recent Suicidal Ideation: Denies Homicidal Ideation: Denies Insight: Impaired Judgement: Impaired Impulse Control: Fair - Laboratory Result Diagrams: 02/16/17 06:51 02/16/17 06:51 Assessment and Plan (1) Humeral head fracture Qualifiers: Encounter type: initial encounter Fracture type: closed Laterality: right Qualified Code(s): S42.291A - Other displaced fracture of upper end of right humerus, initial encounter for closed fracture Current visit: Yes Status: Acute (2) Major neurocognitive disorder Problem details: Lewy Body Dementia suspected Current visit: Yes Status: Acute (3) Delirium due to another medical condition Current visit: Yes Status: Acute Hospital Course Summary Disclaimer: The visit summary below is not to be considered part of the above Progress Note. Hospital Course: Assessment Major neurocognitive disorder with acute psychosis. Hypokalemia, acute, present on admission. Anemia, normocytic, normochromic, unspecified, present on admission. 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 Hypertension, uncontrolled, chronic. GERD, chronic. Hypercholesterolemia, chronic. Plan - 02/10/07: [place]. Agree with admission to [facility] for further psychiatric evaluation and treatment. Provide safe and supportive environment. Fall prior to admission resulting in right slightly displaced fracture of greater tuberosity of humeral head. Sling placed prior to admission. Will consult Dr. Marcus for orthopedic evaluation and treatment recommendations. Ice to area as needed. [place] 5mg Q6 hours as needed for pain control. Maintain sling. History of hypertension with urgency noted prior to admission. It is unclear if patient has been taking her home medications regularly. Will continue home medications (cardizem, enalapril, lasix and metoprolol) and monitor blood pressure closely. Will adjust medications as needed as trends are revealed. Hypokalemia noted on admission at 3.2. Will give 40 mEq KCl po now and recheck BMP in AM. Given history of uncontrolled hypertension, will change diet to reduced fat, low sodium. Recommend obtaining CXR and CT head as part of admission evaluation especially given recent fall. Medical records indicate atorvastatin as home medication. LFT within normal range. Will restart at home dose of 10mg daily. Upon discharge, patient's care will be returned to her PCP, Dr. Adamson. 02/11/17 Psych: Suspect delirium though cause is not clear. Will order CT of head for the time being. Would of course like to minimize narcotic use but this will be difficult given patient's injury. Will plan to restart Namenda 10mg BID once more stable and holding statin as it can lead to increased agitation. 02/12/17 Psych: CT of head has not yet been completed - will review as soon as complete. Agitation, confusion decreasing - likely because delirium improving. Will continue to monitor and assess whether patient needs meds for agitation ( she has not today). Repeat SLUMS on Thursday. Plan - 02/13/17: Overall, Isa appears to be doing well medically. Continue psychiatric care per Dr. Pena and team. She continues to have visual hallucinations. Continue to provide safe and supportive environment. Blood pressure noted to be consistently elevated. Review of medications reveals enalapril at lowest dose of 2.5. Will increase to 5mg daily and continue to monitor blood pressure closely. BMP today was unremarkable with SCr at 0.7. Monitor renal function periodically throughout admission. Continue to encourage oral intake. Patient was seen and evaluated by Dr. Marcus who did not feel the patient was a good candidate for surgical correction of her right humerus fracture and recommended conservative care with sling. Appreciate his time and expertise. Will recheck BMP and CBC on 02/16 to monitor blood counts, electrolytes and renal function. 02/13/17 Psych: Sensorium, cognition varies - likely due to delirium. Requested that CT be completed today and once complete can make further treatment decisions. If continues to have agitation or hallucinations as reported at home , plan to start antipsychotic. 02/14/17 14:24 Continues to be confused with visual hallucinations. Willcontact family about starting antipsychotic 02/15/17 11:10 VH improved and no behaviors noted. Continue current care 02/16/17 19:14 Remains agitated at night. Haldol 1mg PO 1900. gave consent 02/17/17 Psych: Patient became more psychotic after dose of Haldol last night - will switch to low-dose atypical (Seroquel 25mg PO q HS) tonight and monitor response. 02/17/17 Psych: Continue current care - did well with Seroquel last night, monitor response tonight. 02/19/17 Psych: Discontinued PRN Haldol, ordered Seroquel 12.5mg PO q 6hrs PRN agitation instead. Hopefully patient does well again tonight - will monitor, can likely return home with HH, PT/OT soon. 02/20/17 14:47 PT is doing better. Some agitation at night but improved. Continue current care 02/21/17 10:42 Continues to have some hallucinations and paranoia at night. Will increase Seroquel to 50mg QHS
[2017-02-21] MEDS: LIDOCAINE PATCH REMOVAL TOP SCH (20:38)
[2017-02-21] MEDS: QUETIAPINE 25 MG TABLET PO SCH (20:39)
[2017-02-21] MEDS: NITROGLYCERIN PATCH REMOVAL TD SCH (20:39)
[2017-02-22] MEDS: FUROSEMIDE 20 MG TABLET PO SCH (08:25)
[2017-02-22] MEDS: POLYETHYL GLYCOL 3350 17gm PACKET PO SCH (08:25)
[2017-02-22] MEDS: OMEPRAZOLE 20 MG CAPSULE PO SCH (08:25)
[2017-02-22] MEDS: SENNA + DOCUSATE TABLET PO SCH ×2 (08:27→20:12)
[2017-02-22] MEDS: NITROGLYCERIN 0.6 MG/HR PATCH TD SCH (08:29)
[2017-02-22] MEDS: LIDOCAINE 5% PATCH TOP SCH (08:29)
--- NOTE | 2017-02-22 09:26 | Progress Note ---
- Date 02/22/17 Subjective: Roge is seen today while eating breakfast in the day room in follow up for her humeral head fracture and dementia with behaviors. She states that she is doing well and denies any complaints. No chest pain, shortness of breath, cough , abdominal pain, nausea, vomiting or dysuria. She denies any shoulder or arm pain and is noted to have her right arm in the sling properly. She is eating well and her appetite is good. Bowels are moving. Patient care discussed with nursing who is present on exam and reports that Roge has been doing well. She seems to be doing well with the Seroquel at night and no reported hallucinations today. Blood pressure improved following increase in enalapril on 02/13. No recent labs. UA on 02/19 was negative. Anticipate discharge home soon with home health, possibly 02/23 or 02/24. Objective Vital signs: Temperature 97.3 F 02/22/17 08:00 Pulse Rate 75 02/22/17 08:00 Respiratory Rate 18 02/22/17 08:00 Blood Pressure 164/79 H 02/22/17 08:00 Pulse Oximetry 95 02/22/17 08:00 Height/Weight/BMI: Height 5 ft 5 in Weight 164 lb 7.437 oz Body Mass Index 27.5 - Constitutional Present: no acute distress, well nourished, well developed, cooperative Comments: Eating breakfast in the day room and in no apparent distress. Alert and orientated to person only. - Routine HEENT Exam Head: Present: normocephalic, atraumatic Eye: Present: PERRL. Absent: conjunctival icterus ENT: Present: mucous membranes moist - Routine Respiratory Exam Present: CTA bilaterally. Absent: rales, respiratory distress, rhonchi, stridor , wheezes - Routine Cardiovascular Exam Present: RRR, S1, S2, murmur - Routine Abdominal Exam Present: soft, normoactive bowel sounds, non tender - Routine Extremities Exam Present: no edema, pulses intact Comments: right arm in sling. - Routine Back/Spine/Pelvis Exam Back/Spine: Present: full ROM. Absent: vertebral tenderness - Routine Musculoskeletal Exam Musculoskeletal: Present: no clubbing or cyanosis - Routine Skin Exam Present: intact, dry, warm. Absent: jaundice Comments: afebrile. - Routine Neurological Exam Present: alert, normal speech. Absent: oriented X3 orientated to person only; right arm in sling with restricted mobility. - Routine Lymphatic Exam Lymphatic: Absent: lymphedema - Routine Psychiatric Exam Present: cooperative Results - Labs CBC & Chem 7: 02/16/17 06:51 02/16/17 06:51 Assessment and Plan (1) Dementia with psychosis Current visit: Yes Status: Acute (2) Humeral head fracture Current visit: Yes Status: Acute Assessment and Plan: Assessment Major neurocognitive disorder with acute psychosis. Hypokalemia, acute, present on admission. Anemia, normocytic, normochromic, unspecified, present on admission. 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 Hypertension, uncontrolled, chronic. GERD, chronic. Hypercholesterolemia, chronic. Plan - 02/22/17 ([place]) Overall, Roge is doing well. Behaviors in evening have improved with Seroquel. No reported hallucinations today. Continue psychiatric care per psychiatric team. Continue to provide safe and supportive environment. Anticipate discharge in the near future, hopefully 02/23 or 02/24. Blood pressure remains well controlled following increase in enalapril to 5mg on 02/13/17. Continue to monitor closely. Continue Cardizem, enalapril, lasix and metoprolol. UA on 02/19/17 was negative. Labs on 02/16/17 were unremarkable. Continue with current care. GI Prophylaxis: other (Prilosec) Resuscitation Status: Do Not Resuscitate - Time spent with patient Time with patient PN: 25 minutes Hospital Course Summary Disclaimer: The visit summary below is not to be considered part of the above Progress Note. Hospital Course: Assessment Major neurocognitive disorder with acute psychosis. Hypokalemia, acute, present on admission. Anemia, normocytic, normochromic, unspecified, present on admission. 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 Hypertension, uncontrolled, chronic. GERD, chronic. Hypercholesterolemia, chronic. Plan - 02/10/07: [place]. Agree with admission to [facility] for further psychiatric evaluation and treatment. Provide safe and supportive environment. Fall prior to admission resulting in right slightly displaced fracture of greater tuberosity of humeral head. Sling placed prior to admission. Will consult Dr. Marcus for orthopedic evaluation and treatment recommendations. Ice to area as needed. [place] 5mg Q6 hours as needed for pain control. Maintain sling. History of hypertension with urgency noted prior to admission. It is unclear if patient has been taking her home medications regularly. Will continue home medications (cardizem, enalapril, lasix and metoprolol) and monitor blood pressure closely. Will adjust medications as needed as trends are revealed. Hypokalemia noted on admission at 3.2. Will give 40 mEq KCl po now and recheck BMP in AM. Given history of uncontrolled hypertension, will change diet to reduced fat, low sodium. Recommend obtaining CXR and CT head as part of admission evaluation especially given recent fall. Medical records indicate atorvastatin as home medication. LFT within normal range. Will restart at home dose of 10mg daily. Upon discharge, patient's care will be returned to her PCP, Dr. Adamson. 02/11/17 Psych: Suspect delirium though cause is not clear. Will order CT of head for the time being. Would of course like to minimize narcotic use but this will be difficult given patient's injury. Will plan to restart Namenda 10mg BID once more stable and holding statin as it can lead to increased agitation. 02/12/17 Psych: CT of head has not yet been completed - will review as soon as complete. Agitation, confusion decreasing - likely because delirium improving. Will continue to monitor and assess whether patient needs meds for agitation ( she has not today). Repeat SLUMS on Thursday. Plan - 02/13/17: Overall, Isa appears to be doing well medically. Continue psychiatric care per Dr. Pena and team. She continues to have visual hallucinations. Continue to provide safe and supportive environment. Blood pressure noted to be consistently elevated. Review of medications reveals enalapril at lowest dose of 2.5. Will increase to 5mg daily and continue to monitor blood pressure closely. BMP today was unremarkable with SCr at 0.7. Monitor renal function periodically throughout admission. Continue to encourage oral intake. Patient was seen and evaluated by Dr. Marcus who did not feel the patient was a good candidate for surgical correction of her right humerus fracture and recommended conservative care with sling. Appreciate his time and expertise. Will recheck BMP and CBC on 02/16 to monitor blood counts, electrolytes and renal function. 02/13/17 Psych: Sensorium, cognition varies - likely due to delirium. Requested that CT be completed today and once complete can make further treatment decisions. If continues to have agitation or hallucinations as reported at home , plan to start antipsychotic. 02/14/17 14:24 Continues to be confused with visual hallucinations. Willcontact family about starting antipsychotic 02/15/17 11:10 VH improved and no behaviors noted. Continue current care 02/16/17 19:14 Remains agitated at night. Haldol 1mg PO 1900. gave consent 02/17/17 Psych: Patient became more psychotic after dose of Haldol last night - will switch to low-dose atypical (Seroquel 25mg PO q HS) tonight and monitor response. 02/17/17 Psych: Continue current care - did well with Seroquel last night, monitor response tonight. 02/19/17 Psych: Discontinued PRN Haldol, ordered Seroquel 12.5mg PO q 6hrs PRN agitation instead. Hopefully patient does well again tonight - will monitor, can likely return home with HH, PT/OT soon. 02/20/17 14:47 PT is doing better. Some agitation at night but improved. Continue current care 02/21/17 10:42 Continues to have some hallucinations and paranoia at night. Will increase Seroquel to 50mg QHS Plan - 02/22/17 ([place]) Overall, Roge is doing well. Behaviors in evening have improved with Seroquel. No reported hallucinations today. Continue psychiatric care per psychiatric team. Continue to provide safe and supportive environment. Anticipate discharge in the near future, hopefully 02/23 or 02/24. Blood pressure remains well controlled following increase in enalapril to 5mg on 02/13/17. Continue to monitor closely. Continue Cardizem, enalapril, lasix and metoprolol. UA on 02/19/17 was negative. Labs on 02/16/17 were unremarkable. Continue with current care.
--- NOTE | 2017-02-22 11:20 | Neuropsych Progress Note ---
[facility] Subjective Date: 02/22/17 - Sujective/Severity of Illness Medications: Acetaminophen (Tylenol) 325 - 650 mg PO Q5H PRN PRN Reason: Discomfort Last Admin: 02/20/17 16:58 Dose: 325 mg Hydrocodone Bitart/Acetaminophen ([place] 5/325) 1 tab PO Q4H PRN PRN Reason: Pain Last Admin: 02/20/17 20:45 Dose: 1 tab Diltiazem HCl (Cardizem Cd) 180 mg PO DAILY [facility] Last Admin: 02/22/17 08:25 Dose: 180 mg Enalapril Maleate (Vasotec) 5 mg PO DAILY [facility] Last Admin: 02/22/17 08:25 Dose: 5 mg Furosemide (Lasix) 20 mg PO DAILY [facility] Last Admin: 02/22/17 08:25 Dose: 20 mg Haloperidol (Haldol) 0.5 mg PO Q6H PRN PRN Reason: Extreme agitation Last Admin: 02/14/17 01:01 Dose: 0.5 mg Haloperidol Lactate (Haldol) 0.5 mg IM Q6H PRN PRN Reason: Extreme agitation Last Admin: 02/18/17 19:55 Dose: 0.5 mg Lidocaine (Lidoderm) 1 patch TOP DAILY [facility] Last Admin: 02/22/17 08:29 Dose: 1 patch Lidocaine HCl/Dextrose (Lidoderm Patch Removal) 1 removal TOP 2100 [facility] Last Admin: 02/21/17 20:38 Dose: 1 removal Lorazepam (Ativan) 0.5 mg PO Q6H PRN PRN Reason: Extreme agitation Last Admin: 02/13/17 15:29 Dose: 0.5 mg Lorazepam (Ativan Inj) 0.5 mg IM Q6H PRN PRN Reason: Extreme agitation Last Admin: 02/21/17 20:30 Dose: 0.5 mg Magnesium Hydroxide (Mom) 30 ml PO DAILY PRN PRN Reason: Constipation Metoprolol Tartrate (Lopressor) 12.5 mg PO BIDWM [facility] Last Admin: 02/22/17 08:26 Dose: 12.5 mg Nitroglycerin (Nitro-Dur 0.6 Mg/Hr) 1 patch TD DAILY [facility] Last Admin: 02/22/17 08:29 Dose: 1 patch Nitroglycerin (Nitro-Dur Patch Removal) 1 removal TD 2100 [facility] Last Admin: 02/21/17 20:39 Dose: 1 removal Omeprazole (Prilosec) 20 mg PO ACB [facility] Last Admin: 02/22/17 08:25 Dose: 20 mg Polyethylene Glycol (Miralax) 17 gm PO DAILY [facility] Last Admin: 02/22/17 08:25 Dose: 17 gm Quetiapine Fumarate (Seroquel) 12.5 mg PO Q6H PRN PRN Reason: Agitation Quetiapine Fumarate (Seroquel) 50 mg PO HS [facility] Last Admin: 02/21/17 20:39 Dose: 50 mg Senna/Docusate Sodium (Senna Plus Tablet) 2 tab PO BID [facility] Last Admin: 02/22/17 08:27 Dose: 1 tab Subjective: Pt seen and chart examined. Nursing reports pt did a little better last night. Some hallucinations but improved. Did receive Ativan for agitation and anxiety last night. On face to face the pt states she is doing well. She is pleasant but confused. Tolerating meds. Denies any pain. Start Time: 10:45 Stop Time: 11:00 Mental Status Exam Vitals: Last Vital Signs Temp 97.3 F 02/22/17 08:00 Pulse 75 02/22/17 08:00 Resp 18 02/22/17 08:00 BP 164/79 H 02/22/17 08:00 Pulse Ox 95 02/22/17 08:00 Height: 1.65 m Weight: 74.6 kg - Mental Status Exam Muscle Strength/Tone: Weak (Difficult to assess due to injury) Dressing: Casual Grooming: Other (Limited) Attitude: Cooperative (intermittent) Motor Activity: Retardation Eye Contact: Fair Speech: Slowed Volume: Soft Rhythm: Mumbled Orientation: Disoriented to place, Disoriented to situation, Oriented to person , Oriented to time Mood: Neutral (appropriate affect) Rate of Thoughts: Delayed Thought Organization: Other (varies, relatively organized today) Associations: Illogical Abstract Reasoning: Impaired, concrete Thought Content: Normal Perception/Psychotic: Psychotic Current Hallucinations: Visual Language: Naming Impaired Fund of Knowledge: Other (decreased) Memory: Poor-immediate, Poor-recent Suicidal Ideation: Denies Homicidal Ideation: Denies Insight: Impaired Judgement: Impaired Impulse Control: Fair - Laboratory Result Diagrams: 02/16/17 06:51 02/16/17 06:51 Assessment and Plan (1) Humeral head fracture Qualifiers: Encounter type: initial encounter Fracture type: closed Laterality: right Qualified Code(s): S42.291A - Other displaced fracture of upper end of right humerus, initial encounter for closed fracture Current visit: Yes Status: Acute (2) Major neurocognitive disorder Problem details: Lewy Body Dementia suspected Current visit: Yes Status: Acute (3) Delirium due to another medical condition Current visit: Yes Status: Acute Hospital Course Summary Disclaimer: The visit summary below is not to be considered part of the above Progress Note. Hospital Course: Assessment Major neurocognitive disorder with acute psychosis. Hypokalemia, acute, present on admission. Anemia, normocytic, normochromic, unspecified, present on admission. 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 Hypertension, uncontrolled, chronic. GERD, chronic. Hypercholesterolemia, chronic. Plan - 02/10/07: [place]. Agree with admission to [facility] for further psychiatric evaluation and treatment. Provide safe and supportive environment. Fall prior to admission resulting in right slightly displaced fracture of greater tuberosity of humeral head. Sling placed prior to admission. Will consult Dr. Marcus for orthopedic evaluation and treatment recommendations. Ice to area as needed. [place] 5mg Q6 hours as needed for pain control. Maintain sling. History of hypertension with urgency noted prior to admission. It is unclear if patient has been taking her home medications regularly. Will continue home medications (cardizem, enalapril, lasix and metoprolol) and monitor blood pressure closely. Will adjust medications as needed as trends are revealed. Hypokalemia noted on admission at 3.2. Will give 40 mEq KCl po now and recheck BMP in AM. Given history of uncontrolled hypertension, will change diet to reduced fat, low sodium. Recommend obtaining CXR and CT head as part of admission evaluation especially given recent fall. Medical records indicate atorvastatin as home medication. LFT within normal range. Will restart at home dose of 10mg daily. Upon discharge, patient's care will be returned to her PCP, Dr. Adamson. 02/11/17 Psych: Suspect delirium though cause is not clear. Will order CT of head for the time being. Would of course like to minimize narcotic use but this will be difficult given patient's injury. Will plan to restart Namenda 10mg BID once more stable and holding statin as it can lead to increased agitation. 02/12/17 Psych: CT of head has not yet been completed - will review as soon as complete. Agitation, confusion decreasing - likely because delirium improving. Will continue to monitor and assess whether patient needs meds for agitation ( she has not today). Repeat SLUMS on Thursday. Plan - 02/13/17: Overall, Isa appears to be doing well medically. Continue psychiatric care per Dr. Pena and team. She continues to have visual hallucinations. Continue to provide safe and supportive environment. Blood pressure noted to be consistently elevated. Review of medications reveals enalapril at lowest dose of 2.5. Will increase to 5mg daily and continue to monitor blood pressure closely. BMP today was unremarkable with SCr at 0.7. Monitor renal function periodically throughout admission. Continue to encourage oral intake. Patient was seen and evaluated by Dr. Marcus who did not feel the patient was a good candidate for surgical correction of her right humerus fracture and recommended conservative care with sling. Appreciate his time and expertise. Will recheck BMP and CBC on 02/16 to monitor blood counts, electrolytes and renal function. 02/13/17 Psych: Sensorium, cognition varies - likely due to delirium. Requested that CT be completed today and once complete can make further treatment decisions. If continues to have agitation or hallucinations as reported at home , plan to start antipsychotic. 02/14/17 14:24 Continues to be confused with visual hallucinations. Willcontact family about starting antipsychotic 02/15/17 11:10 VH improved and no behaviors noted. Continue current care 02/16/17 19:14 Remains agitated at night. Haldol 1mg PO 1900. gave consent 02/17/17 Psych: Patient became more psychotic after dose of Haldol last night - will switch to low-dose atypical (Seroquel 25mg PO q HS) tonight and monitor response. 02/17/17 Psych: Continue current care - did well with Seroquel last night, monitor response tonight. 02/19/17 Psych: Discontinued PRN Haldol, ordered Seroquel 12.5mg PO q 6hrs PRN agitation instead. Hopefully patient does well again tonight - will monitor, can likely return home with HH, PT/OT soon. 02/20/17 14:47 PT is doing better. Some agitation at night but improved. Continue current care 02/21/17 10:42 Continues to have some hallucinations and paranoia at night. Will increase Seroquel to 50mg QHS Plan - 02/22/17 ([place]) Overall, Roge is doing well. Behaviors in evening have improved with Seroquel. No reported hallucinations today. Continue psychiatric care per psychiatric team. Continue to provide safe and supportive environment. Anticipate discharge in the near future, hopefully 02/23 or 02/24. Blood pressure remains well controlled following increase in enalapril to 5mg on 02/13/17. Continue to monitor closely. Continue Cardizem, enalapril, lasix and metoprolol. UA on 02/19/17 was negative. Labs on 02/16/17 were unremarkable. Continue with current care. 02/22/17 11:20 Some hallucinations at night. Continue current care as Seroquel was just increased last night
[2017-02-22] MEDS: NITROGLYCERIN PATCH REMOVAL TD SCH (20:12)
[2017-02-22] MEDS: QUETIAPINE 25 MG TABLET PO SCH (20:12)
[2017-02-22] MEDS: LIDOCAINE PATCH REMOVAL TOP SCH (20:12)
[2017-02-22] MEDS: LORazepam 0.5 MG TABLET PO PRN (20:13)
[2017-02-23] MEDS: OMEPRAZOLE 20 MG CAPSULE PO SCH (06:09)
[2017-02-23] MEDS: POLYETHYL GLYCOL 3350 17gm PACKET PO SCH (09:05)
[2017-02-23] MEDS: FUROSEMIDE 20 MG TABLET PO SCH (09:05)
[2017-02-23] MEDS: LIDOCAINE 5% PATCH TOP SCH (09:05)
[2017-02-23] MEDS: NITROGLYCERIN 0.6 MG/HR PATCH TD SCH (09:06)
[2017-02-23] MEDS: SENNA + DOCUSATE TABLET PO SCH ×2 (09:07→20:13)
[2017-02-23] MEDS: QUETIAPINE 25 MG TABLET PO SCH ×2 (20:13→23:40)
[2017-02-23] MEDS: NITROGLYCERIN PATCH REMOVAL TD SCH (21:52)
[2017-02-23] MEDS: LIDOCAINE PATCH REMOVAL TOP SCH (21:52)
--- NOTE | 2017-02-23 21:53 | Neuropsych Progress Note ---
[facility] Subjective Date: 02/23/17 - Sujective/Severity of Illness Medications: Acetaminophen (Tylenol) 325 - 650 mg PO Q5H PRN PRN Reason: Discomfort Last Admin: 02/20/17 16:58 Dose: 325 mg Hydrocodone Bitart/Acetaminophen ([place] 5/325) 1 tab PO Q4H PRN PRN Reason: Pain Last Admin: 02/20/17 20:45 Dose: 1 tab Diltiazem HCl (Cardizem Cd) 180 mg PO DAILY [facility] Last Admin: 02/23/17 09:05 Dose: 180 mg Enalapril Maleate (Vasotec) 5 mg PO DAILY [facility] Last Admin: 02/23/17 09:05 Dose: 5 mg Furosemide (Lasix) 20 mg PO DAILY [facility] Last Admin: 02/23/17 09:05 Dose: 20 mg Haloperidol (Haldol) 0.5 mg PO Q6H PRN PRN Reason: Extreme agitation Last Admin: 02/14/17 01:01 Dose: 0.5 mg Haloperidol Lactate (Haldol) 0.5 mg IM Q6H PRN PRN Reason: Extreme agitation Last Admin: 02/18/17 19:55 Dose: 0.5 mg Lidocaine (Lidoderm) 1 patch TOP DAILY [facility] Last Admin: 02/23/17 09:05 Dose: 1 patch Lidocaine HCl/Dextrose (Lidoderm Patch Removal) 1 removal TOP 2100 [facility] Last Admin: 02/22/17 20:12 Dose: 1 removal Lorazepam (Ativan) 0.5 mg PO Q6H PRN PRN Reason: Extreme agitation Last Admin: 02/22/17 20:13 Dose: 0.5 mg Lorazepam (Ativan Inj) 0.5 mg IM Q6H PRN PRN Reason: Extreme agitation Last Admin: 02/21/17 20:30 Dose: 0.5 mg Magnesium Hydroxide (Mom) 30 ml PO DAILY PRN PRN Reason: Constipation Metoprolol Tartrate (Lopressor) 12.5 mg PO BIDWM [facility] Last Admin: 02/23/17 17:17 Dose: 12.5 mg Nitroglycerin (Nitro-Dur 0.6 Mg/Hr) 1 patch TD DAILY [facility] Last Admin: 02/23/17 09:06 Dose: 1 patch Nitroglycerin (Nitro-Dur Patch Removal) 1 removal TD 2100 [facility] Last Admin: 02/22/17 20:12 Dose: 1 removal Omeprazole (Prilosec) 20 mg PO ACB [facility] Last Admin: 02/23/17 06:09 Dose: 20 mg Polyethylene Glycol (Miralax) 17 gm PO DAILY [facility] Last Admin: 02/23/17 09:05 Dose: 17 gm Quetiapine Fumarate (Seroquel) 12.5 mg PO Q6H PRN PRN Reason: Agitation Quetiapine Fumarate (Seroquel) 50 mg PO HS [facility] Last Admin: 02/23/17 20:13 Dose: 50 mg Senna/Docusate Sodium (Senna Plus Tablet) 2 tab PO BID [facility] Last Admin: 02/23/17 20:13 Dose: Not Given Subjective: Patient seen and chart reviewed. Case discussed with treatment team. Patient is sleeping soundly during rounds. Patient reportedly requested PO Ativan last night for anxiety, which was effective. She has previously denied any SI or HI. She continues to have some VH but these are non-distressing in nature. She has previously denied any adverse side effects related to psychotropic medications. Nursing staff report patient has been pleasant and cooperative, without significant behavioral difficulties on the unit. She has been adherent with medications. She has not been exit-seeking, paranoid or delusional. Patient slept 8.75 hours overnight. VSS. Appetite is fair. Psychotropic PRNs required in the past 24 hours: Ativan 0.5mg PO x1 per patient request. MSE below based on last time patient was awake for interview by physician. Start Time: 06:20 Stop Time: 06:40 Mental Status Exam Vitals: Last Vital Signs Temp 97.9 F 02/23/17 16:00 Pulse 73 02/23/17 16:00 Resp 18 02/23/17 16:00 BP 109/60 02/23/17 16:00 Pulse Ox 94 02/23/17 16:00 Height: 1.65 m Weight: 74.6 kg - Mental Status Exam Muscle Strength/Tone: Weak (Difficult to assess due to injury) Dressing: Casual Grooming: Other (Limited) Attitude: Cooperative (intermittent) Motor Activity: Retardation Eye Contact: Fair Speech: Slowed Volume: Soft Rhythm: Mumbled Orientation: Disoriented to place, Disoriented to situation, Oriented to person , Oriented to time Mood: Neutral (appropriate affect) Rate of Thoughts: Delayed Thought Organization: Other (varies, relatively organized today) Associations: Illogical Abstract Reasoning: Impaired, concrete Thought Content: Normal Perception/Psychotic: Psychotic Current Hallucinations: Visual Language: Naming Impaired Fund of Knowledge: Other (decreased) Memory: Poor-immediate, Poor-recent Suicidal Ideation: Denies Homicidal Ideation: Denies Insight: Impaired Judgement: Impaired Impulse Control: Fair - Laboratory Result Diagrams: 02/16/17 06:51 02/23/17 07:02 Laboratory Results - last 24 hr 02/23/17 07:02 Turbidity < 20 Sodium 142 Potassium 3.9 Chloride 103 Carbon Dioxide 31 H Anion Gap 8 BUN 21.0 H Creatinine 0.8 GFR Calculation 68 BUN/Creatinine Ratio 26 Glucose 93 Calculated Osmolality 276 Calcium 9.2 Icterus Index < 2 Specimen Hemolysis < 15 Assessment and Plan (1) Humeral head fracture Qualifiers: Encounter type: initial encounter Fracture type: closed Laterality: right Qualified Code(s): S42.291A - Other displaced fracture of upper end of right humerus, initial encounter for closed fracture Current visit: Yes Status: Acute (2) Major neurocognitive disorder Problem details: Lewy Body Dementia suspected Current visit: Yes Status: Acute (3) Delirium due to another medical condition Current visit: Yes Status: Acute Hospital Course Summary Disclaimer: The visit summary below is not to be considered part of the above Progress Note. Hospital Course: Assessment Major neurocognitive disorder with acute psychosis. Hypokalemia, acute, present on admission. Anemia, normocytic, normochromic, unspecified, present on admission. 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 Hypertension, uncontrolled, chronic. GERD, chronic. Hypercholesterolemia, chronic. Plan - 02/10/07: [place]. Agree with admission to [facility] unit for further psychiatric evaluation and treatment. Provide safe and supportive environment. Fall prior to admission resulting in right slightly displaced fracture of greater tuberosity of humeral head. Sling placed prior to admission. Will consult Dr. Marcus for orthopedic evaluation and treatment recommendations. Ice to area as needed. [place] 5mg Q6 hours as needed for pain control. Maintain sling. History of hypertension with urgency noted prior to admission. It is unclear if patient has been taking her home medications regularly. Will continue home medications (cardizem, enalapril, lasix and metoprolol) and monitor blood pressure closely. Will adjust medications as needed as trends are revealed. Hypokalemia noted on admission at 3.2. Will give 40 mEq KCl po now and recheck BMP in AM. Given history of uncontrolled hypertension, will change diet to reduced fat, low sodium. Recommend obtaining CXR and CT head as part of admission evaluation especially given recent fall. Medical records indicate atorvastatin as home medication. LFT within normal range. Will restart at home dose of 10mg daily. Upon discharge, patient's care will be returned to her PCP, Dr. Adamson. 02/11/17 Psych: Suspect delirium though cause is not clear. Will order CT of head for the time being. Would of course like to minimize narcotic use but this will be difficult given patient's injury. Will plan to restart Namenda 10mg BID once more stable and holding statin as it can lead to increased agitation. 02/12/17 Psych: CT of head has not yet been completed - will review as soon as complete. Agitation, confusion decreasing - likely because delirium improving. Will continue to monitor and assess whether patient needs meds for agitation ( she has not today). Repeat SLUMS on Thursday. Plan - 02/13/17: Overall, Isa appears to be doing well medically. Continue psychiatric care per Dr. Pena and team. She continues to have visual hallucinations. Continue to provide safe and supportive environment. Blood pressure noted to be consistently elevated. Review of medications reveals enalapril at lowest dose of 2.5. Will increase to 5mg daily and continue to monitor blood pressure closely. BMP today was unremarkable with SCr at 0.7. Monitor renal function periodically throughout admission. Continue to encourage oral intake. Patient was seen and evaluated by Dr. Marcus who did not feel the patient was a good candidate for surgical correction of her right humerus fracture and recommended conservative care with sling. Appreciate his time and expertise. Will recheck BMP and CBC on 02/16 to monitor blood counts, electrolytes and renal function. 02/13/17 Psych: Sensorium, cognition varies - likely due to delirium. Requested that CT be completed today and once complete can make further treatment decisions. If continues to have agitation or hallucinations as reported at home , plan to start antipsychotic. 02/14/17 14:24 Continues to be confused with visual hallucinations. Willcontact family about starting antipsychotic 02/15/17 11:10 VH improved and no behaviors noted. Continue current care 02/16/17 19:14 Remains agitated at night. Haldol 1mg PO 1900. gave consent 02/17/17 Psych: Patient became more psychotic after dose of Haldol last night - will switch to low-dose atypical (Seroquel 25mg PO q HS) tonight and monitor response. 02/17/17 Psych: Continue current care - did well with Seroquel last night, monitor response tonight. 02/19/17 Psych: Discontinued PRN Haldol, ordered Seroquel 12.5mg PO q 6hrs PRN agitation instead. Hopefully patient does well again tonight - will monitor, can likely return home with HH, PT/OT soon. 02/20/17 14:47 PT is doing better. Some agitation at night but improved. Continue current care 02/21/17 10:42 Continues to have some hallucinations and paranoia at night. Will increase Seroquel to 50mg QHS Plan - 02/22/17 ([place]) Overall, Roge is doing well. Behaviors in evening have improved with Seroquel. No reported hallucinations today. Continue psychiatric care per psychiatric team. Continue to provide safe and supportive environment. Anticipate discharge in the near future, hopefully 02/23 or 02/24. Blood pressure remains well controlled following increase in enalapril to 5mg on 02/13/17. Continue to monitor closely. Continue Cardizem, enalapril, lasix and metoprolol. UA on 02/19/17 was negative. Labs on 02/16/17 were unremarkable. Continue with current care. 02/22/17 11:20 Some hallucinations at night. Continue current care as Seroquel was just increased last night 02/23/17 Psych: Patient has done well with increased Seroquel, with only mild anxiety at HS (PRN Ativan effective). SW will discuss discharge planning with family today. Safety recommendations including 24/7 supervision and locks on all doors have been discussed with family.
[2017-02-24 10:51] VITALS: BP 168/85; PULSE 71; RESP 18; TEMP 97; O2SAT 96
[2017-02-24] MEDS: OMEPRAZOLE 20 MG CAPSULE PO SCH (11:07)
[2017-02-24] MEDS: FUROSEMIDE 20 MG TABLET PO SCH (11:08)
[2017-02-24] MEDS: NITROGLYCERIN 0.6 MG/HR PATCH TD SCH (11:09)
[2017-02-24] MEDS: LIDOCAINE 5% PATCH TOP SCH (11:09)
[2017-02-24] MEDS: SENNA + DOCUSATE TABLET PO SCH (11:10)
[2017-02-24] MEDS: POLYETHYL GLYCOL 3350 17gm PACKET PO SCH (11:11)
== END 2017-02-24 13:00 | disposition home or self-care (01) | DRG 884 ==
LOC: ED 18:30 → GEN 19:40
PROVIDERS: ADMIT Psychiatry & Neurology Psychiatry; ATTEND Psychiatry & Neurology Psychiatry